=== PATIENT | male | born 1945 | race Caucasian/White ===

== ENCOUNTER 2024-04-08 11:23 | Observation (INO) | payer MEDICARE, BC, SELFPAY ==
[2024-04-08] VITALS (18 sets, daily range): BP systolic 148–199; BP diastolic 38–59; PULSE 61–64; O2SAT 96; BMI 19.8; BMI 19.1
--- NOTE | 2024-04-08 05:40 | ED.GENMED ---
History of Present Illness
<Blu Donaldson, DO - Last Filed: 04/08/24 05:46>
General
Chief Complaint: Dizziness
Source: patient
Exam Limitations: none
Time Seen by Provider: 04/08/24 05:31
History of Present Illness
History of Present Illness:
See MDM
Past History
<Blu Donaldson, DO - Last Filed: 04/08/24 05:46>
Past History
ED Past Medical History: Other (Parkinsons)
ED Past Surgical History: None
Social History
Tobacco: Non-smoker
Alcohol: None
Phy Exam
<Blu Donaldson, DO - Last Filed: 04/08/24 05:46>
Physical Exam
Physical Exam:
See MDM
Course
<Blu Donaldson, DO - Last Filed: 04/08/24 05:46>
Orders/Labs/Results
Orders:
Orders
04/08/24 05:20
Electrocardiogram (*1) Urgent
Reason for Study: Vertigo / Dizzy
04/08/24 05:21
EKG- Treatment ONCE
04/08/24 05:32
Cardiovascular Evaluation Urgent
Comment: ADD ON
Complete Blood Count/With Diff Urgent
Comprehensive Metabolic Panel Urgent
Folate Urgent
Comment: ADD ON
Glycohemoglobin (HgbA1c) Urgent
Magnesium Urgent
Comment: PHOS
Phosphorus Urgent
Comment: ADDON
TSH Reflex To Free T4 Urgent
Comment: ADD ON
Vitamin B12 Urgent
Comment: ADD ON
04/08/24 05:39
CT Head W/o Iv Contrast Urgent
Comment:
Reason For Exam: dizziness
0.9% Sodium Chloride 1000 ml [Nss] 1,000 ml IV BOLUS
Ondansetron Injectable [Zofran] 4 mg IV NOW STA
diazePAM [Valium Injection] 2 mg IV NOW STA
04/08/24 07:07
PT Consult [Pt Eval And Treat] Urgent
Treatment: vertigo
Activity Level: As Tolerated
04/08/24 08:44
HydrALAZINE [Apresoline] 5 mg IV NOW STA
diazePAM [Valium Injection] 1 mg IV NOW STA
04/08/24 08:59
Add On- LAB Urgent
Tests Added?: TSH with reflex FT4, HgbA1c, Lipid panel
MRI Brain [MR Brain W/o & With Contrast] Routine
Comment:
Reason For Exam: vertigo
Recent pill cam endoscopy?: No
Orthostatic Vital Signs As Directed
Orthostatic VS Frequency: Now
04/08/24 10:03
COVID-19 Antigen Stat
Source: Nasal Swab
Influenza A+B Rapid Molecular Stat
SIGRID Source: Nasal Swab
Specimen Description:
04/08/24 10:20
CT Head & Neck Angio W/wo IV Urgent
Comment:
Reason For Exam: acute vertigo
Aspirin 325 mg PO NOW STA
04/08/24 10:23
Meclizine [Antivert] 25 mg PO Q8HPRN PRN
04/08/24 10:28
Add On- LAB Urgent
Tests Added?: B12, folate serum
04/08/24 10:29
Add On- LAB Urgent
Tests Added?: Magnesium, phosphorus
UA Reflex to Culture [Urinalysis Reflex To Culture] Urgent
04/08/24 10:30
Admit/Transfer Patient As Directed
Co-Sign Provider:
Level of Care: Observation services
Assign to:: Telemetry
Physician / Group: Hospitalist
Diagnosis: vertigo
Reason for Telemetry: CVA/TIA
Date to Stop Telemetry: 04/11/24
Time to Stop Telemetry: 11:00
CR Chest Portable - 1 View Urgent
Comment:
Reason For Exam: weakness, eval for pneumonia
Reason Study Needs to be Portable: Unable to Transport
04/08/24 10:31
Code Status As Directed
Resuscitation Status: Full Code
PRN Pain Medication Management As Directed
May give lesser potent ordered pain med per pt: Yes
preference::
Protocol:: Medication orders for pain may be administered in a
manner that supports deferring to patient preference
when the pt is:
- Requesting an ordered lesser potent pain medication.
Least to most potent pain medications are defined
as: acetaminophen < NSAID < tramadol < opioids
(morphine, oxycodone, hydromorphone).
- Requesting a lesser dose of the same medication IF
ORDERED.
- Requesting a less intrusive route of administration
if both routes are prescribed by the provider (PO <
IV).
04/08/24 18:00
Atorvastatin [Lipitor] 80 mg PO QPM
04/09/24 08:00
Aspirin Chewable [Low Strength Aspirin] 81 mg PO DAILY
04/11/24 11:00
DC Protocol for Telemetry ONCE
Abnormal Lab Results
04/08/24
05:32
RBC 3.89 L 10^6/uL
(4.70-6.10)
Hgb 12.9 L g/dL
(13.0-18.0)
Hct 38.1 L %
(39.0-52.0)
MCV 97.9 H fL
(80.0-94.0)
MCH 33.2 H pg
(27.0-31.0)
Absolute Monos (auto) 0.8 H 10^3/uL
(0.1-0.6)
Monocytes % 14.1 H %
(1.7-9.3)
BUN 21 H mg/dl
(9-20)
Glucose 127 H mg/dl
(70-99)
04/08/24 05:32
04/08/24 05:32
Vital Signs
Initial and Last Documented VS:
Initial Vital Signs
Temp Pulse Resp BP Pulse Ox
36.2 C 62 20 199/53 98
04/08/24 05:21 04/08/24 05:21 04/08/24 05:21 04/08/24 05:21 04/08/24 05:21
Last Documented Vital Signs
Temp Pulse Resp BP Pulse Ox
36.4 C 65 16 194/59 97
04/08/24 12:55 04/08/24 12:55 04/08/24 12:55 04/08/24 12:55 04/08/24 12:55
<Yanick Farley MD - Last Filed: 04/08/24 14:48>
Orders/Labs/Results
Orders:
Orders
04/08/24 05:20
Electrocardiogram (*1) Urgent
Reason for Study: Vertigo / Dizzy
04/08/24 05:21
EKG- Treatment ONCE
04/08/24 05:32
Cardiovascular Evaluation Urgent
Comment: ADD ON
Complete Blood Count/With Diff Urgent
Comprehensive Metabolic Panel Urgent
Folate Urgent
Comment: ADD ON
Glycohemoglobin (HgbA1c) Urgent
Magnesium Urgent
Comment: PHOS
Phosphorus Urgent
Comment: ADDON
TSH Reflex To Free T4 Urgent
Comment: ADD ON
Vitamin B12 Urgent
Comment: ADD ON
04/08/24 05:39
CT Head W/o Iv Contrast Urgent
Comment:
Reason For Exam: dizziness
0.9% Sodium Chloride 1000 ml [Nss] 1,000 ml IV BOLUS
Ondansetron Injectable [Zofran] 4 mg IV NOW STA
diazePAM [Valium Injection] 2 mg IV NOW STA
04/08/24 07:07
PT Consult [Pt Eval And Treat] Urgent
Treatment: vertigo
Activity Level: As Tolerated
04/08/24 08:44
HydrALAZINE [Apresoline] 5 mg IV NOW STA
diazePAM [Valium Injection] 1 mg IV NOW STA
04/08/24 08:59
Add On- LAB Urgent
Tests Added?: TSH with reflex FT4, HgbA1c, Lipid panel
MRI Brain [MR Brain W/o & With Contrast] Routine
Comment:
Reason For Exam: vertigo
Recent pill cam endoscopy?: No
Orthostatic Vital Signs As Directed
Orthostatic VS Frequency: Now
04/08/24 10:03
COVID-19 Antigen Stat
Source: Nasal Swab
Influenza A+B Rapid Molecular Stat
SIGRID Source: Nasal Swab
Specimen Description:
04/08/24 10:20
CT Head & Neck Angio W/wo IV Urgent
Comment:
Reason For Exam: acute vertigo
Aspirin 325 mg PO NOW STA
04/08/24 10:23
Meclizine [Antivert] 25 mg PO Q8HPRN PRN
04/08/24 10:28
Add On- LAB Urgent
Tests Added?: B12, folate serum
04/08/24 10:29
Add On- LAB Urgent
Tests Added?: Magnesium, phosphorus
UA Reflex to Culture [Urinalysis Reflex To Culture] Urgent
04/08/24 10:30
Admit/Transfer Patient As Directed
Co-Sign Provider:
Level of Care: Observation services
Assign to:: Telemetry
Physician / Group: Hospitalist
Diagnosis: vertigo
Reason for Telemetry: CVA/TIA
Date to Stop Telemetry: 04/11/24
Time to Stop Telemetry: 11:00
CR Chest Portable - 1 View Urgent
Comment:
Reason For Exam: weakness, eval for pneumonia
Reason Study Needs to be Portable: Unable to Transport
04/08/24 10:31
Code Status As Directed
Resuscitation Status: Full Code
PRN Pain Medication Management As Directed
May give lesser potent ordered pain med per pt: Yes
preference::
Protocol:: Medication orders for pain may be administered in a
manner that supports deferring to patient preference
when the pt is:
- Requesting an ordered lesser potent pain medication.
Least to most potent pain medications are defined
as: acetaminophen < NSAID < tramadol < opioids
(morphine, oxycodone, hydromorphone).
- Requesting a lesser dose of the same medication IF
ORDERED.
- Requesting a less intrusive route of administration
if both routes are prescribed by the provider (PO <
IV).
04/08/24 18:00
Atorvastatin [Lipitor] 80 mg PO QPM
04/09/24 08:00
Aspirin Chewable [Low Strength Aspirin] 81 mg PO DAILY
04/11/24 11:00
DC Protocol for Telemetry ONCE
Abnormal Lab Results
04/08/24
05:32
RBC 3.89 L 10^6/uL
(4.70-6.10)
Hgb 12.9 L g/dL
(13.0-18.0)
Hct 38.1 L %
(39.0-52.0)
MCV 97.9 H fL
(80.0-94.0)
MCH 33.2 H pg
(27.0-31.0)
Absolute Monos (auto) 0.8 H 10^3/uL
(0.1-0.6)
Monocytes % 14.1 H %
(1.7-9.3)
BUN 21 H mg/dl
(9-20)
Glucose 127 H mg/dl
(70-99)
04/08/24 05:32
04/08/24 05:32
Vital Signs
Initial and Last Documented VS:
Initial Vital Signs
Temp Pulse Resp BP Pulse Ox
36.2 C 62 20 199/53 98
04/08/24 05:21 04/08/24 05:21 04/08/24 05:21 04/08/24 05:21 04/08/24 05:21
Last Documented Vital Signs
Temp Pulse Resp BP Pulse Ox
36.4 C 65 16 194/59 97
04/08/24 12:55 04/08/24 12:55 04/08/24 12:55 04/08/24 12:55 04/08/24 12:55
<Blu Donaldson, DO - Last Filed: 04/08/24 05:46>
MDM/Problems Addressed
Differential Diagnosis Includes:
HPI and MDM Narrative:
78-year-old male presenting for evaluation of dizziness. Patient states it occurred suddenly at home a few hours ago. On arrival, patient is uncomfortable. He has obvious horizontal nystagmus bilaterally but has no cerebellar signs. Patient
found to be hypertensive but there is a wide pulse pressure. His systolic blood pressures in the 200s and his diastolic blood pressure is in the 60s to 70s. He denies prior history of high blood pressure. Given his history, will treat as likely
BPPV with IV Valium. Will give fluids and obtain CT head. Will continue to monitor blood pressure
Physical exam
General: Mildly uncomfortable
HEENT: protecting airway. Horizontal nystagmus bilaterally
Neck: appears supple
CV: No evidence of cyanosis. Regular rate and rhythm
Resp: No accessory muscle use
Abd: Non-distended
Extremities: No deformities
Neuro: alert. Normal finger-nose bilaterally
Psych: Normal affect
Skin: Intact
Problems Addressed including Acute and Chronic Conditions affecting care:
1. Vertigo
Acuity: acute
Prognosis: stable
Details: Given age and symptoms, will obtain CT head. Will give dose of IV Valium
2. [ ]
Acuity: acute
Prognosis: stable
Details:
3. [ ]
Acuity: acute
Prognosis: stable
Details:
4. [ ]
Acuity: acute
Prognosis: stable
Details:
5. [ ]
Acuity:
Prognosis:
Details:
Updates
Differential Diagnosis (but not limited to): Vertigo, posterior stroke
Testing considered: CT angiogram head and neck
Drug therapy (if applicable): OTC meds, please see d/c instruction regarding Rx drugs
Amount and/or Complexity of Data Reviewed
Clinical info obtained from: Patient
External data reviewed: N/A
Labs I independently reviewed (but not limited to): [ ]
Radiology: N/A
Pulse Ox: not hypoxic
EKG independently reviewed: Sinus rhythm, normal axis, no STEMI
[place] Hand: Sinus rhythm
Critical Care: N/A
Risk of Complication:
Social Determinants of health: Good social support
Discussed with other providers: N/A
Escalation of Care includes Admit/Obs: After being observed in the Emergency Department, pt stable for discharge.
Occasional wrong word or 'sound a like' substitutions may have occurred due to the inherent limitations of voice recognition software. Read the chart carefully and recognize, using context, where substitutions have occurred.
<Yanick Farley MD - Last Filed: 04/08/24 14:48>
*Critical Care Note
Total Time (30-74mins, 75-104mins- exclusive of procedures): Not Applicable
<Yanick Farley MD - Last Filed: 04/08/24 14:48>
Update Note
Update Note:
UPDATE (Yanick Farley MD)
I have seen and evaluated the patient after signout and reviewed all labs and imaging.
Focused HPI: 78-year-old male presented with dizziness acute onset after waking up in the bathroom this morning. Describes room spinning sensation associate with nausea vomiting. No other neurologic complaints.
Physical exam: Awake alert laying still in bed. No cranial nerve deficits. Motor and sensory intact all extremities.
Medical Decision Makin-year-old male presenting with vertigo. Noted to be hypertensive and he remains hypertensive. He had labs including a CBC and a CMP which showed no clinically significant abnormalities. CT head negative for any acute
pathology. EKG shows sinus rhythm. He was given IV Valium and fluids but reports minimal improvement. Will repeat Valium. Treat blood pressure. Admit for continued management of vertigo and to rule out acute CVA. Discussed with hospitalist.
ED Attending Note
<Blu Donaldson DO - Last Filed: 04/08/24 05:46>
-
Portions of this chart may have been created with voice recognition software.� Occasional wrong word or��sound alike� substitutions may have occurred due to the inherent limitations of voice recognition software.
Discharge Plan
Departure
Patient Disposition: Admit
Date of Disposition: 04/08/24
Time of Disposition: 08:44
Admit to doctor: Cat[facility]
Presentation/result/management discussed w/ accepting MD/DO: Hospitalist
Discharge Problem:
Vertigo
Interventions
Interventions:
*Risk Screen - Suicide Last Done: 04/08/24 05:21
*General Assessment Last Done: 04/08/24 05:21
*Neglect/Abuse Screening Last Done: 04/08/24 05:21
ED- Neurological Assessment Last Done: 04/08/24 05:38
ED Swallowing Screen Last Done: 04/08/24 05:38
[2024-04-08 05:44] LABS: % Basophils 0.9 % (0-2); % Eosinophils 1.1 % (0-6); % Immature Granulocytes 0.4 % (0-0.5); % Lymphocytes 21.3 % (20.5-51.1); % Monocytes 14.1 % (1.7-9.3); % Neutrophils 62.2 % (42.2-75.2); Absolute Basophils 0.1 10^3/uL (0-0.2); Absolute Eosinophils 0.1 10^3/uL (0-0.7); Absolute Lymphocytes 1.2 10^3/uL (1.2-3.4); Absolute Monocytes 0.8 10^3/uL (0.1-0.6); Absolute Neutrophils 3.4 10^3/uL (1.4-6.5); Hematocrit 38.1 % (39.0-52.0); Hemoglobin 12.9 g/dL (13.0-18.0); Mean Corp Hgb Conc. 33.9 g/dL (33.0-37.0); Mean Corpuscular Hgb 33.2 pg (27.0-31.0); Mean Corpuscular Volume 97.9 fL (80.0-94.0); Mean Platelet Volume 9.4 fL (7.4-10.4); Nucleated Red Blood Cells % 0 % (-); Platelet Count 176 10^3/uL (130-400); Red Blood Cell Count 3.89 10^6/uL (4.70-6.10); Red Cell Dist. Width 13.4 % (11.5-14.5); White Blood Cell Count 5.4 10^3/uL (4.8-10.8)
[2024-04-08] MEDS: NSS 1000 IV (05:44)
[2024-04-08] MEDS: ZOFRAN 4 MG IV (05:45)
[2024-04-08] MEDS: VALIUM INJECTION 2 MG IV (05:46)
[2024-04-08 06:10] LABS: ALT (SGPT) < 10 U/L (0-50); AST (SGOT) 21 U/L (17-59); Albumin 3.6 g/dl (3.5-5.0); Alkaline Phosphatase 61 U/L (38-126); Blood Urea Nitrogen 21 mg/dl (9-20); Calcium 8.9 mg/dl (8.4-10.2); Carbon Dioxide 28 mmol/L (22-30); Chloride 101 mmol/L (98-107); Estimated Creatinine Clearance 70 ml/min; Glucose 127 mg/dl (70-99); Potassium 4.1 mmol/L (3.5-5.1); Sodium 137 mmol/L (135-145); Total Bilirubin 0.5 mg/dl (0.2-1.3); Total Protein 6.4 g/dl (6.3-8.2); eGFR > 60.00
[2024-04-08 09:51] LABS: HDL Cholesterol 86 mg/dl; LDL Cholesterol, Calculated 80 mg/dl; Total Cholesterol 178 mg/dl (50-199); Triglyceride 61 mg/dl (10-149); Very Low Density Lipoprotein 12 mg/dl (0-30)
[2024-04-08] MEDS: APRESOLINE 5 MG IV (10:06)
[2024-04-08] MEDS: VALIUM INJECTION 1 MG IV (10:06)
--- NOTE | 2024-04-08 10:15 | EDRN ---
This RN KI took over care on this pt at 10:15.
[2024-04-08 10:23] LABS: TSH Reflex To Free T4 1.51 uIU/ml (0.47-4.68)
--- NOTE | 2024-04-08 10:35 | HPS.HSE ---
Family Physician
-
Family Physician: Geoffrey Briones
Chief Complaint
-
vertigo
History of Present Illness
78yo M with PMHx of , parkinsons came with acute onset of vertigo at night, when he woke up from sleep to go to the bathroom, associated with profound generalized weakness. No fevers, chills or respiratory symptoms lately. As per bedside -
fascial asymmetry is known to her and hse sees no difference in fascial expression from usual. Neurologically: significant horizontal nystagmus, vertigo exacerbated on head movement without tinnitus
Medical History
Past Medical History
Past Medical History: Reports Other (See HPI)
Past Surgical History: Reports None
Social History
Tobacco: Non-smoker
Alcohol: None
Drug: None
Family History
Family History: Not pertinent
Allergies / Home Medications
Allergies reflects when Allergies were last updated in [facility].
Home Medications with original date entered in [facility]
Allergy/Medication List:
Allergies
Allergy/AdvReac Type Severity Reaction Status Date / Time
Penicillins Allergy Unknown Verified 04/08/24 05:35
Home Medications
budesonide 3 mg capsule,delayed,extended release 3 mg PO DAILY 04/08/24
carbidopa ER 25 mg-levodopa 100 mg tablet,extended release 1 tab PO HS 04/08/24
rasagiline 1 mg tablet 1 mg PO DAILY 04/08/24
Review of Systems
-
History Source: Patient
A 12 point ROS was completed and negative except as noted: Yes
Neurological: Reports See HPI
Physical Exam
Vital Signs
Vital Signs
Temp Pulse Resp BP Pulse Ox
97.2 F 59 12 171/42 96
04/08/24 05:21 04/08/24 10:06 04/08/24 09:00 04/08/24 10:06 04/08/24 09:00
Physical Exam
General: No Apparent Distress, Comfortable and Conversant
HEENT: NormoCephalic, Anicteric and Moist mucous membranes
Respiratory: Clear; No Wheezes, Rales or Crackles
Cardiac: S1/S2 and Regular Rhythm; No Murmur
GI: Soft, Non Tender and Non Distended
Genito-urinary: No costovertebral tender
Musculoskeletal: No Clubbing, No Cyanosis and No Edema
Skin: Warm; No Rash, Jaundice or Lesions
Neuro: Awake, Alert, Oriented, AO x 3, No Motor Deficits and Other (horizontal nystagmus)
Psych: Calm
Laboratory Results
-
04/08/24 05:32
04/08/24 05:32
Laboratory Results
Total Bilirubin 0.5 mg/dl (0.2-1.3) 04/08/24 05:32
AST 21 U/L (17-59) 04/08/24 05:32
ALT < 10 U/L (0-50) 04/08/24 05:32
Alkaline Phosphatase 61 U/L (38-126) 04/08/24 05:32
Data Reviewed
-
CT Scan: Report Reviewed by me
Lab Data: Labs Reviewed by me
Impression/Plan
-
78yo M with PMHx of , parkinsons came with acute onset of vertigo at night, when he woke up from sleep to go to the bathroom, associated with profound generalized weakness. No fevers, chills or respiratory symptoms lately. As per bedside -
fascial assymetry is known to her and hse sees no difference in fascial expression from usual. Neurologiscally significant horyzontal nystagmus, vertigo exacerbated on head movement without tinnitus
A/P:
#Acute vertigo r/o TIA/CVA
ASA, statin
CT head unremarkable
CTA head
Permissive hypertension, labetalol for BP>180/105
telemetry, echo, neurology consult
TSH, HGbA1c, lipid profile
MRI brain
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
meclizine PRN
#Malaise
#Mild macrocytic anemia
check COVID-19 and influenza
check B1`2, folate
PT/OT
can be 2/2 parkinsons
check ortho VS
check UA and chest XR, electrolytes
#UC
#Parkinson disease
cont home meds
DVT ppx SCDs until sroke ruled out
Full code as agreed with patient and bedside
I have spent at least 78min reviewing chart, test results, communication with consultants and direct patient care
[2024-04-08 10:44] LABS: COVID-19 Antigen Negative (Negative)
[2024-04-08 11:15] LABS: Phosphorus 3.7 mg/dl (2.5-4.5)
[2024-04-08 11:16] LABS: Glycohemoglobin (HgbA1c) 5.1 % (4.0-5.6)
[2024-04-08 11:53] LABS: Folate 11.7 ng/ml (2.76-20); Vitamin B12 249 pg/ml (239-931)
[2024-04-08] MEDS: SINEMET 25-100 1.5 TABLET PO (13:30)
--- NOTE | 2024-04-08 14:41 | CON.NEURO ---
Consultation
Order
Date of Consultation: 04/08/24
Requesting Provider:
Reason for Consult: Neurology Consultation Note.
HPI: This is a 78-year-old left-handed man who presented to [facility] on 04/08/2024 with vertigo. According to the patient reports waking up during the night to use the bathroom and experiencing vertigo before getting out of bed. He
is unsure whether the dizziness was provoked by movement or occurred at rest. The patient states that he still feels dizzy to a degree, but it does not worsen when moving his head from side to side. He also reports experiencing nausea.
No reports of head trauma, headaches, diplopia, worsening of baseline dysphagia to solids or dysarthria. History of similar episodes, ear pain or tinnitus. He did have recent travel via airplane.
Mr. Snow has a history of Parkinson's disease and is currently being treated with Carbidopa-Levodopa and Azilect 1 mg once a day. He reports developing resting tremor in his left hand that progressed to his left leg. The patient states that his
recurrent rim-enhancing behaviors have significantly subsided following initiation of melatonin in the past. The patient is not forthcoming with reporting/acknowledging visual hallucinations.
Mr. Snow denies any recent head trauma or memory issues. He has a history of back surgery, hernia repair, and cataract surgery. The patient is allergic to penicillin. He has not experienced any difficulties with swallowing, except when taking
medications. He reports being slim all his life but has lost some weight in recent years. The patient denies smoking or drinking alcohol. His family medical history includes his mother having COPD and slight dementia, and his father having emphysema.
ER VS: 199/53, 62, afebrile.
EKG:NSR, QTc Int : 499 ms
PDMP:none
Labs: Glucose�127, normal sodium, hemoglobin A1c, B12 249, normal TSH
CT head wo contrast
CTA head/neck-no evidence of high-grade stenosis.
Brain MRI wo josi-no acute infarcts, moderate leukoaraiosis.
PMH: Parkinsonism (2019),
PSH: Lumbar laminectomy, hernia surgery, bilateral cataract surgery,
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
FH: Mother�COPD, cognitive impairment in her early 90s, father had emphysema.
All: Penicillin,
ROS: Positive for weight loss
HENT: Positive for dysphagia to tablets, vertigo, hearing impairment
Eyes: Negative. Negative for photophobia, pain and visual disturbance.
Respiratory: Negative for cough, choking and shortness of breath.
Cardiovascular: Negative for chest pain, palpitations and leg swelling.
Gastrointestinal: Positive for nausea
Endocrine: Negative. Negative for cold intolerance.
Genitourinary: Negative for dysuria, flank pain and urgency.
Musculoskeletal: Positive for neck pain
Skin: Negative for rash.
Allergic/Immunologic: Negative. Negative for immunocompromised state.
Neurological: Positive for hand tremor, vertigo
Psychiatric/Behavioral: Positive for anxiety
General: Well developed. In no acute distress.
Cardio: Regular rate and rhythm without murmur. Extremities are without cyanosis or edema.
Neuro:
Mental Status: Alert, oriented to person, place, and date. Normal attention and recall. Good fund of knowledge. Follows complex requests across the midline. Comprehension, naming, and repetition intact. Impaired delayed recall
Cranial Nerves: Pupils are equally round, surgical EOMs full. Visual nicolas full to confrontation. No ptosis. Sustained nystagmus on the left lateral gaze and upgaze. V1-V3 intact to light touch and pinprick bilaterally, symmetric. Mild right
facial weakness. Poor hearing AU. The palate elevated well. SCMs and traps 5/5. Tongue midline. Mild dysarthria.
Motor: Increased motor toneL>R. No pronator or arm drift. Strength 5/5 throughout. No clonus.
Reflexes: 3+ throughout the upper extremities and 3+ knees. Black's�positive bilaterally. Jaw jerk�equivocal. Positive suprapatellar plantar responses flexor bilaterally.
Sensory: Normal vibration at the ankles
Coordination: Resting left hand arm and leg tremor. Mild action hand tremor, No dysmetria
Gait: deferred
Assessment and Plan:
I. Peripheral vertigo
II. Parkinsonism. ? LBD
III. Hypertensive urgency
IV. Prolonged QTc interval.
V. Cerebral microvascular disease.
-Fall precautions
-Continue Sinemet 25/100 1 and half tablet 3 times a day and Azilect 1 mg once a day
-Meclizine 25 mg every 8 hours as needed
-Check thiamine level before starting start thiamine IV
-Blood pressure normalization
-Start p.o. vitamin B12
-ENT consult
-PT
-DVT prophylaxis
I personally reviewed all radiology and labs along with past medical records pertinent to current medical problems. Total time spent in patient care is 60 minutes.
Thank you for allowing us to participate in the care of this patient. We will continue to follow. Please do not hesitate to contact us with any questions or concerns.
Subjective/Objective
Subjective Data
Date of Service: April 08, 2024
Objective Data
Vital Signs
Temp Pulse Resp BP Pulse Ox
36.4 C 65 16 194/59 97
04/08/24 12:55 04/08/24 12:55 04/08/24 12:55 04/08/24 12:55 04/08/24 12:55
Lab Results
04/08/24 05:32
04/08/24 05:32
Sodium 137 mmol/L (135-145) 04/08/24 05:32
Potassium 4.1 mmol/L (3.5-5.1) 04/08/24 05:32
BUN 21 mg/dl (9-20) H 04/08/24 05:32
Glucose 127 mg/dl (70-99) H 04/08/24 05:32
Calcium 8.9 mg/dl (8.4-10.2) 04/08/24 05:32
Phosphorus 3.7 mg/dl (2.5-4.5) 04/08/24 05:32
LDL Cholesterol, Calc 80 mg/dl 04/08/24 05:32
Vitamin B12 249 pg/ml (243-151) 04/08/24 05:32
Patient Allergies
Penicillins Allergy (Verified 04/08/24 05:35)
Unknown
Medications
-
Active Medications
Generic Name Dose Route Start Last Admin
Trade Name Freq PRN Reason Stop Dose Admin
Aspirin 81 mg 04/09/24 08:00
Aspirin 81 Mg Chewable Tablet PO 05/07/24 07:59
DAILY NUBIA
Atorvastatin Calcium 80 mg 04/08/24 18:00
Atorvastatin (Lipitor) 80 Mg Tablet PO 05/06/24 17:59
QPM NUBIA
Cyanocobalamin 1,000 mcg 04/08/24 13:00
Cyanocobalamin (1000 Mcg/Ml) 1 Ml Vial IM 05/06/24 12:59
DAILY NUBIA
Labetalol HCl 10 mg 04/08/24 13:51
Labetalol Hcl 5 Mg/1 Ml (20 Mg/4 Ml) Injection IV 05/06/24 13:50
Q6HPRN PRN
sbp>180 DBP>105
Meclizine HCl 25 mg 04/08/24 10:23
Meclizine 25 Mg Tablet PO 05/06/24 10:22
Q8HPRN PRN
vertigo
Home Medications
�Medication �Instructions �Recorded
budesonide 3 mg 3 mg PO DAILY 04/08/24
capsule,delayed,extended release
carbidopa ER 25 mg-levodopa 100 mg 1 tab PO HS 04/08/24
tablet,extended release
rasagiline 1 mg tablet 1 mg PO DAILY 04/08/24
[2024-04-08] MEDS: ASPIRIN 325 MG PO (15:45)
[2024-04-08] MEDS: CYANOCOBALAMIN 1000 MCG IM (15:47)
[2024-04-08] MEDS: ANTIVERT 25 MG PO (16:12)
--- NOTE | 2024-04-08 16:55 | EDRN ---
Pt received boxed lunch at this time.
[2024-04-08 18:21] LABS: APTT 32.7 Sec (23.4-35.0); INR 1.05
[2024-04-08] MEDS: THIAMINE INJECTION 100 MG IV (18:37)
[2024-04-08] MEDS: MELATONIN 10 MG PO (21:25)
[2024-04-08] MEDS: SINEMET CR 25-100 (EXTENDED RELEASE) 1 TABLET PO (21:25)
[2024-04-08 21:54] LABS: Urine Albumin Negative (Neg - Trace); Urine Bilirubin Negative (Negative); Urine Character Clear (Clear); Urine Color Yellow; Urine Glucose Negative (Negative); Urine Ketone 1+ (Negative); Urine Leukocyte Negative (Negative); Urine Nitrite Negative (Negative); Urine Occult Blood Negative (Negative); Urine Specific Gravity 1.015 (<1.030); Urine Urobilinogen Negative (Neg - 1+); Urine pH 6.5 (5.0-9.0)
[2024-04-09 03:38] VITALS: BP 152/49
[2024-04-09 06:41] VITALS: BP 149/50
[2024-04-09 07:23] LABS: % Basophils 0.5 % (0-2); % Eosinophils 0.9 % (0-6); % Immature Granulocytes 0.3 % (0-0.5); % Lymphocytes 20.3 % (20.5-51.1); % Monocytes 10.5 % (1.7-9.3); % Neutrophils 67.5 % (42.2-75.2); Absolute Eosinophils 0.1 10^3/uL (0-0.7); Absolute Lymphocytes 1.3 10^3/uL (1.2-3.4); Absolute Monocytes 0.7 10^3/uL (0.1-0.6); Absolute Neutrophils 4.3 10^3/uL (1.4-6.5); Hematocrit 36.6 % (39.0-52.0); Hemoglobin 12.3 g/dL (13.0-18.0); Mean Corp Hgb Conc. 33.6 g/dL (33.0-37.0); Mean Corpuscular Hgb 33.1 pg (27.0-31.0); Mean Corpuscular Volume 98.4 fL (80.0-94.0); Mean Platelet Volume 9.7 fL (7.4-10.4); Nucleated Red Blood Cells % 0 % (-); Platelet Count 167 10^3/uL (130-400); Red Blood Cell Count 3.72 10^6/uL (4.70-6.10); Red Cell Dist. Width 13.4 % (11.5-14.5); White Blood Cell Count 6.4 10^3/uL (4.8-10.8)
[2024-04-09 08:10] LABS: ALT (SGPT) < 10 U/L (0-50); AST (SGOT) 19 U/L (17-59); Albumin 3.1 g/dl (3.5-5.0); Alkaline Phosphatase 52 U/L (38-126); Blood Urea Nitrogen 16 mg/dl (9-20); Calcium 8.3 mg/dl (8.4-10.2); Carbon Dioxide 29 mmol/L (22-30); Chloride 100 mmol/L (98-107); Estimated Creatinine Clearance 67 ml/min; Glucose 80 mg/dl (70-99); HDL Cholesterol 76 mg/dl; LDL Cholesterol, Calculated 63 mg/dl; Potassium 3.7 mmol/L (3.5-5.1); Sodium 134 mmol/L (135-145); Total Bilirubin 1.2 mg/dl (0.2-1.3); Total Cholesterol 152 mg/dl (50-199); Total Protein 5.6 g/dl (6.3-8.2); Triglyceride 67 mg/dl (10-149); Very Low Density Lipoprotein 13 mg/dl (0-30); eGFR > 60.00
[2024-04-09 08:58] VITALS: BP 144/48; BP 150/49; PULSE 66; O2SAT 99
[2024-04-09 08:59] VITALS: BP 144/48; PULSE 67; O2SAT 99
[2024-04-09] MEDS: RASAGILINE MESYLATE 1 MG PO (09:13)
[2024-04-09] MEDS: CYANOCOBALAMIN 1000 MCG IM (09:13)
[2024-04-09] MEDS: ANTIVERT 25 MG PO (09:13)
[2024-04-09] MEDS: LOW STRENGTH ASPIRIN 81 MG PO (09:13)
[2024-04-09] MEDS: THIAMINE INJECTION 100 MG IV (09:14)
--- NOTE | 2024-04-09 10:32 | CM ---
BOO letter completed and placed on chart. Patient lives in a 2 story home, with a first floor set up for bed and bathroom, patient is independent with adl's and ambulation, no dme, patient is very active, runs. Patient drives. Home with spouse when
stable, no needs.
PCP: Geoffrey Briones
[facility] in [place].
Plan; Home when stable, no needs.
--- NOTE | 2024-04-09 10:36 | W.PN.HOSP.TC ---
Today's Communication/Plan
-
DC
Assessment / Plan
Assessment / Plan
78yo M with PMHx of , Parkinson came with acute onset of vertigo, eventually confirmed to be started couple of days prior to admission after he landed his flight from [place]. Improved. MRI brain showed: No acute intracranial abnormality noted.
CTA head/neck: no LVO and no clinically significant carotid stenosis. Vertigo improved, so patient was able to ambulate. Since no stroke and possible BPPV as an etiology of the vertigo -recommended outpatient ENT for audiogram. Found B12
deficiency. Medically stable for d/c home on meclizine PRN. Also concern for HTN urgency on admission started on low dose Nifedipine. Telemetry without clinically significant arrhythmia
A/P:
#Acute vertigo, possible BPPV vs labyrinthitis
CT head unremarkable
Permissive hypertension, labetalol for BP>180/105
telemetry, echo, neurology consult
TSH, HGbA1c, lipid profile
MRI brain
[employer]
bedside egg grader for diet
meclizine PRN
B1 test sent by neurologist
ENT as outpatient
#Malaise
#Mild macrocytic anemia 2/2 b12 deficiency
COVID-19 and influenza neg
b12 supplement
PT/OT
can be 2/2 Parkinson
check ortho VS
UA and chest XR unremarkable
#Hypertensive urgency
start Nifedipine as stroke ruled out
#UC
#Parkinson disease
cont home meds
DVT ppx SCDs until sroke ruled out
Full code as agreed with patient and bedside
I have spent at least 38min reviewing chart, test results, communication with consultants and direct patient care
Anticipated Discharge: Today
Subjective/Interval History
-
Date of Service: April 09, 2024
Objective Data
-
Labs:
Laboratory Results
04/09/24
06:15
WBC 6.4
Hgb 12.3 L
Hct 36.6 L
Plt Count 167
Sodium 134 L
Potassium 3.7
Chloride 100
Carbon Dioxide 29
BUN 16
Creatinine 0.7
Glucose 80
Calcium 8.3 L
Total Bilirubin 1.2
AST 19
ALT < 10
Alkaline Phosphatase 52
Vital Signs:
Vital Signs
Temp Pulse Resp BP Pulse Ox
97.1 F 60 18 149/50 97
04/09/24 06:41 04/09/24 06:41 04/09/24 06:41 04/09/24 06:41 04/09/24 06:41
Review of Systems
-
History Source: Patient
All other systems: Reviewed and negative
Physical Exam
-
General: No Apparent Distress
HEENT: Normocephalic
Cardiac: Regular Rhythm
GI: Soft, Nontender and Nondistended
Neuro: Awake, Alert, Oriented and AO x 3
Psych: Calm
--- NOTE | 2024-04-09 10:52 | W.DCSUMMARY ---
Discharge Summary
Discharge Data
Date of Admission: 04/08/24
Date of Discharge: 04/09/24
-
Pending Results: No
Hospital Course
78yo M with PMHx of , Parkinson came with acute onset of vertigo, eventually confirmed to be started couple of days prior to admission after he landed his flight from [place]. Improved. MRI brain showed: No acute intracranial abnormality noted.
CTA head/neck: no LVO and no clinically significant carotid stenosis. Vertigo improved, so patient was able to ambulate. Since no stroke and possible BPPV as an etiology of the vertigo -recommended outpatient ENT for audiogram. Found B12
deficiency. Neurology also started on thiamine. Medically stable for d/c home on meclizine PRN. Also concern for HTN urgency on admission started on low dose Nifedipine. Telemetry without clinically significant arrhythmia
I have spent at least 38min reviewing chart, test results, communication with consultants and direct patient care
Patient was managed for:
#Acute vertigo, possible BPPV vs labyrinthitis
#Malaise
#Mild macrocytic anemia 2/2 b12 deficiency
#Hypertensive urgency
#UC
#Parkinson disease
Discharge Plan
-
Patient Disposition: Home (Routine Discharge)
Discharge Diagnosis/Procedures: Vertigo
Diet: Low Cholesterol
Activity: As tolerated
Driving Restrictions: Not until seen by your Dr
Other Services: PT
Referrals:
Geoffrey Briones MD [Family Provider] -
Yanick Roberson MD [Active] - in less than 1 week (For audiogram)
Prescriptions:
New
cyanocobalamin (vitamin B-12) 1,000 mcg capsule
1,000 mcg PO DAILY Qty: 30 0RF
multivitamin Tablet
1 tab PO DAILY Qty: 30 0RF
nifedipine 30 mg Tablet Extended Release
30 mg PO DAILY Qty: 30 0RF
meclizine 25 mg Tablet
25 mg PO Q8HPRN PRN (Reason: vertigo) Qty: 90 0RF
thiamine HCl (vitamin B1) 100 mg capsule
100 mg PO DAILY Qty: 30 0RF
Continued
carbidopa-levodopa 25-100 mg Tablet Extended Release
1 tab PO HS
budesonide 3 mg Capsule,Delayed,Extend.Release
3 mg PO DAILY
rasagiline 1 mg Tablet
1 mg PO DAILY
melatonin 10 mg Tablet
10 mg PO HS PRN (Reason: sleep)
Discharge Orders:
Discharge Patient (As Directed); Ordered 04/09/24
Ordered By: David Bourgeois
Discharge Date and Time
Print Language: SOUTH SUDANESE
[2024-04-09] MEDS: PROCARDIA XL (EXTENDED RELEASE) 30 MG PO (11:06)
[2024-04-09 11:09] VITALS: BP 173/51
[2024-04-12 09:56] LABS: Vitamin B1, Whole Blood 138 nmol/L (70-180)
== END 2024-04-09 11:40 | disposition home or self-care (01) ==
LOC: 4 WEST ACU 11:23
PROVIDERS: ADMITTING PHYSICIAN Internal Medicine; CONSULT PHYSICIAN Psychiatry & Neurology Neurology; EMERGENCY PHYSICIAN Student in an Organized Health Care Education/Training Program; FAMILY PHYSICIAN Internal Medicine
DX: R42 Dizziness and giddiness (principal); G20.A1 Parkinson's disease without dyskinesia, without mention of fluctuations; R53.1 Weakness; I16.0 Hypertensive urgency; I49.8 Other specified cardiac arrhythmias; I44.4 Left anterior fascicular block; E53.8 Deficiency of other specified B group vitamins; I11.9 Hypertensive heart disease without heart failure; H55.00 Unspecified nystagmus; R11.2 Nausea with vomiting, unspecified; Z88.0 Allergy status to penicillin; D53.9 Nutritional anemia, unspecified; R53.81 Other malaise; R63.4 Abnormal weight loss; Z68.1 Body mass index [BMI] 19.9 or less, adult; Z11.52 Encounter for screening for COVID-19; Z83.6 Family history of other diseases of the respiratory system; Z82.0 Family history of epilepsy and other diseases of the nervous system
CPT/HCPCS: 70450; 70496; 70498; 70553; 71045; 80053; 80061; 81003; 82607; 82746; 83036; 83735; 84100; 84425; 84443; 85025; 85610; 85730; 87502; 87811; 93005; 96361; 96374; 96375; 96376; 97161; 97166; 99285; A9575; G0378; Q9967

== ENCOUNTER 2024-12-05 05:24 | Emergency (ER) | payer MEDICARE, BC, SELFPAY ==
[2024-12-05 05:32] VITALS: BP 170/100
[2024-12-05 06:04] LABS: Hematocrit 35.7 % (39.0-52.0); Hemoglobin 11.3 g/dL (13.0-18.0); Mean Corp Hgb Conc. 31.7 g/dL (33.0-37.0); Mean Corpuscular Volume 88.4 fL (80.0-94.0); Nucleated Red Blood Cells % 0 % (-); Platelet Count 301 10^3/uL (130-400); Red Cell Dist. Width 17.5 % (11.5-14.5)
[2024-12-05 06:05] VITALS: BP 188/94
[2024-12-05 06:15] VITALS: BMI 19.9
[2024-12-05 06:18] LABS: Urine Character Clear (Clear)
[2024-12-05 06:26] LABS: ALT (SGPT) < 10 U/L (0-50); AST (SGOT) 22 U/L (17-59); Albumin 4.3 g/dl (3.5-5.0); Alkaline Phosphatase 74 U/L (38-126); Blood Urea Nitrogen 22 mg/dl (9-20); Calcium 9.8 mg/dl (8.4-10.2); Carbon Dioxide 29 mmol/L (22-30); Chloride 102 mmol/L (98-107); Estimated Creatinine Clearance 69 ml/min; Glucose 85 mg/dl (70-99); Potassium 4.7 mmol/L (3.5-5.1); Sodium 136 mmol/L (135-145); Total Protein 8.2 g/dl (6.3-8.2); eGFR > 60.00
[2024-12-05 06:38] LABS: Troponin I 0.015 ng/ml
--- NOTE | 2024-12-05 06:51 | ED.GENMED ---
History of Present Illness
<Afshin Pollock MD, Resident - Last Filed: 12/05/24 14:26>
General
Chief Complaint: Cardiac Symptoms
Source: patient and spouse
Time Seen by Provider: 12/05/24 06:25
History of Present Illness
History of Present Illness:
Mr. Snow is a 79-year-old male with history of Parkinson's disease and CAD with bovine aortic valve replacement and triple bypass on 10/04/2024 CT A/P 2X thoracentesis (last one 2 weeks ago and next CXR scheduled Wednesday) for left pleural effusion
at [facility] who presented via EMS with hypertension (SBP 190s), sweats, and indigestion/burping since 3 AM. Per his , Mr. Snow has actually been hypotensive, especially orthostatic, and has had multiple falls since his surgery. They have
been working with his woodworking shop hand Dr. Grubbs at [facility] to correct his hypertension. He was started on midodrine 2.5 mg twice daily on Wednesday. Per their home BP log, Mr. Snow's sitting BP on Wednesday was 134/79, HR 62 and standing 103/68, HR
64. After his p.m. midodrine dose around 5 PM, his sitting BP was 195/103 and standing was 182/100. That was his last midodrine dose. His most recent BP on Wednesday was 200/93. Mr. Snow states that as of Wednesday night progressed into
Wednesday, he felt more more uncomfortable. He reports 'shaking,' burping, feeling tenderness in his mid/left abdomen, having intermittent palpitations, and being nauseous and anxious during this time. He denies back/chest pain, headache,
SOB, fevers, or recent travel. He also endorses urinary frequency that wakes him up once every 1 to 1-1/2 hours at night. His Parkinson's medications were also recently changed. Last week, his carbidopa-levodopa was stopped and he was started on
Crexont 70-280 4x daily.
Past History
<Afshin Pollock MD, Resident - Last Filed: 12/05/24 14:26>
Past History
ED Past Medical History: CAD (S/p triple bypass and AVR 09/2024) and Other (Parkinsons, history of Crohn's (apparently resolved))
ED Past Surgical History: Cardiac (AVR and triple bypass on 10/04/2024) and Orthopedic (Back surgery and hernia repair)
Social History
Tobacco: Non-smoker
Alcohol: None
Drug: None
Personal:
Living: with family
Review of Systems
<Afshin Pollock MD, Resident - Last Filed: 12/05/24 14:26>
Review of Systems
Allergies reviewed?: No
Other source history: family
All Other Systems: ROS reviewed and negative except as documented in HPI and ROS
Constitutional: Reports night sweats
Cardiac: Reports diaphoresis and palpitations
ABD/GI: Reports abdominal pain (Mid to left abdomen)
: Reports frequency
Phy Exam
<Afshin Pollock MD, Resident - Last Filed: 12/05/24 14:26>
General Physical Exam
General Presentation: no apparent distress
General Skin: warm and dry
General Habitus: cachetic
General Mental: alert
ENT Exam
ENT Exam: EOMI
Cardiovascular Exam
Cardiovascular Exam: regular rate/rhythm and sternotomy scar
Heart Sounds: normal
Pulmonary Exam
Pulmonary Exam: no respiratory distress and decreased breath sounds (Left lung)
Gastrointestinal Exam
Gastrointestinal Exam: normal bowel sounds, non tender, soft and non distended
Musculoskeletal Exam
Musculoskeletal Exam: edema (Bilaterally and ankles, left worse than right)
Course
<Afshin Pollock MD, Resident - Last Filed: 12/05/24 14:26>
Orders/Labs/Results
Orders:
Orders
12/05/24 05:38
Electrocardiogram (*1) Urgent
Reason for Study: Other
Other Reason for Exam: cold sweats, indegestion
12/05/24 05:39
EKG- Treatment ONCE
12/05/24 05:53
Complete Blood Count/With Diff Urgent
Comprehensive Metabolic Panel Urgent
NT-proBNP Urgent
Comment: ADD ON
Troponin I Urgent
12/05/24 05:54
Urinalysis Reflex To Culture Urgent
Date Specimen was Collected: 12/05/24
Time Specimen was Collected: 05:52
12/05/24 07:11
Add On- LAB Urgent
Tests Added?: BNP
CR Chest - 2 Views Urgent
Comment:
Reason For Exam: recent bypass/AVR, now with HTN
12/05/24 07:27
Blood Culture Q30M
SIGRID Source: Blood/Venous
Specimen Description:
12/05/24 09:01
Troponin I Urgent
Blood Culture Q30M
SIGRID Source: Blood/Venous
Specimen Description:
Abnormal Lab Results
12/05/24
05:53
RBC 4.04 L 10^6/uL
(4.70-6.10)
Hgb 11.3 L g/dL
(13.0-18.0)
Hct 35.7 L %
(39.0-52.0)
MCHC 31.7 L g/dL
(33.0-37.0)
RDW 17.5 H %
(11.5-14.5)
Absolute Lymphs (auto) 1.0 L 10^3/uL
(1.2-3.4)
Absolute Monos (auto) 0.7 H 10^3/uL
(0.1-0.6)
Lymphocytes % 14.7 L %
(20.5-51.1)
Monocytes % 10.5 H %
(1.7-9.3)
BUN 22 H mg/dl
(9-20)
12/05/24 05:53
12/05/24 05:53
Vital Signs
Initial and Last Documented VS:
Initial Vital Signs
Temp Pulse Resp BP Pulse Ox
98.4 F 79 16 170/100 99
12/05/24 05:32 12/05/24 05:32 12/05/24 05:32 12/05/24 05:32 12/05/24 05:32
Last Documented Vital Signs
Temp Pulse Resp BP Pulse Ox
98.4 F 70 22 102/61 96
12/05/24 05:32 12/05/24 09:30 12/05/24 09:30 12/05/24 10:00 12/05/24 09:30
<Abhishek Abbott, DO - Last Filed: 12/05/24 10:02>
Orders/Labs/Results
Orders:
Orders
12/05/24 05:38
Electrocardiogram (*1) Urgent
Reason for Study: Other
Other Reason for Exam: cold sweats, indegestion
12/05/24 05:39
EKG- Treatment ONCE
12/05/24 05:53
Complete Blood Count/With Diff Urgent
Comprehensive Metabolic Panel Urgent
NT-proBNP Urgent
Comment: ADD ON
Troponin I Urgent
12/05/24 05:54
Urinalysis Reflex To Culture Urgent
Date Specimen was Collected: 12/05/24
Time Specimen was Collected: 05:52
12/05/24 07:11
Add On- LAB Urgent
Tests Added?: BNP
CR Chest - 2 Views Urgent
Comment:
Reason For Exam: recent bypass/AVR, now with HTN
12/05/24 07:27
Blood Culture Q30M
SIGRID Source: Blood/Venous
Specimen Description:
12/05/24 09:01
Troponin I Urgent
Blood Culture Q30M
SIGRID Source: Blood/Venous
Specimen Description:
Abnormal Lab Results
12/05/24
05:53
RBC 4.04 L 10^6/uL
(4.70-6.10)
Hgb 11.3 L g/dL
(13.0-18.0)
Hct 35.7 L %
(39.0-52.0)
MCHC 31.7 L g/dL
(33.0-37.0)
RDW 17.5 H %
(11.5-14.5)
Absolute Lymphs (auto) 1.0 L 10^3/uL
(1.2-3.4)
Absolute Monos (auto) 0.7 H 10^3/uL
(0.1-0.6)
Lymphocytes % 14.7 L %
(20.5-51.1)
Monocytes % 10.5 H %
(1.7-9.3)
BUN 22 H mg/dl
(9-20)
12/05/24 05:53
12/05/24 05:53
Vital Signs
Initial and Last Documented VS:
Initial Vital Signs
Temp Pulse Resp BP Pulse Ox
98.4 F 79 16 170/100 99
12/05/24 05:32 12/05/24 05:32 12/05/24 05:32 12/05/24 05:32 12/05/24 05:32
Last Documented Vital Signs
Temp Pulse Resp BP Pulse Ox
98.4 F 70 22 102/61 96
12/05/24 05:32 12/05/24 09:30 12/05/24 09:30 12/05/24 10:00 12/05/24 09:30
<Afshin Pollock MD, Resident - Last Filed: 12/05/24 14:26>
MDM/Problems Addressed
Differential Diagnosis Includes:
ACS
Valve complication (thrombosis/leak)
Medication side effect (midodrine)
Endocarditis
Heart failure
PE
Aortic dissection
MDM/Problems Addressed:
Mr. Snow is a 79-year-old male with history of Parkinson's disease and CAD with bovine aortic valve replacement and triple bypass on 10/04/2024 CT A/P 2X thoracentesis (last one 2 weeks ago and next CXR scheduled Wednesday) for left pleural effusion
at [facility] who presented via EMS with hypertension (SBP 190s), sweats, and indigestion/burping since 3 AM.
#Hypertension
#Sweats
#Indigestion
He follows with woodworking shop hand Dr. Grubbs at [facility] and started taking midodrine 2.5 mg twice daily on Wednesday to help with ongoing postop orthostatic hypotension that caused multiple falls. with BP log. Most likely etiology is medication
side effect, however given recent procedure, cannot rule out more serious differential as above without further workup.
- CBC and CMP WNL
- Follow-up blood cultures
- Troponin 0.015, then 0.018, proBNP 2210
- CXR showing moderate left pleural effusion with adjacent compressive atelectasis.
--We recommended to patient to be admitted for observation and thoracentesis, however he was persistent and wanting to go home and having everything done at [facility] with his woodworking shop hand.
#Urinary frequency
- UA unremarkable
#Parkinson's
Follows with Dr. Krishna at [facility].
- Continue Crexont 70-28o QID
- Continue rasagiline 1 mg daily
Chronic conditions affecting care: CAD and Neurological disorder
<Afshin Pollock MD, Resident - Last Filed: 12/05/24 14:26>
*Pulse Oximetry
SaO2: 98
Oxygen Mode of Delivery: Room air
Patient hypoxic: no
*Critical Care Note
Total Time (30-74mins, 75-104mins- exclusive of procedures): Not Applicable
ED Attending Note
<Afshin Pollock MD, Resident - Last Filed: 12/05/24 14:26>
-
Portions of this chart may have been created with voice recognition software.� Occasional wrong word or��sound alike� substitutions may have occurred due to the inherent limitations of voice recognition software.
<Abhishek Abbott, DO - Last Filed: 12/05/24 10:02>
ED Attending Note
Patient seen and examined by attending physician: Yes
I performed a history and physical exam of patient and discussed management with resident, I reviewed resident's note and agree with documented findings and plan of care.: Yes
ED Attending Note:
I reviewed and agree with history treatment plan by Afshin Pollock MD. My exam revealed 79-year-old male with decreased breath sounds at the left lower lung. Do not suspect pneumonia. Serial troponins negative. Patient stable for discharge and will
follow-up with his physician at [facility].
Discharge Plan
Departure
Patient Disposition: Home (Routine Discharge)
Date of Disposition: 12/05/24
Time of Disposition: 10:14
Patient with high blood pressure during this ER visit?: Yes
Condition: Fair
Discharge Problem:
Hypertension, Pleural effusion
Instructions: BLOOD PRESSURE
Prescriptions:
No Action
carbidopa-levodopa 25-100 mg Tablet Extended Release
1 tab PO HS
budesonide 3 mg Capsule,Delayed,Extend.Release
3 mg PO DAILY
rasagiline 1 mg Tablet
1 mg PO DAILY
melatonin 10 mg Tablet
10 mg PO HS PRN (Reason: sleep)
cyanocobalamin (vitamin B-12) 1,000 mcg capsule
1,000 mcg PO DAILY Qty: 30 0RF
multivitamin Tablet
1 tab PO DAILY Qty: 30 0RF
nifedipine 30 mg Tablet Extended Release
30 mg PO DAILY Qty: 30 0RF
meclizine 25 mg Tablet
25 mg PO Q8HPRN PRN (Reason: vertigo) Qty: 90 0RF
thiamine HCl (vitamin B1) 100 mg capsule
100 mg PO DAILY Qty: 30 0RF
Referrals:
Geoffrey Briones MD [Family Provider]
Juarez Grubbs MD [Non-Admitting Privileges, Cardiology] - Call in 1-3 days for appt
Referral Note: Follow-up with your woodworking shop hand about medication adjustment for your blood pressure. Also follow back getting a thoracentesis for your known left pleural effusion.
Interventions
Interventions:
*Risk Screen - Suicide Last Done: 12/05/24 05:32
*General Assessment Last Done: 12/05/24 05:32
*Neglect/Abuse Screening Last Done: 12/05/24 05:32
*ED- Fall Risk Assessment Last Done: 12/05/24 05:32
*ED COVID-19 Vaccine History Last Done: 12/05/24 05:32
*Nursing Disposition Last Done: 12/05/24 10:00
ED- Cardiac Assessment Last Done: 12/05/24 06:53
ED- Pulmonary Assessment Last Done: 12/05/24 06:53
Discharge Date and Time
Discharge Date/Time: 12/05/24 10:00
Print Language: BELARUSIAN
[2024-12-05 07:00] VITALS: BP 155/90
[2024-12-05 08:26] VITALS: BP 186/96
[2024-12-05 09:01] VITALS: BP 149/77
[2024-12-05 09:43] LABS: Troponin I 0.018 ng/ml
[2024-12-05 10:00] VITALS: BP 102/61
== END 2024-12-05 10:00 | disposition home or self-care (01) ==
LOC: EMR 05:24
PROVIDERS: Emergency Medicine; EMERGENCY PHYSICIAN Emergency Medicine; FAMILY PHYSICIAN Internal Medicine
DX: I10 Essential (primary) hypertension (principal); J90 Pleural effusion, not elsewhere classified; I25.10 Atherosclerotic heart disease of native coronary artery without angina pectoris; G20.A1 Parkinson's disease without dyskinesia, without mention of fluctuations; Z95.3 Presence of xenogenic heart valve; Z79.899 Other long term (current) drug therapy
CPT/HCPCS: 99285; 71046; 80053; 81003; 83880; 84484; 85025; 87040; 93005

== ENCOUNTER 2025-01-15 22:29 | Inpatient (IN) | payer MEDICARE, BC, SELFPAY ==
[2025-01-15] MEDS: VALIUM INJECTION 2 MG IV (17:39)
[2025-01-15] MEDS: KEPPRA 1500 MG IV (18:03)
[2025-01-15] MEDS: VALIUM INJECTION 5 MG IV (18:08)
--- NOTE | 2025-01-15 18:09 | ED.GENMED ---
History of Present Illness
General
Chief Complaint: Change in Mental Status
Time Seen by Provider: 01/15/25 17:34
History of Present Illness
History of Present Illness:
79-year-old male with history of Parkinson's, CAD, history of aortic valve replacement and triple bypass in September 2024, hypertension presenting for concern of seizure. Patient arrives by medics. Per medics, had called for concern of seizure
with no prior history. On their arrival, patient was postictal, agitated. And route to the hospital, he had suspicion for another seizure, lasting less than 30 seconds. No medications were administered. Patient arrives in suspected postictal
state on arrival. No additional history obtained at this time.
Past History
Past History
ED Past Medical History: CAD (S/p triple bypass and AVR 09/2024) and Other (Parkinsons, history of Crohn's (apparently resolved))
ED Past Surgical History: Cardiac (AVR and triple bypass on 10/04/2024) and Orthopedic (Back surgery and hernia repair)
Social History
Tobacco: Non-smoker
Alcohol: None
Drug: None
Personal:
Living: with family
Phy Exam
Physical Exam
Physical Exam:
General: Well-appearing, no clinical signs of dehydration, nontoxic and in no acute distress
HEENT: protecting airway, pupils equal and reactive
Neck: appears supple
CV: Normal heart rate, regular rhythm
Resp: No accessory muscle use, no increased work of breathing, lungs clear to auscultation bilaterally
Abd: No distention
Extremities: No deformities, no swelling
Neuro: Somnolent, suspected postictal state
: deferred
Rectal: deferred
Psych: Normal affect
Skin: Intact
Course
Orders/Labs/Results
Orders:
Orders
01/15/25 17:34
CT Head W/o Iv Contrast Urgent
Comment:
Reason For Exam: seizure
Levetiracetam Injectable [Keppra] 1,500 mg IV NOW STA
01/15/25 17:35
Electrocardiogram (*1) Stat
Reason for Study: Other
Other Reason for Exam: neuro symptoms
EKG- Treatment ONCE
01/15/25 17:36
diazePAM [Valium Injection] 2 mg IV NOW STA
01/15/25 18:07
diazePAM [Valium Injection] 5 mg IV NOW STA
01/15/25 18:15
Complete Blood Count/With Diff Urgent
Comprehensive Metabolic Panel Urgent
PTT Urgent
Prothrombin Time Urgent
Serum Osmolality Urgent
Comment: ADD ON
Troponin I Urgent
01/15/25 18:16
Lactate Level [Lactic Acid] Urgent
01/15/25 18:30
Urinalysis Reflex To Culture Urgent
Date Specimen was Collected: 01/15/25
Time Specimen was Collected: 18:29
Urine Microscopic Reflex Cult Urgent
01/15/25 18:42
Haloperidol Lactate [Haldol] 1 mg IV NOW STA
01/15/25 18:49
Add On- LAB Urgent
Tests Added?: serum osmolality
01/15/25 18:50
CR Chest Portable - 1 View Urgent
Comment:
Reason For Exam: AMS
Reason Study Needs to be Portable: Unable to Transport
01/15/25 18:51
EKG- Treatment ONCE
01/15/25 19:04
0.9% Sodium Chloride 1000 ml [Nss] 1,000 ml IV BOLUS
01/15/25 19:29
Haloperidol Lactate [Haldol] 1 mg IV NOW STA
01/15/25 20:24
Haloperidol Lactate [Haldol] 1 mg IV NOW STA
01/15/25 22:00
Admit/Transfer Patient As Directed
Co-Sign Provider:
Level of Care: Inpatient admission
Assign to:: Telemetry
Physician / Group: Kareem
Diagnosis: Urinary Retention, Questionable Seizure, Parkinson's Disease
Reason for Telemetry: Arrhythmia
Date to Stop Telemetry: 01/18/25
Time to Stop Telemetry: 11:00
Reason for Hospitalization: Urinary Retention, Questionable Seizure, Parkinson's Disease
Expected length of stay greater than two midnights?: Yes
ELOS- Estimated Length of Stay in days: 3
I certify the patient meets the requirements for IP care: Yes
PRN Pain Medication Management As Directed
May give lesser potent ordered pain med per pt: Yes
preference::
Protocol:: Medication orders for pain may be administered in a
manner that supports deferring to patient preference
when the pt is:
- Requesting an ordered lesser potent pain medication.
Least to most potent pain medications are defined
as: acetaminophen < NSAID < tramadol < opioids
(morphine, oxycodone, hydromorphone).
- Requesting a lesser dose of the same medication IF
ORDERED.
- Requesting a less intrusive route of administration
if both routes are prescribed by the provider (PO <
IV).
01/15/25 22:02
Code Status As Directed
Resuscitation Status: Do not resuscitate
Reached after discussion with pt or family/Healthcare POA: Yes
01/15/25 22:04
DNR Bracelet Application ONCE
01/16/25 00:40
0.9% Sodium Chloride 1000 ml [Nss] 1,000 ml IV 80 mls/hr
Acetaminophen [Tylenol] 650 mg PO Q4HPRN PRN
diazePAM [Valium Injection] 2 mg IV Q6HPRN PRN
01/16/25 00:40
NEUROLOGY CONSULT Routine
Consulting Provider: Waqar Cochran
Was physician already notified: Yes
Reason for consult: Urinary Retention, Questionable Seizure, Parkinson's Disease
Activity As Directed
Activity Level: Ambulate
With Assistance
EKG with chest pain [ECG as needed] As Directed
ECG as needed for:: Chest Pain
Orantes Catheter [Catheter- Indwelling] As Directed
Reason for insertion: Acute Retention
Discontinue Date/Time: 01/18/25 0600
I/O [Intake/ Output] As Directed
Frequency: Per unit guidelines
Pneumatic Compression Sleeves As Directed
Type: Knee high
Precautions As Directed
Type of Precautions: Seizure
Vital Signs As Directed
Frequency: Per unit guidelines
Oxygen Therapy [O2 Therapy] [RESP] Routine
Titrate/Wean O2 to maintain O2 sat greater than (%): 94
PT Consult [Pt Eval And Treat] Routine
Activity Level: Ambulate
With Assistance
Speech Therapy Eval & Treat Routine
DX Deep Vein Thrombosis Video Routine
01/16/25 00:53
TSH Reflex To Free T4 Routine
Troponin I Q6H
01/16/25 02:31
Basic Metabolic Panel IN AM
Complete Blood Count/No Diff IN AM
Magnesium IN AM
Phosphorus IN AM
01/16/25 06:00
EKG [Electrocardiogram (*1)] IN AM
Reason for Study: Chest Pain
NPO
Allow oral meds: Yes
Allow clear liquids: Sips of Clears
01/16/25 06:31
Troponin I Q6H
01/16/25 08:00
Aspirin Low Dose EC [Aspir Low (Enteric Coated)] 81 mg PO DAILY
Carbidopa/Levodopa [Sinemet 25-100] 2 tablet PO TID
Rasagiline Mesylate 1 mg PO DAILY
Tamsulosin [Flomax] 0.4 mg PO DAILY
01/16/25 13:27
Troponin I Q6H
01/18/25 11:00
DC Protocol for Telemetry ONCE
Abnormal Lab Results
1001/15/25 01/15/25
18:15 18:16 18:30
RBC 4.26 L 10^6/uL
(4.70-6.10)
Hgb 11.7 L g/dL
(13.0-18.0)
Hct 36.0 L %
(39.0-52.0)
MCHC 32.5 L g/dL
(33.0-37.0)
RDW 16.8 H %
(11.5-14.5)
Absolute Lymphs (auto) 0.7 L 10^3/uL
(1.2-3.4)
Absolute Monos (auto) 0.7 H 10^3/uL
(0.1-0.6)
Neutrophils % 76.0 H %
(42.2-75.2)
Lymphocytes % 9.9 L %
(20.5-51.1)
Monocytes % 10.6 H %
(1.7-9.3)
PT 14.7 H Sec
(11.4-14.6)
Sodium 125 L mmol/L
(135-145)
Chloride 93 L mmol/L
(98-107)
Creatinine 0.6 L mg/dL
(0.7-1.3)
Glucose 120 H mg/dl
(70-99)
Serum Osmolality 274 L mOsm/kg
(275-300)
Lactic Acid 4.0 H* mmol/L
(0.7-2.0)
Urine Ketones 2+ A
(Negative)
Ur Occult Blood Reflex 1+ A
(Negative)
Urine Bacteria (Reflex) Few A
(Negative)
Urine Albumin (Reflex) 2+ A
(Neg - Trace)
01/15/25 18:15
01/15/25 18:15
Vital Signs
Initial and Last Documented VS:
Initial Vital Signs
Pulse Resp Pulse Ox
82 18 94
01/15/25 17:32 01/15/25 17:32 01/15/25 17:32
Last Documented Vital Signs
Temp Pulse Resp BP Pulse Ox
99.2 F 79 17 141/78 100
01/16/25 11:49 01/16/25 12:00 01/16/25 12:00 01/16/25 12:00 01/16/25 12:33
MDM/Problems Addressed
MDM/Problems Addressed:
79-year-old male with history of Parkinson's, CAD, history of aortic valve replacement and triple bypass in September 2024, hypertension presenting for concern of seizure.
On exam, patient appears to be postictal. Per medics, had a witnessed seizure prior to arrival by medics, which stopped prior to arrival to the ED. In the ED, noted to be incontinent of both urine and feces. No prior history of seizure per
medical records. Unclear etiology of seizure, however with possibly 2 preceeding, plan for CT brain imaging stat. Will also plan for laboratory analysis and EKG. arrived shortly after patient arrived. She notes over the weekend patient has
been more lethargic, noticed changes in his speech. 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 No report of any
recent fever. Again no history of seizure. After 's arrival and return from CT, patient is shaking, agitated. She does note that some of the shaking is consistent with his Parkinson's. Plan for Keppra and diazepam
19:30 -CT without acute intracranial abnormality. Labs do show hyponatremia of 125. In the setting of seizure, altered mental status and hyponatremia, did nephrology who suspect that it could be secondary to seizure itself, check serum osmolality.
Patient does not appear to be volume overloaded, starting on a liter of IV fluids for suspected component of dehydration. Patient has been difficult to control from an agitation standpoint, requiring multiple doses of benzos, followed by Haldol.
Continue to suspect new onset seizure, unclear etiology, vs decompensated Parkinsons vs encephalpathy. Will try cerebell once more comfortable.
19:50 - Discussed with neurology, recommend lacosamide if continued seizure activity. Otherwise plan for admission for altered mental status and suspected new seizure just
*Pulse Oximetry
SaO2: 94
Oxygen Mode of Delivery: Room air
Patient hypoxic: no
*Critical Care Note
Total Time (30-74mins, 75-104mins- exclusive of procedures): 40
comment:
The high probability of a clinically significant, sudden or life threatening deterioration of the neurologic system(s) required my full and direct attention, intervention and personal management. The aggregate critical care time was 40 minutes. This
time is in addition to time spent performing reported procedures but includes the following:
[x] Data Review and interpretation
[x] Patient assessment and monitoring of vital signs
[x] Documentation
[x] Medication orders and management
ED Attending Note
-
Portions of this chart may have been created with voice recognition software.� Occasional wrong word or��sound alike� substitutions may have occurred due to the inherent limitations of voice recognition software.
Discharge Plan
Departure
Patient Disposition: Admit
Date of Disposition: 01/15/25
Time of Disposition: 20:26
Presentation/result/management discussed w/ accepting MD/DO: Hospitalist
Patient with high blood pressure during this ER visit?: Yes
Condition: Critical
Discharge Problem:
Seizure, Altered mental status, Encephalopathy
Interventions
Interventions:
*Risk Screen - Suicide Last Done: 01/15/25 17:35
*General Assessment Last Done: 01/15/25 17:35
*Neglect/Abuse Screening Last Done: 01/15/25 17:35
*ED- Fall Risk Assessment Last Done: 01/15/25 17:35
*ED COVID-19 Vaccine History Last Done: 01/15/25 21:25
*ED Influenza Vaccine History Last Done: 01/15/25 21:25
*Nursing Disposition Last Done: 01/16/25 00:46
ED- Neurological Assessment Last Done: 01/15/25 17:50
ED- Cardiac Assessment Last Done: 01/15/25 17:35
ED Swallowing Screen Last Done: 01/15/25 17:35
Discharge Date and Time
Discharge Date/Time: 01/16/25 00:46
[2025-01-15 18:22] LABS: Hematocrit 36.0 % (39.0-52.0); Hemoglobin 11.7 g/dL (13.0-18.0); Mean Corp Hgb Conc. 32.5 g/dL (33.0-37.0); Mean Corpuscular Volume 84.5 fL (80.0-94.0); Nucleated Red Blood Cells % 0 % (-); Platelet Count 222 10^3/uL (130-400); Red Cell Dist. Width 16.8 % (11.5-14.5)
[2025-01-15 18:33] LABS: APTT 30.2 Sec (23.4-35.0); INR 1.12; PT 14.7 Sec (11.4-14.6)
[2025-01-15 18:34] VITALS: BP 168/71
[2025-01-15 18:35] LABS: ALT (SGPT) < 10 U/L (0-50); AST (SGOT) 23 U/L (17-59); Albumin 4.0 g/dl (3.5-5.0); Alkaline Phosphatase 65 U/L (38-126); Blood Urea Nitrogen 19 mg/dl (9-20); Calcium 8.6 mg/dl (8.4-10.2); Carbon Dioxide 24 mmol/L (22-30); Chloride 93 mmol/L (98-107); Estimated Creatinine Clearance 81 ml/min; Glucose 120 mg/dl (70-99); Potassium 4.5 mmol/L (3.5-5.1); Sodium 125 mmol/L (135-145); Total Protein 7.2 g/dl (6.3-8.2); eGFR > 60.00
[2025-01-15 18:47] LABS: Troponin I 0.022 ng/ml
[2025-01-15] MEDS: HALDOL 1 MG IV ×3 (18:49→20:50)
[2025-01-15 19:00] LABS: Urine Character Clear (Clear)
[2025-01-15] MEDS: NSS 1000 IV (19:08)
[2025-01-15 19:26] LABS: Urine Red Blood Cell 0-2 /HPF (0-2)
[2025-01-15 21:23] VITALS: BP 183/90
[2025-01-15 21:30] VITALS: BP 186/93
[2025-01-15 22:30] VITALS: BP 140/85
[2025-01-15 23:00] VITALS: BP 169/91
[2025-01-15 23:30] VITALS: BP 146/74
--- NOTE | 2025-01-15 23:45 | HPS.HSE ---
Family Physician
-
Family Physician: Geoffrey Briones
Chief Complaint
-
Shaking, Pain
History of Present Illness
Patient is a 79y M with PMH significant for Parkinson's disease who presents to ED for evaluation after shaking episode / suspected seizure at home this evening. History obtained from family at the bedside.
Patient has long-standing Parkinson's disease which has been well-controlled for some time. At baseline, he continues to work and is functional with assist devices for ambulation.
Patient underwent CABG x 2 and Bio AVR at [place] in September of this year. Following that surgery, he began to have increased episodes of bradykinesia / 'freezing' and general functional decline.
Family notes that his medications have been changed a number of times in an attempt to control his symptoms.
He was started on Crexont about 3-4 weeks ago. He was started on droxidopa for orthostatic hypotension. This initially caused marked hypertension (for which he was seen here in 11/2024) and was held for a time. It was restarted only 2-3 days ago.
Despite med changes he has continued to decline. This past week in particular he has been extremely fatigued and had difficulty with mobility. Two days ago he had visual hallucinations (seeing people outside his home).
He has continued to have episodes of essential paralysis due to bradykinesia / rigidity.
This evening helped him into bed and he started to scream out and grimace as if in pain. He was shaking all over - similar to his Parkinson's tremors but more severe. He was 'ashen' appearing and his eyes 'rolled back'. He was not
incontinent of bowel or bladder. 911 was called and patient was brought to the ED for further evaluation.
In the ED, patient is noted to be agitated and restless.
notes that he has urinary frequency and nocturia. She states that he sleeps poorly for being up to urinate all night. He urinates in a urinal at night and indicates minimal amount (approx 50cc) with each void.
Medical History
Past Medical History
Past Medical History: Reports Other
Additional Past Medical History:
Parkinson's Disease
ASCVD
Aortic Stenosis
Orthostatic Hypotension
Past Surgical History: Reports Other
Additional Past Surgical History:
CABG x 2 / Bio AVR (10/04/24 - [facility])
Lumbar Laminectomy
Hernia Repair
Cataracts
Social History
Tobacco: Non-smoker
Alcohol: Occasional
Drug: None
Personal:
Living: With Family
Family History
Family History: Not pertinent
Allergies / Home Medications
Allergies reflects when Allergies were last updated in [employer].
Home Medications with original date entered in [employer]
Allergy/Medication List:
Allergies
Allergy/AdvReac Type Severity Reaction Status Date / Time
Penicillins Allergy Unknown Verified 12/05/24 05:37
Home Medications
rasagiline 1 mg tablet 1 mg PO DAILY Parkinson's 04/08/24
aspirin 81 mg tablet 81 mg PO DAILY 01/15/25
carbidopa 70 mg-levodopa ER 280 mg capsule,immed and extended release (Crexont) 2 cap PO TID 01/15/25
droxidopa 100 mg capsule 100 mg PO DAILY 01/15/25
Review of Systems
-
History Source: Patient and Family
A 12 point ROS was completed and negative except as noted: Yes
Constitutional: Reports Fatigue and Sleep Disturbance; Denies Fever
Respiratory: Denies Cough or Trouble Breathing
Cardiac: Denies Chest Pain or Palpitations
Abdomen/GI: Reports Abdominal Pain; Denies Nausea, Vomiting or Diarrhea
: Reports Frequency; Denies Dysuria
Musculoskeletal: Denies Joint Pain or Edema
Neurological: Reports Weakness and Other (Rigidity); Denies Dizzy or Headache
Psych: Reports Audio or Visual Hallucinations and Other (Agitation); Denies Depression or Anxiety
Physical Exam
Vital Signs
Vital Signs
Temp Pulse Resp BP Pulse Ox
98.6 F 79 17 140/85 95
01/15/25 18:35 01/15/25 22:45 01/15/25 22:45 01/15/25 22:30 01/15/25 18:35
Physical Exam
General: Other (79y M restless / agitated / in evident distress.)
HEENT: Moist mucous membranes and PERRLA
Respiratory: Clear; No Wheezes, Rales or Rhonchi
Cardiac: S1/S2; No Murmur
GI: Soft and Normal Bowel Sounds
Genito-urinary: Other (Dome of bladder palpable on exam / tender. Orantes placed in the ED for > 1000cc of immediate urine return.)
Musculoskeletal: No Clubbing, No Cyanosis and No Edema
Neuro: Awake and Other (Patiet answers questions appropriately when asked and follows some commands. In general seems uncomfortably / in distress > agitated / delirious.)
Laboratory Results
-
01/15/25 18:15
01/15/25 18:15
Laboratory Results
PT 14.7 Sec (11.4-14.6) H 01/15/25 18:15
INR 1.12 01/15/25 18:15
APTT 30.2 Sec (23.4-35.0) 01/15/25 18:15
Lactic Acid 4.0 mmol/L (0.7-2.0) H* 01/15/25 18:16
Total Bilirubin 0.9 mg/dl (0.2-1.3) 01/15/25 18:15
AST 23 U/L (17-59) 01/15/25 18:15
ALT < 10 U/L (0-50) 01/15/25 18:15
Alkaline Phosphatase 65 U/L (38-126) 01/15/25 18:15
Troponin I 0.022 ng/ml 01/15/25 18:15
Impression/Plan
-
A/P: Patient is a 79y M with PMH significant for Parkinson's disease with recent functional decline s/p cardiac surgery in September who presents to ED for evaluation of suspected seizure activity at home this evening.
Shaking / ? Seizure
- Admit for further evaluation and treatment.
- Description of symptoms, history, etc - unclear if seizure occurred.
- Elevated lactate level, hyponatremia, etc consistent with possible seizure - follow for rapid improvement.
- Other history seems more consistent with worsening Parkinson's, urinary retention and pain / agitation.
- Loaded with Keppra in the ED.
- He is rigid / tremulous in the ED, but no evident seizure activity.
- CT head with no acute abnormality.
- Monitor overnight. PRN Valium if seizures noted.
- Neurology evaluation for additional recommendations.
Acute Urinary Retention
- Likely present for some time based on history of frequency / small volume urination / etc.
- Orantes placed in the ED - follow I/Os.
- Begin tamsulosin for now.
- TOV prior to discharge.
- ? urinary retention secondary to recent med changes.
- ? to what extent this issue has been present and contributing to his general decline / symptoms since surgery?
Parkinson's Disease
- Uncontrolled. Recent episodes of severe bradykinesia / rigidity / immobility.
- Change Crexont to regular Sinemet dose for now.
- Neurology evaluation as noted above for additional recommendations.
- Tremulousness / rigidity making it somewhat difficult to determine +/- seizure activity.
Hyponatremia
- Na = 125. Follow for improvement.
- Seems unlikely that this degree of hyponatremia contributed to seizure activity.
- Follow for improvement. Check urine studies.
ASCVD
Aortic Stenosis
- Stable. s/p CABG x 2 and BioAVR in September at [facility].
- Continue ASA daily.
- EKG without evident ischemia.
- Follow serial troponin.
- Doubt ACS. Suspect pain syndrome was due to urinary retention as noted above.
DVT Prophylaxis: SCDs
Code Status: DNR
[2025-01-16] VITALS (13 sets, daily range): BP systolic 121–172; BP diastolic 63–99; BMI 17.5
[2025-01-16] MEDS: NSS 1000 IV (00:55)
[2025-01-16] MEDS: OFIRMEV 100 IV (01:36)
[2025-01-16 01:43] LABS: Troponin I 0.058 ng/ml
[2025-01-16] MEDS: STERILE WATER FOR INJECTION 10 ML IV (02:17)
[2025-01-16] MEDS: ROCEPHIN 1000 MG IV (02:17)
[2025-01-16 02:51] LABS: Hematocrit 35.7 % (39.0-52.0); Hemoglobin 11.6 g/dL (13.0-18.0); Mean Corp Hgb Conc. 32.5 g/dL (33.0-37.0); Mean Corpuscular Volume 85.0 fL (80.0-94.0); Platelet Count 217 10^3/uL (130-400); Red Cell Dist. Width 16.9 % (11.5-14.5)
[2025-01-16 03:01] LABS: COVID-19 Antigen Negative (Negative)
--- NOTE | 2025-01-16 03:03 | PTCARENOTE ---
Report called by Ruth ANDERSON. Pt transported via stretcher. Received pt s/p multiple seizure/psych medications, unable to obtain baseline mentation. Pt responds to tactile stimulation. Pt has notable tremors, hx Parkinsons. NSR on the monitor.
Received pt on 4L NC. Pt weaned to room air. SpO2 98% on room air. Orantes intact draining yellow urine. Pt appeared flushed and warm to the touch. Rectal temperature 101.9. DANICA Manrique made aware, orders for Offirmev administered see MAY. Pt has
multiple scattered wounds, cleansed and dressed, see documentation. Wound care consult placed. IV abx administered. IVF at 80ml/hr. Pt tolerating repositioning.
[2025-01-16 03:22] LABS: Blood Urea Nitrogen 14 mg/dl (9-20); Calcium 8.2 mg/dl (8.4-10.2); Carbon Dioxide 21 mmol/L (22-30); Chloride 97 mmol/L (98-107); Estimated Creatinine Clearance 77 ml/min; Glucose 98 mg/dl (70-99); Magnesium 1.8 mg/dl (1.6-2.3); Potassium 3.9 mmol/L (3.5-5.1); Sodium 123 mmol/L (135-145); eGFR > 60.00
[2025-01-16 07:12] LABS: Troponin I 0.044 ng/ml
--- NOTE | 2025-01-16 08:28 | W.PN.HOSP.TC ---
Today's Communication/Plan
-
Plan for LP, MRI
Start rotigotine patch instead of carbidopa per neuro
3% saline per nephro
recheck BMP
ID consult, started empiric acyclovir
Assessment / Plan
Assessment / Plan
Patient is a 79y M with PMH significant for Parkinson's disease who presents to ED for evaluation after shaking episode / suspected seizure at home this evening. At baseline, he continues to work and is functional with assist devices for
ambulation.
Patient underwent CABG x 2 and bovine AVR at [facility] in September of this year. Following that surgery, he began to have increased episodes of bradykinesia / 'freezing' and general functional decline. Family notes that his medications have been
changed a number of times in an attempt to control his symptoms. In the ED, patient is noted to be agitated and restless and had some shaking episodes, was given Keppra and diazepam. Head CT negative for acute intracranial abnormalities. Labs
showed hyponatremia, patient was given IV fluids.
#Altered mental status
#Shaking
DDx includes seizure, encephalitis, meningitis, stroke
- Elevated lactate level, hyponatremia, etc consistent with possible seizure
- Other history seems more consistent with worsening Parkinson's, urinary retention and pain / agitation.
- CT head with no acute abnormality.
- Neurology consult appreciate recs
-LP
-DC antiseizure medications, if restarted use lacosamide instead of levetiracetam
-Thiamine and B12
-Rotigotine patch 4 mg daily instead of carbo levodopa
-Restart oral meds when possible
- EEG without seizures
- Brain MRI pending
- LP pending
- Given fever concerns for encephalitis meningitis
- ID consult
- DC ceftriaxone, begin empiric acyclovir
#Parkinson's Disease
Outpatient neurologist contacted at request of family
Neurologist okay with LP
Evaluated by DIGITAL PHOTO PRINTER, patient unable to swallow, strict n.p.o.
- Uncontrolled. Recent episodes of severe bradykinesia / rigidity / immobility.
- Change Crexont to Sinemet 4 times a day
-Rotigotine patch 4 mg daily instead of carbo levodopa
#Hyponatremia
- Na initially 125 downtrending to 123.
- Check urine studies indicating SIADH
- Fluid restriction
- 3% saline, sodium improved to 134
- Nephrology consult
- Maintain fluid restriction once p.o. at 1200 cc/day
- Repeat electrolytes after hypertonic saline infusion completed
- Follow-up TSH 1.91 Cortisol 21
#Acute Urinary Retention
- Likely present for some time based on history of frequency / small volume urination / etc.
- Orantes placed
- tamsulosin
- TOV prior to discharge
#ASCVD
#Aortic Stenosis
#Elevated troponin
- Stable. s/p CABG x 2 and BioAVR in September at [facility].
- Continue ASA daily.
- EKG without evident ischemia.
- serial troponin down trended to within normal limits
- Suspect demand ischemia, not ACS
DVT Prophylaxis: SCDs
Code Status: DNR
Anticipated Discharge: 24 - 48 hours
Subjective/Interval History
-
Saw patient at bedside. Patient was undergoing EEG, and was unresponsive to voice commands and tactile stimulation. Patient was shaking the entirety of the time and radiologic technologist mammogram reported that his shaking and agitation has increased since the beginning
of the exam about an hour prior. No family members at bedside will call and update. Date of Service: January 16, 2025
Objective Data
-
Labs:
Laboratory Results
01/16/25
02:31
WBC 14.2 H
Hgb 11.6 L
Hct 35.7 L
Plt Count 217
Sodium 123 L
Potassium 3.9
Chloride 97 L
Carbon Dioxide 21 L
BUN 14
Creatinine 0.6 L
Glucose 98
Calcium 8.2 L
Vital Signs:
Vital Signs
Temp Pulse Resp BP Pulse Ox
99.6 F 70 14 150/78 97
01/16/25 07:32 01/16/25 06:00 01/16/25 06:00 01/16/25 06:00 01/16/25 06:00
I&O
01/15/25 01/16/25 01/17/25
06:59 06:59 06:59
Intake Total 900 / 900
Output Total 1100 / 1100
Balance -200 / -200
Review of Systems
-
Unable to obtain full review of systems at this time due to: Acuity
Physical Exam
-
General: Appears in Distress, Appears Chronically Ill and Other (Somnolent, unresponsive to voice commands and tactile stimulation)
HEENT: Normocephalic and Atraumatic
Respiratory: Clear to Auscultation; Negative Wheezes or Crackles
Cardiac: Regular Rhythm and S1/S2; Negative Murmur
GI: Soft, Nontender, Nondistended and Normal Bowel Sounds
Musculoskeletal: No Clubbing and No Edema
Skin: Warm, Dry and Lesions (Multiple senile purpura)
Neuro: Tremors; Negative Awake, Alert or Oriented
[2025-01-16] MEDS: ASPIR LOW (ENTERIC COATED) PO (08:36)
[2025-01-16] MEDS: VITAMIN B-12 PO (08:37)
[2025-01-16] MEDS: RASAGILINE MESYLATE PO (08:37)
[2025-01-16] MEDS: VITAMIN B1 PO (08:37)
[2025-01-16] MEDS: FLOMAX PO (08:37)
--- NOTE | 2025-01-16 08:55 | PTOTSP ---
Speech Language Pathology
Pt seen for clinical bedside swallow evaluation. P.O. trials of ice chips and thin liquids attempted. Pt with no response to first placement of ice chips to lips. With second, lingual and labial movements noted in response. Trialed 3ccs of thin
water via pipetted straw. Pt closed lips around straw to accept liquid. After this, absent oral manipulation noted with need for oral suctioning to remove bolus. Further P.O. trials deferred.
Recommend:
(1) Strict NPO
(2) Non-oral meds
(3) Oral care 4x/day with suctioning as needed
(4) Not appropriate for Aspiration Risk Hydration Protocol (ARHP) at this time
(5) [employer] to continue to follow
--- NOTE | 2025-01-16 08:55 | PTCARENOTE ---
Patient unable to follow commands at this time, eye closed. Only said simple words during morning care, oral care provided, Mouth is dry, not following commands to lick lips, morning medications held due to aspiration risk. Discussed with speech
therapy. Patient is NPO, HOB elevated due to aspiration risk, suction set up in room.
--- NOTE | 2025-01-16 09:01 | W.PN.UPDATE ---
Update Note
Progress Note Update
Seen and examined the patient . Agree with plan set fort by resident. See changes in my documentation.
79-year-old admitted with shaking episode and Mental status change. Sudden since yesterday patient has been having mild hallucination and tiredness for the past 1 week. No fever reported at home however was found to be febrile in the ER.
noticed that he was shaking all over similar to his Parkinson's disease but was very severe. He will also looking as she and his eyes rolled back. She called the ambulance to bring him in. His sleep has been disturbed for the past few days
Patient's stated that he had bypass surgery in September and ever since then he has not been well. He has been having these freezing episodes from his Parkinson disease. His Sinemet was changed to Crexont. Prior to cardiac surgery droxidopa was
discontinued and it was recently started as he had blood pressure fluctuations.
Patient is still functional and able to ambulate with assistance of a walker.
Head CT-severe white matter leukoaraiosis in the frontal and parietal lobes. Diffuse cerebral and cerebellar volume loss
Chest x-ray-small left pleural effusion decreased since 12/05/2024. Multiple bands of subsegmental atelectasis. Mild interstitial cardiogenic pulmonary edema. Mild cardiomegaly. Previous CABG and AVR
Obtunded, restless,
Neck stiffness present.
CVS S1 S2 normal
Chest CTA
Abd soft NT
CVS- MIRANDA, Moving all extremities, rigidity , Neck stiffness
# Episode of shaking
Possibly seizure given exam
Patient was started on Keppra in the ER, Wait for Neuro to see if needs to be continued.
CT without any acute changes
MRI brain
Neurology consulted.
Seizure precautions
# Mental status change and fever
Blood cultures have been ordered
Has meningeal signs ( But not entirely sure if from PD stiffness)
Awaiting EEG results to see if there are any changes consistent with encephalitis
Proceed with MRI and LP
Contacted IR
Labs ordered.
Discussed with infectious disease- who will see patient soon and start antimicrobials accordingly therefore I will hold off on ordering.
# Acute Urinary Retention
Tamsulosin started
Orantes placed
# Parkinson disease with autonomic dysfunction
Patient also has worsening Parkinson disease for some time now especially
Recent episodes of bradycardia, rigidity, immobility
On as outpatient 2 tablets 3 times daily-continue
Also on rasagiline 1 mg daily-continue
Neurology to evaluate
# Hyponatremia-sodium 125 on admission went down to 123 after IVF
Serum osmolality is low ,urine osmolality noted.
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
No more normal saline, 3 % saline started
Normal cortisol level. TSH is normal
FR
We will continue to use 3% saline with serial BMPs
Correction 8 to 10 mEq in 24 hours
# Mildly elevated troponin-trending down. Likely from fever , improving.
# Aortic stenosis status post bioprosthetic arctic valve replacement at [facility] September 2024
# Coronary artery disease with history of CABG in September 2024.
# DVT prophylaxis-SCDs
# DNR
Detailed discussion with the patient's multiple family members at bedside , son, daughter, grandchildren. They had a lot of questions all were answered at the best of my capability. They wanted me to communicate with patient's neurologist
prior to agreeing for LP. I spoke to patient's outpatient neurologist . He stated that the patient's sodium was 127 on December 28 from outpatient labs at [facility].. He agreed to LP.
Case discussed with nephrology.
Discussed with interventional radiology
Discussed with nursing at bedside
Dr. Palacio will contact Pt's PCP Dr. Gene Garduno
Time spent more than 60 minutes
Part of this note was created using voice recognition system. Occasional wrong word or��sound alike� substitutions may have inadvertently occurred due to the inherent limitations of voice recognition software. If noted kindly bring it to my
attention for correction.
[2025-01-16 09:18] LABS: Cortisol, Random 21.0 ug/dl
[2025-01-16] MEDS: SODIUM CHLORIDE 3% 250 IV (11:11)
--- NOTE | 2025-01-16 12:43 | CON.ID ---
Consultation
-
Date/Time Consultation Requested: 01/16/2025 1113
Date/Time Consultation Performed: 01/16/2025 1215
Requesting Provider: Dr. Kingsley
Performing Provider: Dr. Doty
Reason for Consultation: Encephalopathy
Chief Complaint / Past History
History of Present Illness
Ruben Snow is a 79-year-old man with a significant past medical history of Parkinson's disease being evaluated at the request of Dr. Kingsley in regards to encephalopathy and reported seizure activity. History is obtained from chart review, along
with patient interview. Additional history was obtained from the patient's and son who are present at the bedside.
Patient has history of CAD, and underwent CABG and AVR replacement on 10/04/2024. Subsequent to that, the family reports that he has been trying to gain back strength, but he has had multiple episodes of 'Parkinson freeze up' since surgery. He has
been followed by Neurology for this.
The family reports that last week overall his function began to decline, with noted marked decrease in overall energy. Several days ago he was noted to have some visual hallucinations and yesterday morning while working a coworker noted that he
seemed 'loopy'. Later in the afternoon, he developed a reported tonic-clonic seizure and EMS was called. On the way to the hospital he also reportedly had seizure activity. No history of fevers prior to admission, but early this morning he
developed a temperature to 101.9 degrees.
Family reports that his overall mental status has somewhat improved this a.m., although he still is having episodes of decreased responsiveness. Currently the patient denies any headache. He denies any neck pain or stiffness.
Past History
Additional Past Medical History:
Parkinson's disease
CAD
Chron's disease
Additional Past Surgical History:
AVR
CABG
Back surgery
Allergy History:
Penicillins Allergy (Verified 12/05/24 05:37)
Unknown
Medications Reviewed: Yes
Current Antibiotics:
Ceftriaxone 1 gm IV q.24 hours
Social History
Tobacco: Non-Smoker
Alcohol: Occasional
Drug: None
Personal:
Living: With Family
Employment: Employed
Family History
Family History: Not Pertinent
Review of Systems
Vital Signs
Temp Pulse Resp BP Pulse Ox
99.2 F 79 17 141/78 100
01/16/25 11:49 01/16/25 12:00 01/16/25 12:00 01/16/25 12:00 01/16/25 12:33
Physical Exam
Physical Exam
Constitutional: No Acute Distress, Comfortable, Chronically Ill and Non-toxic
Head: Normocephalic
Eyes: Pupils Equal, Pupils Round, No Conjunctival Hemorrhage and Sclera Anicteric
Oral: No Thrush and No Ulcers
Cardiovascular: Regular Rate and S1/S2; Negative S3/S4
Pulmonary: Clear and Non Labored; Negative Wheezes, Rales or Rhonchi
Gastrointestinal: Soft, Non Tender, Non Distended and Normal Bowel Sounds
Genito-Urinary: Orantes and Clear Urine; Negative Turbid Urine
Extremities: Negative Edema, Cyanosis or Erythema
Skin: Warm and Dry; Negative Rash or Jaundice
Neurological: Other (Somnolent but arousable.)
Psychological: Calm and Confused
Lab / Diagnostic Study Results
01/16/25 02:31
Abs Immat Gran (auto) 0.0 10^3/uL (0-0.05) 01/15/25 18:15
Absolute Neuts (auto) 5.1 10^3/uL (1.4-6.5) 01/15/25 18:15
Absolute Lymphs (auto) 0.7 10^3/uL (1.2-3.4) L 01/15/25 18:15
Absolute Monos (auto) 0.7 10^3/uL (0.1-0.6) H 01/15/25 18:15
Absolute Basos (auto) 0.1 10^3/uL (0-0.2) 01/15/25 18:15
Immature Gran % 0.3 % (0-0.5) 01/15/25 18:15
Neutrophils % 76.0 % (42.2-75.2) H 01/15/25 18:15
Lymphocytes % 9.9 % (20.5-51.1) L 01/15/25 18:15
Monocytes % 10.6 % (1.7-9.3) H 01/15/25 18:15
Eosinophils % 2.5 % (0-6) 01/15/25 18:15
Basophils % 0.7 % (0-2) 01/15/25 18:15
PT 14.7 Sec (11.4-14.6) H 01/15/25 18:15
INR 1.12 01/15/25 18:15
Lactic Acid Cancelled 01/16/25 06:40
Ur Squamous Epith Cells 3-5 /LPF (Few) 01/15/25 18:30
Microbiology Results
Micro:
01/16/25 02:31 Blood Culture - Pending
Blood/Venous
01/16/25 02:26 Influenza Types A & B ([facility]) - Final
Nasal Swab Negative for Influenza A & B, NAAT
Negative results must be combined with clinical observations
and patient history.
Nucleic Acid Amplification test (NAAT)performed on the
[employer] ID NOW platform.
01/16/25 02:31 Blood Culture - Pending
Blood/Venous
01/16/25 01:42 MRSA Screen - Pending
Nose
Imaging:
01/15/2025 CXR (portable): small left pleural effusion. Multiple bands of subsegmental atelectasis and scarring. Mild interstitial cardiogenic pulmonary edema. Previous CABG surgery and aortic valve replacement noted. Please see full dictation
for additional detail.
01/15/2025 CT head without IV contrast: severe white matter leukoaraiosis in the frontal and parietal lobes. Mild diffuse cerebral and cerebellar volume loss noted. No evidence for acute transcortical infarct. Please see full dictation for
additional detail.
Assessment / Plan
New onset seizures
Encephalopathy
Leukocytosis
Fever
Parkinson's disease
CAD
Hx Chron's disease
Recommendations:
Patient for MRI and LP thereafter.
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
Discontinue further ceftriaxone for now. Will await full meningitis panel to guide need for further antibacterials.
Await LP results. West Nile antibody ordered.
Further recommendations as additional data is returned.
--- NOTE | 2025-01-16 13:27 | W.CON.NEPH ---
Consultation
-
Date/Time Consultation Requested: 01/16/2025 11:30 AM
Date/Time Consultation Performed: 01/16/2025 1:30 PM
Requesting Provider: Dr. Kingsley
Performing Provider: Dr. Goodman
Reason for Consultation: Hyponatremia
Medical History
-
Chief Complaint: Hyponatremia
History of Present Illness:
Patient is a 79y M with PMH significant for Parkinson's disease who presents to ED for evaluation after shaking episode / suspected seizure at home this evening. History obtained from family at the bedside.
Patient has long-standing Parkinson's disease which has been well-controlled for some time on Crexont. At baseline, he continues to work and is functional with assist devices for ambulation.
Patient has a history of coronary artery disease and underwent CABG x 2 and Bio AVR at [facility] in September of this year. Following that surgery, he began to have increased episodes of bradykinesia / 'freezing' and general functional decline. The
family noted that his medications have been changed a number of times in an attempt to control his symptoms.
He was started on Crexont about 3-4 weeks ago. He was started on droxidopa for orthostatic hypotension. This initially caused marked hypertension (for which he was seen here in 11/2024) and was held for a time. It was restarted only 2-3 days ago.
Despite med changes he has continued to decline. This past week in particular he has been extremely fatigued and had difficulty with mobility. Two days ago he had visual hallucinations (seeing people outside his home). He has continued to have
episodes of essential paralysis due to bradykinesia / rigidity. Last evening his helped him into bed and he started to scream out and grimace as if in pain. He was shaking all over - similar to his Parkinson's tremors but more severe. He was
'ashen' appearing and his eyes 'rolled back'. He was not incontinent of bowel or bladder. 911 was called and patient was brought to the ED for further evaluation. In the ED, patient is noted to be agitated and restless.
notes that he has urinary frequency and nocturia. She states that he sleeps poorly for being up to urinate all night. He urinates in a urinal at night and indicates minimal amount (approx 50cc) with each void. When he presented to the
emergency room his serum sodium level was depressed to 125 and nephrology was asked assistance. He was noted to have acute urinary retention in the ER and a Orantes catheter was placed. I had suggested hypertonic saline but normal saline was
eventually given. The serum sodium was further depressed from 125-123 earlier this morning and nephrology is asked to see the patient.
Urine osmolality:599
Urine sodium 172
Old labs reviewed from date 12/05/2024 sodium 136 old labs reviewed from 04/09/2024 sodium 134
Past Medical History
Parkinson's Disease
ASCVD
Aortic Stenosis
Orthostatic Hypotension
CABG x 2 bioprosthetic AVR September 2024
Social History
Tobacco: Non-Smoker
Alcohol: Occasional
Personal:
Living: With Family
Family History
Family History: Not Pertinent
Allergies / Home Medications
Allergy/AdvReac Type Severity Reaction Status Date / Time
Penicillins Allergy Unknown Verified 12/05/24 05:37
�Medication �Instructions �Recorded �Confirmed �Type
rasagiline 1 mg tablet 1 mg PO DAILY Parkinson's 04/08/24 01/15/25 History
aspirin 81 mg tablet 81 mg PO DAILY Blood Clot 01/15/25 01/15/25 History
Prevention/Tx
carbidopa 70 mg-levodopa ER 280 mg 2 cap PO TID Parkinson's Disease 01/15/25 01/15/25 History
capsule,immed and extended release
(Crexont)
droxidopa 100 mg capsule 100 mg PO DAILY Orthostatic 01/15/25 01/15/25 History
hypotension
Review of Systems
-
Unable to obtain full review of systems at this time due to: Other (Reports audio and visual hallucinations prior to admission)
History Source: Patient
All other systems: Negative unless noted
Neurological: Other (Encephalopathic, rigidity, immobility severe bradykinesia)
Physical Exam
Vital Signs
Vital Signs
Temp Pulse Resp BP Pulse Ox
99.2 F 79 17 141/78 100
01/16/25 11:49 01/16/25 12:00 01/16/25 12:00 01/16/25 12:00 01/16/25 12:33
Lab Results
BMP CBC urine osmolality urine sodium
WBC 14.2 10^3/uL (4.8-10.8) H 01/16/25 02:31
01/16/25 02:31
RBC 4.20 10^6/uL (4.70-6.10) L 01/16/25 02:31
Hgb 11.6 g/dL (13.0-18.0) L 01/16/25 02:31
Hct 35.7 % (39.0-52.0) L 01/16/25 02:31
Plt Count 217 10^3/uL (130-400) 01/16/25 02:31
eGFR > 60.00 01/16/25 02:31
Phosphorus 3.9 mg/dl (2.5-4.5) 01/16/25 02:31
Albumin 4.0 g/dl (3.5-5.0) 01/15/25 18:15
Physical Exam
General: Awake and lethargic but answers most questions appropriately, he still has some confusion per conversation with daughter
HEENT: PERRL, EOMI, Anicteric, Conjunctivae Clear, Ear/Nose Intact, Hearing Normal, Oropharynx Clear/Moist, Dentition Intact, Facial Symmetry, Neck Supple, Neck: Trachea Midline, No JVD and No Thyromegaly, no Bruits
Respiratory: Coarse to auscultation bilaterally with normal lung excursion
Cardiac: S1/S2 and Regular Rate/Rhythm
Breast: Deferred by me
Abdomen: Soft, Nontender, Nondistended, Normal Bowel Sounds and No Hepatosplenomegaly
Rectal: Deferred by Provider
Genito-urinary: No Costovertebral Tenderness
Extremities: No Clubbing, No Cyanosis and No Edema
Skin: No Rash or open lesions
Neuro:
Hematologic/Lymphatic: No Cervical Lymphadenopathy, No Submandibular Lymphadenopathy and No Supraclavicular Lymphadenopathy
Psych: Mood/afflect pleasant, Insight/judgement difficult to assess
Vascular: plus 2 pedal and radial pulses
Respiratory: Clear
Cardiac: S1/S2 and Regular Rate/Rhythm
Abdomen: Soft, Nontender, Normal Bowel Sounds and No Hepatosplenomegaly
Genito-urinary: Other (Orantes catheter)
Musculoskeletal: No Clubbing, No Cyanosis and No Edema
Data Reviewed
-
Radiology: Image Personally Visualized and interpreted (Chest x-ray personally reviewed shows a small left pleural effusion mild interstitial edema)
CT Scan: Report Reviewed by me (Severe white matter changes in frontal and parietal lobes mild diffuse cerebral and cerebellar volume loss no evidence for acute stroke)
Labs: Labs Reviewed by me (BMP CBC urine osmolality) and Other (Old labs reviewed from date 12/05/2024 sodium 136)
Assessment/Plan
-
Impression:
Hyponatremia
Encephalopathy with possible seizure activity
History of coronary artery disease with CABG and bioprosthetic aortic valve replacement October 04, 2024
Advanced Parkinson's
New onset of hallucinations
History of orthostatic hypotension maintained on droxidopa: now held
Plan:
Hyponatremia:
- Concur with administration of hypertonic saline today as it was not done last evening and hyponatremia exacerbated with the administration of normal saline
- Patient's initial urine osmolality was elevated to 599 consistent with SIADH
- Hyponatremia may have been exacerbated by reported seizure activity
- Maintain fluid restriction once p.o. at 1200 cc/day
- Repeat electrolytes after hypertonic saline infusion completed
- Follow-up TSH 1.91 Cortisol 21
[2025-01-16 14:05] LABS: Urine Character Clear (Clear)
[2025-01-16 14:10] LABS: Troponin I 0.033 ng/ml
[2025-01-16] MEDS: ZOVIRAX INJECTION 112 MG IV ×2 (14:10→21:48)
[2025-01-16] MEDS: CALCIUM GLUCONATE 100 IV (14:13)
[2025-01-16 14:44] LABS: Blood Urea Nitrogen 12 mg/dl (9-20); Calcium 8.4 mg/dl (8.4-10.2); Carbon Dioxide 24 mmol/L (22-30); Chloride 104 mmol/L (98-107); Estimated Creatinine Clearance 77 ml/min; Glucose 80 mg/dl (70-99); Potassium 3.9 mmol/L (3.5-5.1); Sodium 134 mmol/L (135-145); eGFR > 60.00
--- NOTE | 2025-01-16 14:49 | PTCARENOTE ---
Patient was awake, alert and responding to nurse around lunch time. He knew the year and where he was. A short time later patient was drowsy again. Patient also has periods of tremors but responds to nurse with simple responses during these events.
Notified resident. Patient is for MRI and LP shortly.
--- NOTE | 2025-01-16 14:50 | W.PN.UPDATE ---
Update Note
Progress Note Update
checked back on the pt.Slightly more arousable. Still lethargic
MRI and LP awaited
[2025-01-16 14:55] LABS: Urine Red Blood Cell 0-2 /HPF (0-2); Urine Squamous Cell 0-2 /LPF (Few); Urine White Cell 0-2 /HPF (0-5)
--- NOTE | 2025-01-16 15:23 | CON.NEURO4 ---
Addendum entered and electronically signed by Waqar Cochran MD 01/16/25 16:45:
Studies reviewed.
I have personally examined the patient. I reviewed and agree with the HEADING MAKER's Note.
My addenda:
Lethargic, not interactive. No acute distress.
Speech few sounds produced. Rapid eye closure after passive eye opening.
Follows no requests difficulty. No tremor.
Extra-ocular movements grossly intact. Pupils constrict briskly to light presentation
Facial movements full and symmetric. Hearing intact to normal conversational volume.
Normal UE movements bilaterally.
Neck: full ROM.
Chest: no dyspnea
Heart: no JVD
Ext: (-) Clubbing, (-) Cyanosis, (-) Edema
IMPRESSIONS/RECOMMENDATIONS:
Abrupt onset of change in mental status associated with 'seizure-like activity' and agitation
Differential diagnosis includes meningitis based on the patient's recurrent fevers and unclear source of infection. It is possible that the patient has missed multiple doses of his medications which might be producing some of his symptoms. Toxic
metabolic etiologies otherwise may also be considered. Seizures are not clearly demonstrated this time based on EEG results
Would perform lumbar puncture for diagnosis of possible meningitis as an etiology
Will not continue antiseizure medications at this time but consider repeat EEG if the patient demonstrates seizure-like activity. If antiseizure medications are restarted, would use lacosamide instead of levetiracetam which could also produce
agitation
Provide thiamine
As the patient is not taking by mouth currently provide rotigotine patch 4 mg daily instead of the patient's usual carbidopa/levodopa
Restart rasagiline when patient able to take by mouth
Restart droxidopa when patient able to take by mouth to treat orthostatic hypotension
Will continue to follow patient.
Original Note:
Consultation - Neurology 4
-
CONSULTING PHYSICIAN: Waqar Cochran MD
REFERRING PHYSICIAN: Hospitalists/Dr. Serna
DICTATED BY: DANICA Cook
DATE/TIME OF REQUEST: 01/16/25
DATE/TIME OF CONSULTATION: 01/16/25
Reason for Consultation: Change in mental status
History of Present Illness:
This is a 79-year-old left-handed male who has presented to the hospital on 01/15/25 with report of possible seizure. Patient was previously evaluated by our Neurology service in March 2024 for vertigo.
From previous evaluation by Neurology Dr. Johnston on 04/08/24:
'This is a 78-year-old left-handed man who presented to [facility] on 04/08/2024 with vertigo. According to the patient reports waking up during the night to use the bathroom and experiencing vertigo before getting out of bed. He is
unsure whether the dizziness was provoked by movement or occurred at rest. The patient states that he still feels dizzy to a degree, but it does not worsen when moving his head from side to side. He also reports experiencing nausea.
No reports of head trauma, headaches, diplopia, worsening of baseline dysphagia to solids or dysarthria. History of similar episodes, ear pain or tinnitus. He did have recent travel via airplane.
Mr. Snow has a history of Parkinson's disease and is currently being treated with Carbidopa-Levodopa and Azilect 1 mg once a day. He reports developing resting tremor in his left hand that progressed to his left leg. The patient states that his
recurrent rim-enhancing behaviors have significantly subsided following initiation of melatonin in the past. The patient is not forthcoming with reporting/acknowledging visual hallucinations.
Mr. Snow denies any recent head trauma or memory issues. He has a history of back surgery, hernia repair, and cataract surgery. The patient is allergic to penicillin. He has not experienced any difficulties with swallowing, except when taking
medications. He reports being slim all his life but has lost some weight in recent years. The patient denies smoking or drinking alcohol. His family medical history includes his mother having COPD and slight dementia, and his father having
emphysema.'
MRI brain on 03/29/24 was negative for any acute abnormalities. Per patient's family, he underwent CABG x2 and AVR at [place] in September 2024. Since that time he has been having issues controlling his parkinson's symptoms and was having frequent
freezing episodes. He was started on Crexont 3-4 weeks ago and droxidopa for orthostasis, which initially caused hypertension that improved, but overall his PD symptoms didn't improve. Last evening (01/15/25), his spouse reports that he starting
screaming, grimacing in pain, and was shaking all over. His color went ashen and his eyes 'rolled back.' There was no tongue biting or incontinence of bowel/bladder. Patient received IV levetiracetam in the ER. He was severely agitated and received
several doses of haldol and diazepam. CT head was obtained and is negative for any acute abnormalities. WBC count is elevated at 14.2.
Past Medical History: Parkinsonism, CAD, Crohn's
Surgical History: Lumbar laminectomy, hernia surgery, bilateral cataract surgery, AVR, triple bypass
Family History: Reviewed and noncontributory.
Social History: Occasional alcohol. Denies tobacco and illicit drug use. 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
Allergies: Penicillins.
Home Medications: See below.
Review of Symptoms:
er the HPI. I am unable to obtain a complete review of systems�because of patient's inability to provide history.
Physical Exam:
The patient is afebrile, abdomen is nondistended, breathing is unlabored, skin is warm and dry, no edema.
Neurologic Examination:
The patient is obtunded. Does not open eyes. Grimaces to pain. He does not follow commands. Attempts to answer some questions but does not complete words. ZACK dysarthria. On cranial nerve assessment, pupils are 3 mm bilateral, round and reactive to
light and accommodation. ZACK visual nicolas. Gaze is midline, ZACK EOMs. There is no apparent facial asymmetry. ZACK hearing. ZACK Tongue palate and uvula. Moves all extremities 2/5 spontaneously. ZACK drift. No involuntary movement noted. Deep tendon
reflexes are 2+ bilateral upper and lower extremities and Babinski is absent bilaterally. ZACK sensation, DBS, and coordination.
Lab Results: See below.
Neuro Imaging:
1. CT Head 01/15/25: Severe white matter leukoaraiosis in the frontal and parietal lobes. Mild diffuse cerebral and cerebellar volume loss.
Differentials for the patient's presentation include:
1. Altered mental status; possible seizure, concern for infectious process contributing to altered mental status.
2. Parkinson's disease.
Patient has the following risk factors for their symptoms: None
Recommendations:
-Initiate rotigotine 4mg transdermal patch while unable to take home Parkinson's medications.
-EEG pending.
-MRI brain w/ and w/o contrast pending.
-Lumbar puncture pending.
-DVT prophylaxis.
-Infectious workup per primary team.
Discussed patient care with: Dr. Cochran
Vital Signs and Labs
-
Vital Signs and Labs:
Vital Signs
Temp Pulse Resp BP Pulse Ox
99.2 F 79 17 141/78 100
01/16/25 11:49 01/16/25 12:00 01/16/25 12:00 01/16/25 12:00 01/16/25 12:33
Lab Results
01/16/25 02:31
PT 14.7 Sec (11.4-14.6) H 01/15/25 18:15
INR 1.12 01/15/25 18:15
APTT 30.2 Sec (23.4-35.0) 01/15/25 18:15
Sodium 134 mmol/L (135-145) L D 01/16/25 13:27
Potassium 3.9 mmol/L (3.5-5.1) 01/16/25 13:27
BUN 12 mg/dl (9-20) 01/16/25 13:27
Glucose 80 mg/dl (70-99) 01/16/25 13:27
Calcium 8.4 mg/dl (8.4-10.2) 01/16/25 13:27
Phosphorus 3.9 mg/dl (2.5-4.5) 01/16/25 02:31
Medications
-
Active Medications
Generic Name Dose Route Start Last Admin
Trade Name Freq PRN Reason Stop Dose Admin
Acetaminophen 650 mg 01/16/25 00:40
Acetaminophen 325 Mg Tablet PO 02/13/25 00:39
Q4HPRN PRN
Mild Pain / Temp > 101
Aspirin 81 mg 01/16/25 08:00 01/16/25 08:36
Aspirin 81 Mg (Enteric Coated) Tablet PO 02/13/25 07:59 Not Given
DAILY NUBIA
Carbidopa/Levodopa 2 tablet 01/16/25 08:00 01/16/25 15:16
Carbidopa (25 Mg)/Levodopa (100 Mg) Regular Release Tablet PO 02/13/25 07:59 Not Given
TID NUBIA
Ceftriaxone Sodium 1,000 mg 01/16/25 02:00 01/16/25 02:17
Ceftriaxone 1000 Mg / 10 Ml Vial IV 1,000 mg
Q24H NUBIA Administration
Cyanocobalamin 1,000 mcg 01/16/25 09:30 01/16/25 08:37
Cyanocobalamin (Vitamin B-12) 500 Mcg Tablet PO 02/13/25 09:29 Not Given
DAILY NUBIA
Diazepam 2 mg 01/16/25 00:40
Diazepam 10 Mg/2 Ml Inj IV 02/13/25 00:39
Q6HPRN PRN
Seizure activity
Sodium Chloride 250 mls @ 30 mls/hr 01/16/25 10:22 01/16/25 11:11
Sodium Chloride 3% IV 01/16/25 18:41 250 mls
ONCE ONE Administration
Acyclovir Sodium 600 mg/ 112 mls @ 100 mls/hr 01/16/25 13:00 01/16/25 14:10
Sodium Chloride IV 01/26/25 12:59 112 mls
Q8H NUBIA Administration
Rasagiline 1 mg 01/16/25 08:00 01/16/25 08:37
Rasagiline (Azilect) 0.5 Mg Tablet (Non-Form) PO 02/13/25 07:59 Not Given
DAILY NUBIA
Rotigotine 4 mg 01/16/25 17:00
Rotigotine (Neupro) 4 Mg Patch TRANSDERM 02/13/25 16:59
DAILY NUBIA
Sodium Chloride 0 flush 01/16/25 01:00
Sodium Chloride 0.9% (Flush) Syringe IV 02/13/25 00:59
PER PROTOCOL NUBIA
Sterile Water 10 ml 01/16/25 02:00 01/16/25 02:17
Sterile Water For Injection 10 Ml Vial IV 02/13/25 01:59 10 ml
Q24H NUBIA Administration
Tamsulosin HCl 0.4 mg 01/16/25 08:00 01/16/25 08:37
Tamsulosin 0.4 Mg Capsule PO 02/13/25 07:59 Not Given
DAILY NUBIA
Thiamine HCl 100 mg 01/16/25 10:00 01/16/25 08:37
Thiamine 100 Mg Tablet PO 01/18/25 08:01 Not Given
DAILY NUBIA
Home Medications
�Medication �Instructions �Recorded
rasagiline 1 mg tablet 1 mg PO DAILY Parkinson's 04/08/24
aspirin 81 mg tablet 81 mg PO DAILY Blood Clot 01/15/25
Prevention/Tx
carbidopa 70 mg-levodopa ER 280 mg 2 cap PO TID Parkinson's Disease 01/15/25
capsule,immed and extended release
(Crexont)
droxidopa 100 mg capsule 100 mg PO DAILY Orthostatic 01/15/25
hypotension
--- NOTE | 2025-01-16 15:42 | CM ---
Initial Assessment Completed By BRAD Carter. Patient has Parkinson's disease and was not talkative or opened his eyes. and son present.
Patient lives with his in a 2 Story House, but the patient stays on the first floor. There is an elevator. Patient uses a wheelchair, Rollator, no respiratory devices, had used [facility] for PT/VN recently, and No Inpatient Rehab.
PCP: Dr. Kamla Khan at [facility]
Pharmacy: [facility]
Patient will need transportation home. Patient's PCP and care is at [facility], but no plan to move him at this time. PLAN: TBD Home vs. SNF
--- NOTE | 2025-01-16 16:28 | EEG.RPT ---
Electroencephalogram Report
Recording
Date of EE01/16/25
Type of EEG: Routine
Length of EEG recordin minutes
Done with Video Recording: Yes
Patient Status: Inpatient
Recording Conditions: Awake and Drowsy
Hyperventilation Performed: No
Photic Stimulation Performed: Yes
Report
LESS THAN 1 HOUR REPORT
LESS THAN 1 HOUR EEG INTERPRETATION:
Mild to moderately abnormal EEG for age mild diffuse bihemispheric slowing
CLINICAL CORRELATION:
This study was suggestive of diffuse cortical dysfunction without focal abnormality. No seizures were recorded. If concerns remain regarding seizures, consideration for prolonged EEG recording may be given.
Clinical correlation is advised.
METHODS:
A 21 channel digitized electroencephalogram (EEG) was performed in the Clinical Neurophysiology Laboratory. The 10/20 international system of electrode placement was used with ECG and lateral/vertical eye movements recorded. The [employer] quantitative
measurement system was utilized.
QUALITY OF STUDY:
Good
ELECTROENCEPHALOGRAPHER IMPRESSION(S):
Background
Medium amplitude fairly to poorly organized anterior-posterior voltage gradient of theta maximal activity
There were no significant asymmetries of background activity noted.
Sleep
Drowsiness present
Photic Stimulation
Failed to activate the record
ECG
Normal sinus rhythm
[2025-01-16] MEDS: NEUPRO 4 MG TRANSDERM (17:36)
--- NOTE | 2025-01-16 18:25 | PTCARENOTE ---
Patient is now speaking full sentences, oriented to person and place and time. Following commands. Patient was educated about plan of care, rational for casey catheter. Patient is able to remove TV remote.
[2025-01-16 19:44] LABS: Calcium 8.5 mg/dl (8.4-10.2); Chloride 107 mmol/L (98-107); Potassium 3.5 mmol/L (3.5-5.1); Sodium 132 mmol/L (135-145)
[2025-01-16 19:54] LABS: Blood Urea Nitrogen 14 mg/dl (9-20); Carbon Dioxide 22 mmol/L (22-30); Estimated Creatinine Clearance 77 ml/min; Glucose 74 mg/dl (70-99); eGFR > 60.00
--- NOTE | 2025-01-16 20:06 | W.PN.UPDATE ---
Update Note
Progress Note Update
D/W RN. pt will go for MRI tonight.
Per RN Pt is awake alert and oriented now.
IR holding off LP till MRI done.
--- NOTE | 2025-01-16 23:24 | PTCARENOTE ---
Pt mentation improved. Pt much more awake and arousable. Pt AAOx3, aware of surroundings and situation. Pt still remains drowsy intermittently and forgetful at times. Pt has slowed speech hard to understand at times. Pt following commands. Pt has
mild notable tremors. A-febrile. Pt educated on the need to be NPO as per speech until further evaluation, pt understanding although needs reinforcement. NSR on the monitor. 98% on RA. Mobility has significantly increased. Pt is turning side to side
and flexion at the knees b/l. Pt incontinent of bowel. Orantes catheter remains intact, yellow urine. IV acyclovir administered. Dose for ceftriaxone was not d/c'd although stated to discontinue from ID. DANICA Manrique made aware. Pt ringing the call alonzo,
call alonzo within reach, bed alarm is on.
[2025-01-16 23:43] LABS: Blood Urea Nitrogen 17 mg/dl (9-20); Calcium 8.5 mg/dl (8.4-10.2); Carbon Dioxide 24 mmol/L (22-30); Chloride 109 mmol/L (98-107); Estimated Creatinine Clearance 77 ml/min; Glucose 78 mg/dl (70-99); Potassium 3.9 mmol/L (3.5-5.1); Sodium 137 mmol/L (135-145); eGFR > 60.00
[2025-01-17] VITALS (17 sets, daily range): BP systolic 118–177; BP diastolic 56–128; BMI 16.7
[2025-01-17] MEDS: ROCEPHIN 1000 MG IV (01:00)
[2025-01-17] MEDS: STERILE WATER FOR INJECTION 10 ML IV (01:00)
[2025-01-17 03:48] LABS: Blood Urea Nitrogen 19 mg/dl (9-20); Calcium 8.6 mg/dl (8.4-10.2); Carbon Dioxide 23 mmol/L (22-30); Chloride 108 mmol/L (98-107); Estimated Creatinine Clearance 77 ml/min; Glucose 75 mg/dl (70-99); Potassium 3.5 mmol/L (3.5-5.1); Sodium 134 mmol/L (135-145); eGFR > 60.00
[2025-01-17] MEDS: APRESOLINE 5 MG IV (04:21)
[2025-01-17] MEDS: ZOVIRAX INJECTION 112 MG IV (04:22)
--- NOTE | 2025-01-17 04:40 | PTCARENOTE ---
Patient hypertensive. BP >170 systolic. DANICA Manrique made aware, orders for one time dose IV Hydralazine. BP 128/91.
--- NOTE | 2025-01-17 05:12 | PTCARENOTE ---
Patient experiencing visual hallucinations. Pt yelling out. Pt stating he 'spilled sauce all over'. Pt remains oriented to person, place, and time, however. Provided reassurance. Pt states he has had hallucinations in the recent past.
[2025-01-17 06:23] LABS: Hematocrit 35.5 % (39.0-52.0); Hemoglobin 11.2 g/dL (13.0-18.0); Mean Corp Hgb Conc. 31.5 g/dL (33.0-37.0); Mean Corpuscular Volume 87.7 fL (80.0-94.0); Platelet Count 198 10^3/uL (130-400); Red Cell Dist. Width 17.2 % (11.5-14.5)
[2025-01-17 06:46] LABS: Blood Urea Nitrogen 19 mg/dl (9-20); Calcium 8.6 mg/dl (8.4-10.2); Carbon Dioxide 22 mmol/L (22-30); Chloride 108 mmol/L (98-107); Estimated Creatinine Clearance 74 ml/min; Glucose 70 mg/dl (70-99); Potassium 3.4 mmol/L (3.5-5.1); Sodium 138 mmol/L (135-145); eGFR > 60.00
--- NOTE | 2025-01-17 08:46 | PTCARENOTE ---
Rec'd pt this AM. Discussed case with Dr. Kingsley. Notified MRI that pt is currently calm and agreeable to MRI, feels he can tolerate it without issue. Discussed that should pt have an issue while there to call RN, and NOT send pt back to floor. RN
will then come to MRI to medicate pt. Resident ordered PRN med for anxiety if needed. Pt transported to MRI
[2025-01-17] MEDS: ASPIR LOW (ENTERIC COATED) PO (09:05)
[2025-01-17] MEDS: FLOMAX PO (09:05)
[2025-01-17] MEDS: RASAGILINE MESYLATE PO (09:08)
[2025-01-17] MEDS: VITAMIN B-12 PO (09:08)
[2025-01-17] MEDS: VITAMIN B1 PO (09:09)
--- NOTE | 2025-01-17 10:13 | PN.CDI ---
CDI
- -
CDI:
Physician Documentation Request
Admit Date: 01/15/25 22:29
Dear Doctor Hakeem,
Clinical Indicators:
Patient admitted with altered mental status, possible seizure; PMH includes Parkinson' disease.
Height: 5 ft 9 in
Weight: 113 lbs 1.5 oz
BMI: 16.7
01/16 note/assessment: Underweight (<18.5)
If possible, please provide an associated diagnosis related to the abnormal BMI, such as:
Underweight
Cachectic
Other,please specify
Use of terms such as suspected, likely, concern for, or probable (associated with a specific diagnosis that is being evaluated, monitored, or treated as if it exists) are acceptable and can be coded in the inpatient setting, when documented at the
time of discharge.
Thank you,
DIANNE Crain RN
CDI Specialist
available via tiger text
Please use your independent medical judgment in providing your response.
--- NOTE | 2025-01-17 10:46 | W.PN.NEURO.1 ---
Addendum entered and electronically signed by Waqar Cochran MD 01/17/25 16:44:
Studies reviewed.
I have personally examined the patient. I reviewed and agree with the SUPERVISOR POWDERED SUGAR's Note.
My addenda:
Awake, alert, interactive. No acute distress.
Speech mildly dysarthric mildly hypophonic.
Follows 1-step requests w/ mild difficulty. No tremor.
Extra-ocular movements grossly intact.
Facial movements full and symmetric. Hearing intact to normal conversational volume.
Normal UE movements bilaterally.
Neck: full ROM.
Chest: no dyspnea
Heart: no JVD
Ext: (-) Clubbing, (-) Cyanosis, (-) Edema
IMPRESSIONS/RECOMMENDATIONS:
Abrupt onset of change in mental status with movements that were suggestive of 'seizures.' Most likely etiology for the prior event was orthostatic hypotension and convulsive syncope. Inadequate dosing of carbidopa levodopa may have also produced
similar symptoms as well as toxic metabolic etiology although 1 was not discovered
Continue rotigotine patch, decrease from 4 mg to dosing of 2 mg daily
Restart carbidopa/levodopa at prior dosing
Continue droxidopa with the patient having a regimen of sleeping at 30 degrees to prevent supine hypertension
Continue rasagiline
No indication for antiseizure medication
Continue thiamine while hospitalized
D/W patient / family
All questions answered.
Will continue to follow as needed.
Original Note:
Documented by User: Kayla Dumont NP 01/17/25 16:07
Today's Communication / Plan
-
.
Neuro Assessment/Plan
Assessment
IMPRESSIONS/RECOMMENDATIONS:
Abrupt onset of change in mental status associated with 'seizure-like activity' and agitation
Recurrent fevers and unclear source of infection, now improving. Orthostatic hypotension/convulsive syncope likely produced 'seizure like activity.' Toxic metabolic etiologies otherwise may also be considered. Seizures are not clearly demonstrated
this time based on EEG results.
MRI brain is negative for any acute abnormalities.
Plan
Will defer LP at this time due to drastic improvement in symptoms.
Will not continue antiseizure medications at this time.
Provide thiamine
Okay to continue rotigotine patch 4 mg daily in addition to the patient's usual carbidopa/levodopa until seen by his outpatient Neurologist for further recommendations.
Restart rasagiline when patient able to take by mouth
Restart droxidopa when patient able to take by mouth to treat orthostatic hypotension
Subjective/Objective
Subjective Data
Date of Service: January 17, 2025
No acute events overnight. Patient is awake and alert today, does not recall the events of the past couple of days.
Objective Data
Vital Signs
Temp Pulse Resp BP Pulse Ox
98.8 F 80 14 150/73 98
01/17/25 08:22 01/17/25 08:00 01/17/25 08:00 01/17/25 08:00 01/17/25 02:08
Lab Results
01/17/25 05:55
PT 14.7 Sec (11.4-14.6) H 01/15/25 18:15
INR 1.12 01/15/25 18:15
APTT 30.2 Sec (23.4-35.0) 01/15/25 18:15
Sodium 138 mmol/L (135-145) 01/17/25 05:55
Potassium 3.4 mmol/L (3.5-5.1) L 01/17/25 05:55
BUN 19 mg/dl (9-20) 01/17/25 05:55
Glucose 70 mg/dl (70-99) 01/17/25 05:55
Calcium 8.6 mg/dl (8.4-10.2) 01/17/25 05:55
Phosphorus 3.9 mg/dl (2.5-4.5) 01/16/25 02:31
Patient Allergies
Penicillins Allergy (Verified 12/05/24 05:37)
Unknown
Review of Systems
-
History Source: Patient
EENT: Negative Blurry Vision, Decreased Vision or Swallowing Difficulty
Respiratory: Negative Cough or Trouble Breathing
Cardiac: Negative Chest Pain or Palpitations
Neuro: Negative Dizzy, Headache, Weakness, Numbness, Ataxia, Tremors or Speech Problem
Physical Exam
-
General: No Apparent Distress
Eyes: No Ptosis and PERRLA
HEENT: Normocephalic and Atraumatic
Neck: Full Range of Motion
Respiratory: No Dyspnea
GI: Non-distended
Extremities: No Clubbing, No Cyanosis and No Edema
Extended Neurological Exam
Mood & Affect: Mood Unremarkable and Affect Unremarkable
Attention Span & Concentration: Awake, Alert and Interactive
Memory: Reduced
Tremor: Hand Tremor Absent and Head Tremor Absent
Involuntary Movement: None
Speech: Quantity Unremarkable and Rate of Production Unremarkable; Negative Quality Unremarkable (hypophonic)
Muscle Strength, Overall: Spontaneously Moves
Data Reviewed
-
MRI Head: Report Reviewed and Image Reviewed
EEG: Report Reviewed
Labs: Report Reviewed
Reviewed with: Physician, Nurse, Patient and Family
Medications
-
Active Medications
Generic Name Dose Route Start Last Admin
Trade Name Freq PRN Reason Stop Dose Admin
Acetaminophen 650 mg 01/16/25 00:40
Acetaminophen 325 Mg Tablet PO 02/13/25 00:39
Q4HPRN PRN
Mild Pain / Temp > 101
Aspirin 81 mg 01/16/25 08:00 01/17/25 09:05
Aspirin 81 Mg (Enteric Coated) Tablet PO 02/13/25 07:59 Not Given
DAILY NUBIA
Carbidopa/Levodopa 2 tablet 01/16/25 08:00 01/17/25 09:08
Carbidopa (25 Mg)/Levodopa (100 Mg) Regular Release Tablet PO 02/13/25 07:59 Not Given
TID NUBIA
Ceftriaxone Sodium 1,000 mg 01/16/25 02:00 01/17/25 01:00
Ceftriaxone 1000 Mg / 10 Ml Vial IV 1,000 mg
Q24H NUBIA Administration
Cyanocobalamin 1,000 mcg 01/16/25 09:30 01/17/25 09:08
Cyanocobalamin (Vitamin B-12) 500 Mcg Tablet PO 02/13/25 09:29 Not Given
DAILY NUBIA
Diazepam 2 mg 01/16/25 00:40
Diazepam 10 Mg/2 Ml Inj IV 02/13/25 00:39
Q6HPRN PRN
anxiety
Acyclovir Sodium 600 mg/ 112 mls @ 100 mls/hr 01/16/25 13:00 01/17/25 04:22
Sodium Chloride IV 01/26/25 12:59 112 mls
Q8H NUBIA Administration
Rasagiline 1 mg 01/16/25 08:00 01/17/25 09:08
Rasagiline (Azilect) 0.5 Mg Tablet (Non-Form) PO 02/13/25 07:59 Not Given
DAILY NUBIA
Rotigotine 4 mg 01/16/25 17:00 01/16/25 17:36
Rotigotine (Neupro) 4 Mg Patch TRANSDERM 02/13/25 16:59 4 mg
DAILY NUBIA Administration
Sodium Chloride 0 flush 01/16/25 01:00
Sodium Chloride 0.9% (Flush) Syringe IV 02/13/25 00:59
PER PROTOCOL NUBIA
Sterile Water 10 ml 01/16/25 02:00 01/17/25 01:00
Sterile Water For Injection 10 Ml Vial IV 02/13/25 01:59 10 ml
Q24H NUBIA Administration
Tamsulosin HCl 0.4 mg 01/16/25 08:00 01/17/25 09:05
Tamsulosin 0.4 Mg Capsule PO 02/13/25 07:59 Not Given
DAILY NUBIA
Thiamine HCl 100 mg 01/16/25 10:00 01/17/25 09:09
Thiamine 100 Mg Tablet PO 01/18/25 08:01 Not Given
DAILY NUBIA
Home Medications
�Medication �Instructions �Recorded
rasagiline 1 mg tablet 1 mg PO DAILY Parkinson's 04/08/24
aspirin 81 mg tablet 81 mg PO DAILY Blood Clot 01/15/25
Prevention/Tx
carbidopa 70 mg-levodopa ER 280 mg 2 cap PO TID Parkinson's Disease 01/15/25
capsule,immed and extended release
(Crexont)
droxidopa 100 mg capsule 100 mg PO DAILY Orthostatic 01/15/25
hypotension

Documented by User: Waqar Cochran MD 01/17/25 16:40
Past History
Past History
ED Past Medical History: CAD (S/p triple bypass and AVR 09/2024) and Other (Parkinsons, history of Crohn's (apparently resolved))
ED Past Surgical History: Cardiac (AVR and triple bypass on 10/04/2024) and Orthopedic (Back surgery and hernia repair)
Social History
Tobacco: Non-smoker
Alcohol: None
Drug: None
Personal:
Living: with family
Medications
-
Medications:
Generic Name Dose Route Start Last Admin
Trade Name Freq PRN Reason Stop Dose Admin
Acetaminophen 650 mg 01/16/25 00:40
Acetaminophen 325 Mg Tablet PO 02/13/25 00:39
Q4HPRN PRN
Mild Pain / Temp > 101
Aspirin 81 mg 01/16/25 08:00 01/17/25 09:05
Aspirin 81 Mg (Enteric Coated) Tablet PO 02/13/25 07:59 Not Given
DAILY NUBIA
Cyanocobalamin 1,000 mcg 01/16/25 09:30 01/17/25 09:08
Cyanocobalamin (Vitamin B-12) 500 Mcg Tablet PO 02/13/25 09:29 Not Given
DAILY NUBIA
Diazepam 2 mg 01/16/25 00:40
Diazepam 10 Mg/2 Ml Inj IV 02/13/25 00:39
Q6HPRN PRN
anxiety
Carbidopa/Levodopa 0 unit 01/17/25 18:00
70-280 Mg Extended PO 02/14/25 17:59
Release Capsules [ QID NUBIA
Crexont] - 2
Capsules Po Qid
Rasagiline 1 mg 01/16/25 08:00 01/17/25 09:08
Rasagiline (Azilect) 0.5 Mg Tablet (Non-Form) PO 02/13/25 07:59 Not Given
DAILY NUBIA
Sodium Chloride 0 flush 01/16/25 01:00
Sodium Chloride 0.9% (Flush) Syringe IV 02/13/25 00:59
PER PROTOCOL NUBIA
Tamsulosin HCl 0.4 mg 01/16/25 08:00 01/17/25 09:05
Tamsulosin 0.4 Mg Capsule PO 02/13/25 07:59 Not Given
DAILY NUBIA
Thiamine HCl 100 mg 01/16/25 10:00 01/17/25 09:09
Thiamine 100 Mg Tablet PO 01/18/25 08:01 Not Given
DAILY NUBIA
[2025-01-17] MEDS: NEUPRO 4 MG TRANSDERM (10:58)
--- NOTE | 2025-01-17 11:02 | WOUNDNOTE ---
LEFT MEDIAL LOWER LEG
--- NOTE | 2025-01-17 11:03 | WOUNDNOTE ---
LEFT POSTERIOR KNEE
--- NOTE | 2025-01-17 11:03 | WOUNDNOTE ---
BILATERAL LOWER EXTREMITIES
--- NOTE | 2025-01-17 11:04 | WOUNDNOTE ---
LEFT 5TH FINGER
--- NOTE | 2025-01-17 11:04 | WOUNDNOTE ---
LEFT 5TH FINGER
--- NOTE | 2025-01-17 11:05 | WOUNDNOTE ---
LEFT MEDIAL FOOT
--- NOTE | 2025-01-17 11:05 | WOUNDNOTE ---
LEFT DORSAL FOOT
--- NOTE | 2025-01-17 11:24 | WOUNDNOTE ---
[facility] RN note: Patient admitted with seizures, encephalopathy.
See H&P for complete history.
PMH:ED Past Medical History: CAD (S/p triple bypass and AVR 09/2024) and Other (Parkinsons, history of Crohn's (apparently resolved))
ED Past Surgical History: Cardiac (AVR and triple bypass on 10/04/2024) and Orthopedic (Back surgery and hernia repair)
Wound Location and type/assessment: Patient admitted with: skin tears to L thumb web, back abrasions and bruising on buttock from recent fall. Patient assessed with Dr. Kingsley. L lower medial mcadams with skin cancer site that states was removed
by a public health dietitian. Now red and hypergranulated, recommended silver nitrate to area. Dr. Kingsley will call public health dietitian and see if that is advisable. If Derm. agrees, hospitalist will do silver nitrate to area. L medial knee with scabbed skin tear,
scant drainage. L medial foot with an abrasion. Dorsal foot intact scab. Heels intact. Patient able to stand with walker, Sacrum intact, bruising visible and raw abrasions on spine.
Appetite: Fair.
Pressure redistribution devices in place: Air mattress. Using air cushion in chair.
Plan: Local wound care applied and confirmed with Dr. Kingsley. Defer L skin cancer site to hospitalist.
Updated nurse Asia, care plan and will follow as needed.
Note to case management of equipment requested for discharge: TBD.
Recommend follow up with public health dietitian.
--- NOTE | 2025-01-17 11:25 | WOUNDNOTE ---
[facility] RN note: Patient admitted with seizures, encephalopathy.
See H&P for complete history.
PMH:ED Past Medical History: CAD (S/p triple bypass and AVR 09/2024) and Other (Parkinsons, history of Crohn's (apparently resolved))
ED Past Surgical History: Cardiac (AVR and triple bypass on 10/04/2024) and Orthopedic (Back surgery and hernia repair)
Wound Location and type/assessment: Patient admitted with: skin tears to L 5th finger, back abrasions and bruising on buttock from recent fall. Patient assessed with Dr. Kingsley. L lower medial mcadams with skin cancer site that states was
removed by a new account interviewer. Now red and hypergranulated, recommended silver nitrate to area. Dr. Kingsley will call new account interviewer and see if that is advisable. If Derm. agrees, hospitalist will do silver nitrate to area. L medial knee with scabbed
skin tear, scant drainage. L medial foot with an abrasion. Dorsal foot intact scab. Heels intact. Patient able to stand with walker, Sacrum intact, bruising visible and raw abrasions on spine.
Appetite: Fair.
Pressure redistribution devices in place: Air mattress. Using air cushion in chair. Foams applied to heels.
Plan: Local wound care applied and confirmed with Dr. Kingslye. Defer L skin cancer site to hospitalist.
Updated nurse Asia, care plan and will follow as needed.
Note to case management of equipment requested for discharge: TBD.
Recommend follow up with new account interviewer.
--- NOTE | 2025-01-17 11:27 | W.PN.NEPH.PH ---
Today's Communication / Plan
-
Will sign off
Assessment/Plan
-
Impression:
Hyponatremia
Encephalopathy with possible seizure activity
History of coronary artery disease with CABG and bioprosthetic aortic valve replacement October 04, 2024
Advanced Parkinson's
New onset of hallucinations
History of orthostatic hypotension maintained on droxidopa: now held
Plan:
Hyponatremia:
- Status post hypertonic saline sodium normal
- Patient's initial urine osmolality was elevated to 599 consistent with SIADH
- Hyponatremia may have been exacerbated by reported seizure activity
Will sign off please call if needed
-
-
Date of Service: January 17, 2025
CC / HPI / ROS
-
Chief Complaint:
Altered mental status
History of Present Illness:
Hyponatremia/seizure
Review of Systems:
Patient awake alert
No chest pain or shortness
Labs
-
Labs:
WBC 10.6 10^3/uL (4.8-10.8) 01/17/25 05:55
RBC 4.05 10^6/uL (4.70-6.10) L 01/17/25 05:55
Hgb 11.2 g/dL (13.0-18.0) L 01/17/25 05:55
Hct 35.5 % (39.0-52.0) L 01/17/25 05:55
Plt Count 198 10^3/uL (130-400) 01/17/25 05:55
eGFR > 60.00 01/17/25 05:55
Phosphorus 3.9 mg/dl (2.5-4.5) 01/16/25 02:31
Albumin 4.0 g/dl (3.5-5.0) 01/15/25 18:15
Physical Exam
-
Vital Signs:
Vital Signs
Temp Pulse Resp BP Pulse Ox
98.8 F 89 21 142/98 98
01/17/25 08:22 01/17/25 11:03 01/17/25 11:03 01/17/25 11:03 01/17/25 02:08
Respiratory:: Bilateral: CTA
Lung Excursion:: Normal
Abdomen:: Soft
Bowel Sounds:: Normal
Extremity Edema:: None: Bilateral:
--- NOTE | 2025-01-17 11:35 | PTOTSP ---
Speech Language Pathology
Pt seen for dysphagia tx. Significantly improved alertness noted this date. Pt sitting upright in recliner, conversing with , son, and grandson upon SEARCH AND RESCUE OFFICER arrival. Pt/ reported dry mouth and some difficulty with dry solids for this reason.
Pt denied noting coughing/choking episodes or globus sensation with P.O. intake prior to admission. Son reported PNA x1 approximately 5 years ago.
Seen with P.O. trials of puree, regular solids, and thin liquids provided. Adequate mastication, bolus formation, and A-P transit noted with no oral residue. Throat clear x1 with very last sip of thin liquid. No other throat clearing or any
coughing noted during session.
Discussed increased risk for aspiration, including silent aspiration, given Parkinson's. Pt has seen SEARCH AND RESCUE OFFICER in past for speech/voice, not for swallowing. Has never had an instrumental swallowing assessment before. Discussed availability of
instrumental swallowing assessment, but WBC WNL, and pt has not had PNA prior/does not currently have PNA. Decided to hold on instrumental swallowing assessment at this time, but pt/family aware of availability if needed in the future. Son
concerned about speech/voice changes. Discussed availability of outpatient [facility] program for Parkinson's and provided brochure for [facility] outpatient.
Recommend:
(1) Regular solids/thin liquids
(2) General aspiration precautions
(3) Meds as tolerated
(4) SEARCH AND RESCUE OFFICER to continue to follow
[2025-01-17 11:37] LABS: Blood Urea Nitrogen 20 mg/dl (9-20); Calcium 8.8 mg/dl (8.4-10.2); Carbon Dioxide 21 mmol/L (22-30); Chloride 107 mmol/L (98-107); Estimated Creatinine Clearance 74 ml/min; Glucose 73 mg/dl (70-99); Potassium 3.8 mmol/L (3.5-5.1); Sodium 139 mmol/L (135-145); eGFR > 60.00
--- NOTE | 2025-01-17 12:13 | W.PN.ID1 ---
Date of Service
Date of Service: January 17, 2025
Today's Communication
Discontinue antibiotics and observe
Assessment / Plan
New onset seizures
Encephalopathy
Leukocytosis
Fever
Parkinson's disease
CAD
Hx Chron's disease
Recommendations:
MRI nonrevealing. LP has been canceled.
Patient previously started on empiric acyclovir, but encephalopathy appears resolved, which speaks against herpesvirus infection.
Discontinue further acyclovir /ceftriaxone.
����������������������������������������������������������
Chief Complaint
-: Other (Encephalopathy)
Subjective / Review of Systems
Patient seen and examined. Currently in chair. reports that patient's mentation is back to normal.
Review of Systems: No Fever and No Chills
Vital Signs / Physical Exam
Vital Signs
Vital Signs
Temp Pulse Resp BP Pulse Ox
98.8 F 89 21 142/98 98
01/17/25 08:22 01/17/25 11:03 01/17/25 11:03 01/17/25 11:03 01/17/25 02:08
Physical Exam
Constitutional: No Acute Distress, Comfortable, Chronically Ill and Non-toxic
Cardiovascular: S1/S2; Negative S3/S4
Pulmonary: Non Labored
Gastrointestinal: Soft and Non Tender
Neurological: Awake and Alert; Negative Meningeal Signs
Objective Data
Lab Data
Lab Results
01/17/25 05:55
01/17/25 10:56
PT 14.7 Sec (11.4-14.6) H 01/15/25 18:15
INR 1.12 01/15/25 18:15
APTT 30.2 Sec (23.4-35.0) 01/15/25 18:15
Estimated Creat Clear 74 ml/min 01/17/25 10:56
Lactic Acid Cancelled 01/16/25 06:40
Total Bilirubin 0.9 mg/dl (0.2-1.3) 01/15/25 18:15
AST 23 U/L (17-59) 01/15/25 18:15
ALT < 10 U/L (0-50) 01/15/25 18:15
Alkaline Phosphatase 65 U/L (38-126) 01/15/25 18:15
Most recent labs reviewed.
Micro Results:
01/16/25 01:42 MRSA Screen - Final
Nose Staph aureus MRSA
01/16/25 02:31 Blood Culture - Preliminary
Blood/Venous No Growth in 24 hours- Final report to follow
01/16/25 02:31 Blood Culture - Preliminary
Blood/Venous No Growth in 24 hours- Final report to follow
01/16/25 02:26 Influenza Types A & B ([facility]) - Final
Nasal Swab Negative for Influenza A & B, NAAT
Negative results must be combined with clinical observations
and patient history.
Nucleic Acid Amplification test (NAAT)performed on the
Listen Up platform.
Imaging:
01/17/2025 MRI brain: no evidence of acute intracranial abnormality. Moderate diffuse atrophy noted. Please see full dictation for additional detail.
01/15/2025 CXR (portable): small left pleural effusion. Multiple bands of subsegmental atelectasis and scarring. Mild interstitial cardiogenic pulmonary edema. Previous CABG surgery and aortic valve replacement noted. Please see full dictation
for additional detail.
01/15/2025 CT head without IV contrast: severe white matter leukoaraiosis in the frontal and parietal lobes. Mild diffuse cerebral and cerebellar volume loss noted. No evidence for acute transcortical infarct. Please see full dictation for
additional detail.
--- NOTE | 2025-01-17 12:24 | CON.CAR ---
Addendum entered and electronically signed by Thaddeus Granger MD 01/17/25 13:35:
I saw and examined the patient.
The HYDRAULIC DREDGE OPERATOR or PA's note was reviewed and I agree with the note.
Comment: General: Well developed, well nourished in NAD.
Neck: Supple, no JVD, HJR, carotids +2 B/L, no bruits bilaterally.
Heart: Non displaced PMI, RRR, no murmurs, No S3, S4, no rubs.
Lungs: Scattered rhonchi at the bases
Extremities: No clubbing, cyanosis or edema bilaterally.
Neuro: Grossly nonfocal, awake, alert and oriented x3.
Opal has a history of bioprosthetic AVR and CABG in September 2024 at [place], postoperative orthostatic hypotension, Parkinson's disease. Of note he also had pleural effusions requiring thoracentesis. He presented with change in mental status.
This has improved. Cardiology was consulted for elevated troponin. He denies any chest pain.
Suspect troponin elevation is nonischemic myocardial injury. Will check echocardiogram. Volume status appears reasonable at present. Check proBNP. Mental status has improved significantly. Discussed with patient and family at bedside. Will
obtain records from [facility].
Original Note:
Consultation
Consultation Request
Date/Time Consultation Performed: 01/17/25
Requesting Provider: Dr. Kingsley
Performing Provider: Chanell Moss PA-C for Dr. Granger
Reason for Consultation: elevated troponin
Medical History
-
Chief Complaint: seizure like activity
History of Present Illness:
Patient is a 79 yo M with PMH of Parkinson's disease on who underwent bio AVR and CABG x2 09/2024 at [facility]. Post op course complicated by orthostatic hypotension and seemingly worsening Parkinson's symptoms per family. Patient had been on
droxidopa which initially caused significant hypertension and was stopped. Per family was restarted 3 days ago. 2 days ago reportedly had visual hallucinations. Then night of admission he had episode of diffuse shaking following by becoming pale and
his eyes reportedly rolled back. Brought to ED by EMS. Also spiked fever 01/16. His sodium was also low. Mental status has improved from admission. Cardiology consulted as noted to have elevated troponin. No CP. Primary Security Specialist is Dr. Gurbbs.
PMH:
History of bio AVR and CABG times 23/12/24 at [facility]
Postop orthostatic hypotension
Parkinson's disease
History of lumbar laminectomy
Past Medical History
Past Medical History: Other (in HPI)
Social History
Tobacco: Non-Smoker
Alcohol: Occasional
Personal:
Living: With Family
Employment: Retired
Family History
Family History: Reviewed & Not Pertinent
Allergies / Home Medications
Allergy/AdvReac Type Severity Reaction Status Date / Time
Penicillins Allergy Unknown Verified 12/05/24 05:37
�Medication �Instructions �Recorded �Confirmed �Type
rasagiline 1 mg tablet 1 mg PO DAILY Parkinson's 04/08/24 01/15/25 History
aspirin 81 mg tablet 81 mg PO DAILY Blood Clot 01/15/25 01/15/25 History
Prevention/Tx
carbidopa 70 mg-levodopa ER 280 mg 2 cap PO TID Parkinson's Disease 01/15/25 01/15/25 History
capsule,immed and extended release
([place])
droxidopa 100 mg capsule 100 mg PO DAILY Orthostatic 01/15/25 01/15/25 History
hypotension
Review of Systems
-
History Source: Patient and Family
All other systems: Negative unless noted
Physical Exam
Vital Signs
Temp Pulse Resp BP Pulse Ox
98.8 F 89 21 142/98 98
01/17/25 08:22 01/17/25 11:03 01/17/25 11:03 01/17/25 11:03 01/17/25 02:08
Lab Results
01/17/25 05:55
01/17/25 10:56
Troponin I 0.033 ng/ml 01/16/25 13:27
Physical Exam
General: No Apparent Distress, Comfortable and Other (Sitting in chair. Quiet speech. Frail-appearing)
HEENT: Normocephalic, Anicteric and Moist Mucous Membranes
Respiratory: Clear and Non Labored Respirations
Cardiac: S1/S2 and Regular Rhythm
GI: Soft, Non Tender, Non Distended and Normal Bowel Sounds
Musculoskeletal: No Clubbing, No Cyanosis and No Edema
Skin: Warm and Dry
Neuro: AO x 3
Impression / Plan
-
Primary tax assistant: Dr. Grubbs of [facility]
Assessment:
Presentation with change in mental status
Concern for seizure-like activity
Urinary retention
Hyponatremia
Elevated troponin, suspected nonischemic myocardial injury in setting of above
Anemia
History of bio AVR and CABG times 2 10/04/24 at [facility]
Postop orthostatic hypotension
Parkinson's disease
History of lumbar laminectomy
DNR CODE STATUS
Echo 01/17/2025: Pending
Plan:
- Patient presented with change in mental status with concern for seizure-like activity. Of note he had recently restarted droxidopa for hypotension and Parkinson's.
- neurology evaluation ongoing. brain MRI without acute abnormality noted
- cardiology consulted as trop peaked at 0.058 and downtrending. no CP
- EKG 01/15 normal sinus rhythm with LAFB and LVH. Repeat 01/16 noted to have T wave inversion in lateral leads compared to prior
- Continue aspirin
- Check echo given recent AVR/CABG
- Obtain records from Dr. Hughes for review
- Not on beta-alee as an outpatient due to orthostatic hypotension and Parkinson's
- Not on statin as reportedly no cholesterol issues in the past per patient's son
- Chest x-ray shows possible mild interstitial edema and trace left-sided pleural effusion. He is without evidence of gross volume overload on examination and is not requiring supplemental O2. Check proBNP. Given significant orthostasis, hesitant
to diurese at this time
- Discussed with patient and family at bedside
Data Reviewed
-
EKG: Tracing Personally Visualized and interpreted
Radiology: Report Reviewed by me
MRI: Report Reviewed by me
Labs: Labs Reviewed by me
Old Records: Requested and Reviewed
--- NOTE | 2025-01-17 12:31 | W.PN.HOSP.TC ---
Addendum entered and electronically signed by Jessica Kingsley MD 01/17/25 14:21:
Seen and examined the patient with resident. Earlier today. Agree with plan formulated together.
Late documentation
Patient was seen earlier today was at bedside
He seemed to be awake alert oriented x 3, he remembers that he was at home and had shaking and coming to the hospital.
Cardiovascular system S1-S2 appreciated
Chest clear to auscultation
Abdomen soft and nontender
No neck stiffness noted today
MRI of the brain-no evidence of acute intracranial abnormality. Moderate diffuse atrophy. 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
# Episode of shaking-possibly could have been seizures from hyponatremia?
Was given Keppra in the ER not continued by neurology
MRI of the brain without any acute changes
# Hypokalemia-corrected
# Encephalopathy
Blood cultures negative so far
No more fevers
EEG without any seizures per discussion with neurology
MRI without any acute changes
LP has not been performed yet even though ordered yesterday
He was started on antivirals and was also on ceftriaxone 1 g daily dose which were discontinued today
Watch patient off of antimicrobials
# Acute urinary retention-Orantes catheter was placed in the ER-continue Flomax
# Parkinson disease with history of autonomic dysfunction
Rasagiline was on hold for cardiac surgery which was restarted recently
He is on Crexont as outpatient now that he can take p.o. we will restart that and discontinue patch
Neurology evaluated and following
# Hyponatremia-symptomatic
Possibly could have had seizure from that
SIADH
3% saline given, when sodium corrected patient became more awake and alert
Normal TSH and cortisol level
# Mildly elevated troponin-trended down-likely nonischemic myocardial injury
Cardiology has been consulted
Repeat chest x-ray linear opacities in the left lung base atelectasis and or scarring. Trace left pleural effusion
# Aortic stenosis status post bioprosthetic aortic valve replacement at [facility] September 2024
# Coronary disease with history of CABG September 2024
# DVT prophylax-SCDs
# DNR
Discussed with patient's at bedside
Discussed with neurology
Discussed with infectious disease
Discussed with interventional radiology
Discussed with nursing
Discussed with patient's outpatient neurologist again today and updated.
Family interested in transferring patient to [facility].Dr Adithya Acsota accepting per family. They do not want lumbar puncture done here. Rationale behind in doing lumbar puncture was explained to the family in detail yesterday.
Time spent over 50 minutes
Original Note:
Today's Communication/Plan
-
Advance to regular diet, thin liquids
Brain MRI unremarkable
Chest x-ray stable to prior
DC antibiotics antivirals
LP pending
Cardiology consult
Assessment / Plan
Assessment / Plan
Patient is a 79y M with PMH significant for Parkinson's disease who presents to ED for evaluation after shaking episode / suspected seizure at home this evening. At baseline, he continues to work and is functional with assist devices for
ambulation.
Patient underwent CABG x 2 and bovine AVR at [facility] in September of this year. Following that surgery, he began to have increased episodes of bradykinesia / 'freezing' and general functional decline. Family notes that his medications have been
changed a number of times in an attempt to control his symptoms. In the ED, patient is noted to be agitated and restless and had some shaking episodes, was given Keppra and diazepam. Head CT negative for acute intracranial abnormalities. Labs
showed hyponatremia, patient was given IV fluids. In the hospital patient was initially obtunded and altered unable to respond to commands and continued to shake, urine study showed SIADH, patient fluid restricted and nephrology consulted for 3%
saline. Patient's outside PCP and neurologist were contacted who reported low sodium as recently as the end of November. They also reported significant medication changes that appear to be ongoing. Neurology was consulted for altered mental
status and possible seizures, EEG ordered and showed no seizure, brain MRI was unremarkable, LP pending. ID was consulted for fever and altered mental status with concerns for encephalitis or meningitis, patient was started on empiric antibiotics
and antivirals. Patient was also found to have elevated troponins and cardiology was consulted, EKG was unrevealing showed no evidence of active ACS, troponins down trended to within normal limits. During the hospital stay patient's sodium
continue to improve and on 01/17 patient's mentation was back to baseline according to family. ID recommended discontinuing empiric antibiotics and antivirals.
#Altered mental status
#Shaking
DDx includes seizure, encephalitis, meningitis, stroke
- Elevated lactate level, hyponatremia, etc consistent with possible seizure
- Other history seems more consistent with worsening Parkinson's, urinary retention and pain / agitation.
- CT head with no acute abnormality.
- Neurology consult appreciate recs
-LP
-DC antiseizure medications, if restarted use lacosamide instead of levetiracetam
-Thiamine and B12
-Rotigotine patch 4 mg daily instead of carbo levodopa
- Restart oral Sinemet tomorrow since patient received patch today
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
- LP pending
- Repeat chest x-ray stable no evidence of pneumonia, trace left pleural effusion
- ID consult
- Discontinue ceftriaxone acyclovir
#Parkinson's Disease
Outpatient neurologist contacted at request of family
Neurologist okay with LP
Revaluated by [employer], patient allowed p.o., regular diet thin liquids
- Uncontrolled. Recent episodes of severe bradykinesia / rigidity / immobility.
- Change Crexont to Sinemet 4 times a day
-Rotigotine patch 4 mg daily instead of carbo levodopa
- Resume oral meds tomorrow
#Hyponatremia, resolved
- Na initially 125 improved to 139.
- urine studies indicating SIADH
- S/p fluid restriction, 3% saline
- Nephrology consult
- Follow-up TSH 1.91 Cortisol 21
#Acute Urinary Retention
- Likely present for some time based on history of frequency / small volume urination / etc.
- Orantes placed
- tamsulosin
- TOV prior to discharge
#ASCVD
#Aortic Stenosis
#Elevated troponin
- Stable. s/p CABG x 2 and BioAVR in September at [facility].
- Continue ASA daily.
- EKG without evident ischemia.
- serial troponin down trended to within normal limits
- Suspect demand ischemia, not ACS
- Cardiology consult, appreciate recs
-Chest x-ray shows possible mild interstitial edema and trace left-sided pleural effusion. He is without evidence of gross volume overload on examination and is not requiring supplemental O2.
- proBNP 4590
- Given significant orthostasis, hesitant to diurese at this time
#Left lower extremity wound
S/p Mohs surgery
Mildly bleeding
-Wound care
-Will contact patient's [facility] molder [phone] for recommendations
DVT Prophylaxis: SCDs
Code Status: DNR
Anticipated Discharge: Within 24 hours
Subjective/Interval History
-
Patient was awake and alert this morning. He was able to follow verbal commands, and was oriented to time place and self. He reported no pain but when asked to open his eyes he reported that the light bothers him. Nurse reports that overnight he
had 1 hallucination but was able to be reoriented. Otherwise he had no complaints. No fevers chills shortness of breath or chest pain. With his PCP Dr. Nolasco ([phone]) who reported that patient declined started after surgery and
electrolyte abnormalities after surgery and given Lasix. The patient also had recurrent pleural effusions and multiple thoracenteses. They were in the process of getting patient a hospital bed at [facility]. [facility] [place] [facility], stated that family wants to transfer patient to [facility] when he is stable. Discussed with family about transfer who reported they will have to discuss amongst themselves before proceeding. Date of Service: January 17, 2025
Objective Data
-
Labs:
Laboratory Results
01/17/25 01/17/25 01/17/25
03:09 05:55 10:56
WBC 10.6
Hgb 11.2 L
Hct 35.5 L
Plt Count 198
Sodium 134 L 138 139
Potassium 3.5 3.4 L 3.8
Chloride 108 H 108 H 107
Carbon Dioxide 23 22 21 L
BUN 19 19 20
Creatinine 0.5 L 0.6 L 0.6 L
Glucose 75 70 73
Calcium 8.6 8.6 8.8
Vital Signs:
Vital Signs
Temp Pulse Resp BP Pulse Ox
98.8 F 89 21 142/98 98
01/17/25 08:22 01/17/25 11:03 01/17/25 11:03 01/17/25 11:03 01/17/25 02:08
I&O
01/16/25 01/17/25 01/18/25
06:59 06:59 06:59
Intake Total 900 / 900 890 / 890
Output Total 1100 / 1100 1500 / 1500
Balance -200 / -200 -610 / -610
Review of Systems
-
History Source: Patient
Constitutional: Denies Fever or Chills
EENT: Denies Runny Nose
Respiratory: Denies Cough or Trouble Breathing
Cardiac: Denies Chest Pain or Palpitations
Abdomen/GI: Denies Abdominal Pain, Nausea, Vomiting, Diarrhea or Constipated
Genitourinary: Denies Dysuria
Neuro: Reports Tremors (Mild, greatly reduced); Denies Headache
Physical Exam
-
General: No Apparent Distress, Comfortable and Cachectic
HEENT: Normocephalic, Atraumatic and PERRLA
Respiratory: Non Labored Respirations; Negative Wheezes or Crackles
Cardiac: Regular Rhythm and S1/S2; Negative Murmur
GI: Soft, Nontender, Nondistended and Normal Bowel Sounds
Musculoskeletal: No Edema
Skin: Warm, Dry and Lesions (Left lower extremity lesion from Mohs surgery wound mildly bleeding, senile purpura)
Neuro: Awake, Alert, Oriented and AO x 3
--- NOTE | 2025-01-17 14:56 | W.PN.UPDATE ---
Update Note
Progress Note Update
Spoke to Dr. Acosta via transfer center. She accepted pt. But no beds. Low priority transfer.
will make OP PCP aware.
--- NOTE | 2025-01-17 15:03 | W.PN.UPDATE ---
Update Note
Progress Note Update
Records received and reviewed from Dr. Juarez Grubbs's office. Underwent #27 Magna Ease tissue valve AVR and CABG x 2 with free RAYMUNDO to distal LAD and SVG to D2 10/04/2024. His preop echo showed EF of 45%. he did have postoperative atrial fibrillation
on postop day 1. He was not felt to be a candidate for anticoagulation given bleeding, multiple skin tears, and fall risk. Echocardiogram 10/10/2024 with EF 55 to 60%, normal RV function, well-seated AVR with no AR mild to moderate MR no
pericardial effusion. He was discharged on a short course of every other day Lasix. His postoperative course was also complicated by persistent left pleural effusion status post prior thoracenteses. There was at 1 point discussion about placement
of a PleurX catheter. His neurologist for Parkinson's diseases Dr. Kishor Krishna. In addition to marked hypertension on droxidopa, also has history of profound hypertension on midodrine in the past.
--- NOTE | 2025-01-17 17:44 | PTCARENOTE ---
Addendum entered by Asia Mayberry RN 01/17/25 18:16:
Removed 4mg Neupro patch. 2mg patch will start in AM.
Original Note:
Extensive discussion with family regarding transfer to [facility]. Assisted as able. [facility] transfer center reports no beds available, surge capacity so not likely to be available in near future. Also, clarifed order with Dr. Cochran regarding Neupro patch.
4mg dose patch d.c. will start 2mg dose in AM. also will restart home meds tonight.
[2025-01-17] MEDS: FLUZONE HIGH-DOSE 2025-26 0.5 ML IM (17:54)
[2025-01-17] MEDS: NON-FORMULARY ITEM 1 UNIT PO (17:54)
--- NOTE | 2025-01-17 18:17 | PTCARENOTE ---
Pt with intermittent visual hallucinations but remains AAO x3
[2025-01-17] MEDS: NON-FORMULARY ITEM 2 UNIT PO (21:04)
[2025-01-18] VITALS (17 sets, daily range): BP systolic 98–172; BP diastolic 58–99; PULSE 70–75; O2SAT 95; BMI 17.3
--- NOTE | 2025-01-18 05:00 | PTCARENOTE ---
Pt confused at times to situation at times, but remains AAOx3. Cooperative with care. Denies complaints at this time. Call alonzo within reach. Bed alarm in place for pt safety.
[2025-01-18 05:52] LABS: Hematocrit 33.6 % (39.0-52.0); Hemoglobin 10.5 g/dL (13.0-18.0); Mean Corp Hgb Conc. 31.3 g/dL (33.0-37.0); Mean Corpuscular Volume 88.0 fL (80.0-94.0); Platelet Count 194 10^3/uL (130-400); Red Cell Dist. Width 17.7 % (11.5-14.5)
--- NOTE | 2025-01-18 07:30 | W.PN.NEURO.1 ---
Today's Communication / Plan
-
Provide thiamine
Lowered rotigotine patch from 4 mg to 2 mg daily in addition to the patient's usual carbidopa/levodopa until seen by his outpatient Neurologist for further recommendations.
Restart rasagiline
Restart droxidopa
Neuro Assessment/Plan
Assessment
IMPRESSIONS/RECOMMENDATIONS:
Abrupt onset of change in mental status associated with 'seizure-like activity' and agitation
Recurrent fevers and unclear source of infection, now improving. Orthostatic hypotension/convulsive syncope likely produced 'seizure like activity.' Toxic metabolic etiologies otherwise may also be considered. Seizures are not clearly demonstrated
this time based on EEG results.
MRI brain is negative for any acute abnormalities.
Plan
Provide thiamine
Lowered rotigotine patch from 4 mg to 2 mg daily in addition to the patient's usual carbidopa/levodopa until seen by his outpatient Neurologist for further recommendations.
Restart rasagiline
Restart droxidopa
Will follow as needed
Subjective/Objective
Subjective Data
Date of Service: January 18, 2025
Objective Data
Vital Signs
Temp Pulse Resp BP Pulse Ox
36.6 C 65 16 156/71 100
01/17/25 23:06 01/18/25 06:00 01/18/25 06:00 01/18/25 06:00 01/18/25 02:00
Lab Results
01/18/25 05:23
01/17/25 10:56
PT 14.7 Sec (11.4-14.6) H 01/15/25 18:15
INR 1.12 01/15/25 18:15
APTT 30.2 Sec (23.4-35.0) 01/15/25 18:15
Sodium 139 mmol/L (135-145) 01/17/25 10:56
Potassium 3.8 mmol/L (3.5-5.1) 01/17/25 10:56
BUN 20 mg/dl (9-20) 01/17/25 10:56
Glucose 73 mg/dl (70-99) 01/17/25 10:56
Calcium 8.8 mg/dl (8.4-10.2) 01/17/25 10:56
Phosphorus 3.9 mg/dl (2.5-4.5) 01/16/25 02:31
Bio-B-Wkcxpkadvej Pept 4590 pg/ml 01/17/25 10:56
Patient Allergies
Penicillins Allergy (Verified 12/05/24 05:37)
Unknown
Data Reviewed
-
Orthostatic Testing: Report Reviewed
Labs: Report Reviewed
Reviewed with: Physician
Past History
Past History
ED Past Medical History: CAD (S/p triple bypass and AVR 09/2024) and Other (Parkinsons, history of Crohn's (apparently resolved), orthostatic hypotension)
ED Past Surgical History: Cardiac (AVR and triple bypass on 10/04/2024) and Orthopedic (Back surgery and hernia repair)
Social History
Tobacco: Non-smoker
Alcohol: None
Drug: None
Personal:
Living: with family
Family History
Family History: Other (reviewed and non-contributory)
Medications
-
Medications:
Generic Name Dose Route Start Last Admin
Trade Name Freq PRN Reason Stop Dose Admin
Acetaminophen 650 mg 01/16/25 00:40
Acetaminophen 325 Mg Tablet PO 02/13/25 00:39
Q4HPRN PRN
Mild Pain / Temp > 101
Aspirin 81 mg 01/16/25 08:00 01/17/25 09:05
Aspirin 81 Mg (Enteric Coated) Tablet PO 02/13/25 07:59 Not Given
DAILY NUBIA
Cyanocobalamin 1,000 mcg 01/16/25 09:30 01/17/25 09:08
Cyanocobalamin (Vitamin B-12) 500 Mcg Tablet PO 02/13/25 09:29 Not Given
DAILY NUBIA
Diazepam 2 mg 01/16/25 00:40
Diazepam 10 Mg/2 Ml Inj IV 02/13/25 00:39
Q6HPRN PRN
anxiety
Carbidopa/Levodopa 0 unit 01/17/25 18:00 01/17/25 21:04
70-280 Mg Extended PO 02/14/25 17:59 2 unit
Release Capsules [ QID NUBIA Administration
Crexont] - 2
Capsules Po Qid
Rasagiline 1 mg 01/16/25 08:00 01/17/25 09:08
Rasagiline (Azilect) 0.5 Mg Tablet (Non-Form) PO 02/13/25 07:59 Not Given
DAILY NUBIA
Rotigotine 2 mg 01/18/25 08:00
Rotigotine (Neupro) 2 Mg Patch TRANSDERM 02/15/25 07:59
DAILY NUBIA
Sodium Chloride 0 flush 01/16/25 01:00
Sodium Chloride 0.9% (Flush) Syringe IV 02/13/25 00:59
PER PROTOCOL NUBIA
Tamsulosin HCl 0.4 mg 01/16/25 08:00 01/17/25 09:05
Tamsulosin 0.4 Mg Capsule PO 02/13/25 07:59 Not Given
DAILY NUBIA
Thiamine HCl 100 mg 01/16/25 10:00 01/17/25 09:09
Thiamine 100 Mg Tablet PO 01/18/25 08:01 Not Given
DAILY NUBIA
[2025-01-18] MEDS: VITAMIN B1 100 MG PO (08:25)
[2025-01-18] MEDS: VITAMIN B-12 1000 MCG PO (08:25)
[2025-01-18] MEDS: ASPIR LOW (ENTERIC COATED) 81 MG PO (08:25)
[2025-01-18] MEDS: RASAGILINE MESYLATE 1 MG PO (08:26)
[2025-01-18] MEDS: NEUPRO 2 MG TRANSDERM (08:26)
[2025-01-18] MEDS: FLOMAX 0.4 MG PO (08:26)
[2025-01-18] MEDS: NON-FORMULARY ITEM 2 UNIT PO ×4 (08:28→21:01)
--- NOTE | 2025-01-18 08:44 | PN.CDI ---
CDI
- -
CDI:
Physician Documentation Request
Admit Date: 01/15/25 22:29
Dear Doctor Hakeem,
Clinical Indicators:
Current documentation includes diagnosis of encephalopathy.
01/16: 3% Saline infusion
Empiric antibiotics discontinued.
01/17 PN, ''During the hospital stay patient's sodium continue to improve and on 01/17 patient's mentation was back to baseline'
Sodium trend:
01/15/25 01/16/25 01/17/25
18:15 02:31 05:55
Sodium 125 L 123 L 138
If possible, please clarify the specific type of encephalopathy:
Acute metabolic encephalopathy
Other cause of encephalopathy (please specify)
Encephalopathy, unable to further specify
Other, please specify
Use of terms such as suspected, likely, concern for, or probable (associated with a specific diagnosis that is being evaluated, monitored, or treated as if it exists) are acceptable and can be coded in the inpatient setting, when documented at the
time of discharge.
Thank you,
DIANNE Crain RN
CDI Specialist
available via tiger text
Please use your independent medical judgment in providing your response.
--- NOTE | 2025-01-18 09:04 | PN.CDI ---
CDI
- -
CDI:
Physician Documentation Request
Admit Date: 01/15/25 22:29
Dear Doctor Hakeem,
Clinical Indicators:
Home medications include: Droxidopa 100 mg PO DAILY
01/17 Neurology PN, 'most likely etiology of for the prior event was orthostatic hypotension and convulsive syncope'
01/17 PN, 'Parkinson disease with history of autonomic dysfunction'
Based on the above, could you clarify the likely type of orthostatic hypotension:
Neurogenic orthostatic hypotension
Orthostatic hypotension only
Other,please specify
Use of terms such as suspected, likely, concern for, or probable (associated with a specific diagnosis that is being evaluated, monitored, or treated as if it exists) are acceptable and can be coded in the inpatient setting, when documented at the
time of discharge.
Thank you,
DIANNE Crain RN
CDI Specialist
available via tiger text
Please use your independent medical judgment in providing your response.
--- NOTE | 2025-01-18 10:53 | W.PN.ID1 ---
Date of Service
Date of Service: January 18, 2025
Today's Communication
Sign off
Assessment / Plan
New onset seizures
Encephalopathy
Leukocytosis
Fever
Parkinson's disease
CAD
Hx Chron's disease
Recommendations:
MRI nonrevealing.
White count remains normal. No fevers. Cognition appears back to baseline.
Continue off antibiotics.
At present, no apparent infectious process. Continue with supportive measures.
Will see again at your request.
����������������������������������������������������������
Chief Complaint
-: Other (Encephalopathy)
Subjective / Review of Systems
Review of Systems: No Fever and No Chills
Vital Signs / Physical Exam
Vital Signs
Vital Signs
Temp Pulse Resp BP Pulse Ox
97.1 F 69 14 107/70 99
01/18/25 07:55 01/18/25 10:00 01/18/25 10:00 01/18/25 10:00 01/18/25 08:59
Physical Exam
Constitutional: No Acute Distress, Comfortable, Chronically Ill and Non-toxic
Cardiovascular: S1/S2; Negative S3/S4
Pulmonary: Non Labored
Gastrointestinal: Soft and Non Tender
Neurological: AO x 3; Negative Meningeal Signs
Psychological: Calm
Objective Data
Lab Data
Lab Results
01/18/25 05:23
PT 14.7 Sec (11.4-14.6) H 01/15/25 18:15
INR 1.12 01/15/25 18:15
APTT 30.2 Sec (23.4-35.0) 01/15/25 18:15
Estimated Creat Clear 74 ml/min 01/17/25 10:56
Lactic Acid Cancelled 01/16/25 06:40
Total Bilirubin 0.9 mg/dl (0.2-1.3) 01/15/25 18:15
AST 23 U/L (17-59) 01/15/25 18:15
ALT < 10 U/L (0-50) 01/15/25 18:15
Alkaline Phosphatase 65 U/L (38-126) 01/15/25 18:15
Most recent labs reviewed.
Micro Results:
01/16/25 02:31 Blood Culture - Preliminary
Blood/Venous No Growth in 48 hours- Final report to follow
01/16/25 02:31 Blood Culture - Preliminary
Blood/Venous No Growth in 48 hours- Final report to follow
01/16/25 01:42 MRSA Screen - Final
Nose Staph aureus MRSA
01/16/25 02:26 Influenza Types A & B ([facility]) - Final
Nasal Swab Negative for Influenza A & B, NAAT
Negative results must be combined with clinical observations
and patient history.
Nucleic Acid Amplification test (NAAT)performed on the
evocatal platform.
Imaging:
01/17/2025 MRI brain: no evidence of acute intracranial abnormality. Moderate diffuse atrophy noted. Please see full dictation for additional detail.
01/15/2025 CXR (portable): small left pleural effusion. Multiple bands of subsegmental atelectasis and scarring. Mild interstitial cardiogenic pulmonary edema. Previous CABG surgery and aortic valve replacement noted. Please see full dictation
for additional detail.
01/15/2025 CT head without IV contrast: severe white matter leukoaraiosis in the frontal and parietal lobes. Mild diffuse cerebral and cerebellar volume loss noted. No evidence for acute transcortical infarct. Please see full dictation for
additional detail.
--- NOTE | 2025-01-18 11:00 | PTCARENOTE ---
Patient AAOx2, confused, reoriented. Bed and chair alarm on for safety. Patient + for visual hallucinations this morning, reported 2 men standing on each side of him, patient calm and cooperative. VSS. Orthos +, see documentation, patient
asymptomatic. Orantes pulled, awaiting first void. Awaiting transfer to [facility]. Family at bedside. Will closely monitor.
--- NOTE | 2025-01-18 11:47 | W.PN.HOSP.TC ---
Addendum entered and electronically signed by Jessica Kingsley MD 01/18/25 13:55:
Seen and examined the patient earlier today. Late documentation. Agree with the plan formulated by the resident.
Family was at bedside daughter and granddaughter and
They feel like patient is mostly back to baseline except for some hallucinations which patient sometimes realizes himself. They feel that his Parkinson's symptoms have gotten a lot better with the patch added.
On examination awake alert oriented
Cardiovascular system seems to appreciate
Chest clear to auscultation
Abdomen soft nontender
No rigidity noted
MRI of the brain-no evidence of acute intracranial abnormality. Moderate diffuse atrophy. 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
# Episode of shaking-possibly could have been seizures from hyponatremia?
Was given Keppra in the ER not continued by neurology
MRI of the brain without any acute changes
# Hypokalemia-correct
# Encephalopathy
Blood cultures negative so far
No more fevers
EEG without any seizures per discussion with neurology
MRI without any acute changes
Patient and family do not want LP-discontinued
He was started on antivirals and was also on ceftriaxone 1 g daily dose which were discontinued
Watch patient off of antimicrobials
# Acute urinary retention-Orantes catheter was placed in the ER-continue Flomax
# Parkinson disease with history of autonomic dysfunction
Rasagiline was on hold for cardiac surgery which was restarted recently
He is on Crexont and rasagiline and Droxidopa
Neurology evaluated
Per D/W his OP Neuro hallucinations can be worsened by Neupro.
also made aware agrees and advised to DC Patch.
# Hyponatremia-symptomatic
Possibly could have had seizure from that and worsening likely secondary seizure. Sodium is stable now
SIADH
3% saline given, when sodium corrected patient became more awake and alert
Normal TSH and cortisol level
# Mildly elevated troponin-
Repeat chest x-ray linear opacities in the left lung base atelectasis and or scarring. Trace left pleural effusion
# Aortic stenosis status post bioprosthetic aortic valve replacement at [facility] September 2024
# Coronary disease with history of CABG September 2024
# DVT prophylax-Lovenox.
# DNR
Discussed with patient's granddaughter, daughter and at bedside
Discussed with neurology and [facility] as well as with outpatient neurologist
Discussed with nursing
Discussed with infectious disease
D/W case management
Time spent over 50 minutes
Original Note:
Today's Communication/Plan
-
Restart home meds
Physiatry consult
Transfer process to [facility] initiated
Assessment / Plan
Assessment / Plan
Patient is a 79y M with PMH significant for Parkinson's disease who presents to ED for evaluation after shaking episode / suspected seizure at home this evening. At baseline, he continues to work and is functional with assist devices for
ambulation. Patient underwent CABG x 2 and bovine AVR at [facility] in September of this year. Following that surgery, he began to have increased episodes of bradykinesia / 'freezing' and general functional decline. Family notes that his medications have
been changed a number of times in an attempt to control his symptoms. In the ED, patient is noted to be agitated and restless and had some shaking episodes, was given Keppra and diazepam. Head CT negative for acute intracranial abnormalities. Labs
showed hyponatremia, patient was given IV fluids. In the hospital patient was initially obtunded and altered unable to respond to commands and continued to shake, urine study showed SIADH, patient fluid restricted and nephrology consulted for 3%
saline. Patient's outside PCP and neurologist were contacted who reported low sodium as recently as the end of November. They also reported significant medication changes that appear to be ongoing. Neurology was consulted for altered mental
status and possible seizures, EEG ordered and showed no seizure, brain MRI was unremarkable, LP pending. ID was consulted for fever and altered mental status with concerns for encephalitis or meningitis, patient was started on empiric antibiotics
and antivirals. Patient was also found to have elevated troponins and cardiology was consulted, EKG was unrevealing showed no evidence of active ACS, troponins down trended to within normal limits, echo was ordered which showed EF of 53% while
sitting aortic valve and no regional wall motion abnormalities. During the hospital stay patient's sodium continue to improve and on 01/17 patient's mentation was back to baseline according to family. ID recommended discontinuing empiric
antibiotics and antivirals. Patient was reevaluated by [employer] after mentation improved and restarted on his home medications. Neurology recommended decrease in rotigotine patch at lower dose. Family decided they did not want LP and wanted transfer
to [facility] transfer process initiated, but availability limited. Updated patient's PCP.
#Altered mental status
#Shaking
#Encephalopathy, unclear etiology
DDx includes seizure, encephalitis, meningitis, stroke, hyponatremia
- Elevated lactate level, hyponatremia, etc consistent with possible seizure
- Other history seems more consistent with worsening Parkinson's, urinary retention and pain / agitation.
- CT head with no acute abnormality.
- Neurology consult appreciate recs
-DC antiseizure medications, if restarted use lacosamide instead of levetiracetam
-Thiamine and B12
- oral home crexont plus rotigotine patch 2mg
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
- Repeat chest x-ray stable no evidence of pneumonia, trace left pleural effusion
#Parkinson's Disease
#Orthostatic hypotension, Parkinson's
Outpatient neurologist contacted at request of family
Neurologist okay with LP
Revaluated by [employer], patient allowed p.o., regular diet thin liquids
- Uncontrolled. Recent episodes of severe bradykinesia / rigidity / immobility.
- Change Crexont to Sinemet 4 times a day
-Rotigotine patch 4 mg daily instead of carbo levodopa
- Restart droxidopa per neuro
#Hyponatremia, resolved
- Na initially 125 improved to 139.
- urine studies indicating SIADH
- S/p fluid restriction, 3% saline
- Nephrology consult
- Follow-up TSH 1.91 Cortisol 21, ACTH 16
#Acute Urinary Retention
- Likely present for some time based on history of frequency / small volume urination / etc.
- Orantes placed
- tamsulosin
- TOV prior to discharge
#ASCVD
#Aortic Stenosis
#Elevated troponin
- Stable. s/p CABG x 2 and BioAVR in September at [facility].
- Continue ASA daily.
- EKG without evident ischemia.
- serial troponin down trended to within normal limits
- Suspect demand ischemia, not ACS
- Cardiology consult, appreciate recs
-Chest x-ray shows possible mild interstitial edema and trace left-sided pleural effusion. He is without evidence of gross volume overload on examination and is not requiring supplemental O2.
- proBNP 4590
- Given significant orthostasis, hesitant to diurese at this time
- Echo LVEF 53%, while sitting aortic valve, no regional wall motion abnormalities
#Left lower extremity wound
S/p Mohs surgery
Mildly bleeding
-Wound care
-Will contact patient's [facility] television repairer [phone] for recommendations
Dispo: Transfer to [facility]
Or acute versus skilled rehab
Physiatry consult
DVT Prophylaxis: SCDs
Code Status: DNR
Anticipated Discharge: Within 24 hours
Subjective/Interval History
-
Saw patient at bedside. He reports doing well with no issues. He is eager to get home to return to his business. Discussed with him that his family wants him transferred to [facility] and that if he wants to go home he should talk to his family.
Otherwise he endorsed no nausea vomiting fevers chills shortness of breath or chest pain. Date of Service: January 18, 2025
Objective Data
-
Labs:
Laboratory Results
01/18/25 01/18/25
05:23 10:32
WBC 6.9
Hgb 10.5 L
Hct 33.6 L
Plt Count 194
Sodium Pending
Potassium Pending
Chloride Pending
Carbon Dioxide Pending
BUN Pending
Creatinine Pending
Glucose Pending
Calcium Pending
Vital Signs:
Vital Signs
Temp Pulse Resp BP Pulse Ox
97.1 F 69 14 107/70 99
01/18/25 07:55 01/18/25 10:00 01/18/25 10:00 01/18/25 10:00 01/18/25 08:59
I&O
01/17/25 01/18/25 01/19/25
06:59 06:59 06:59
Intake Total 890 / 890 480 / 480
Output Total 1500 / 1500 250 / 250
Balance -610 / -610 230 / 230
Review of Systems
-
History Source: Patient
Constitutional: Denies Fever or Fatigue
EENT: Denies Sore Throat or Runny Nose
Respiratory: Denies Cough or Trouble Breathing
Cardiac: Denies Chest Pain or Palpitations
Abdomen/GI: Denies Abdominal Pain, Nausea, Vomiting, Diarrhea or Constipated
Genitourinary: Denies Dysuria
Musculoskeletal: Reports No Symptoms
Skin: Denies Itching
Neuro: Denies Dizzy, Headache, Weakness or Tremors
Physical Exam
-
General: Well Developed, No Apparent Distress, Comfortable and Cachectic; Negative Respiratory Distress
HEENT: Normocephalic and Atraumatic
Respiratory: Wheezes, Non Labored Respirations and Decreased Breath Sounds; Negative Crackles
Cardiac: Regular Rhythm and S1/S2; Negative Murmur
GI: Soft, Nontender, Nondistended and Normal Bowel Sounds
Musculoskeletal: No Clubbing and No Edema
Skin: Warm, Dry, Lesions (Left lower extremity Mohs surgery wound) and Other (Senile purpura)
Neuro: Awake, Alert, Oriented and AO x 3
--- NOTE | 2025-01-18 12:12 | W.PN.CARDCBS ---
Today's Communication / Plan
-
Overall doing well from a cardiac standpoint. Echo is stable. Card troponins are likely from nonischemic myocardial injury.
Would remain off all blood pressure medication for now with likely autonomic dysfunction. Continue PT.
Continue aspirin.
Will sign off. Follow-up with outpatient cardiology
Impression / Plan
-
Primary senior formulation scientist: Dr. Grubbs of [place]
Assessment:
Presentation with change in mental status
Concern for seizure-like activity/orthostasis/autonomic dysfunction
Urinary retention
Hyponatremia
Elevated troponin, suspected nonischemic myocardial injury in setting of above
Anemia
History of bio AVR and CABG times 2 10/04/24 at [place]
Postop orthostatic hypotension
Parkinson's disease
History of lumbar laminectomy
DNR CODE STATUS
Echo 01/17/2025EF 53%, well-seated aortic valve replacement with a mean gradient of 7. Trace AI, mild to moderate MR
Plan:
- Patient presented with change in mental status with concern for seizure-like activity. Of note he had recently restarted droxidopa for hypotension and Parkinson's.
- neurology evaluation ongoing. brain MRI without acute abnormality noted
- Echo is overall stable. I suspect abnormal troponin is nonischemic myocardial injury with no chest pains. Ejection fraction is preserved. His bioprosthetic AVR is stable.
- I see no clear signs of volume overload, and with orthostasis/autonomic dysfunction I will hold off on diuresis for now.
- Continue Sinemet and Neupro per neurology
- Discussed with patient and family at bedside
Progress Note - Electoral Officer
Subjective
Date of Service: January 18, 2025
Overall feeling better. Denies chest pains or shortness of breath.
Objective
Labs:
01/18/25 05:23
Labs
Hgb 10.5 g/dL (13.0-18.0) L 01/18/25 05:23
Hct 33.6 % (39.0-52.0) L 01/18/25 05:23
Plt Count 194 10^3/uL (130-400) 01/18/25 05:23
PT 14.7 Sec (11.4-14.6) H 01/15/25 18:15
INR 1.12 01/15/25 18:15
APTT 30.2 Sec (23.4-35.0) 01/15/25 18:15
Sodium 139 mmol/L (135-145) 01/17/25 10:56
Potassium 3.8 mmol/L (3.5-5.1) 01/17/25 10:56
BUN 20 mg/dl (9-20) 01/17/25 10:56
Creatinine 0.6 mg/dL (0.7-1.3) L 01/17/25 10:56
Glucose 73 mg/dl (70-99) 01/17/25 10:56
Troponins
01/15/25 01/16/25 01/16/25
18:15 00:53 06:31
Troponin I 0.022 0.058 H* D 0.044 H*
01/16/25
13:27
Troponin I 0.033
Vital Signs and I&O:
Vital Signs
Temp Pulse Resp BP Pulse Ox
97.1 F 69 14 107/70 99
01/18/25 07:55 01/18/25 10:00 01/18/25 10:00 01/18/25 10:00 01/18/25 08:59
Vital Signs
Temp Pulse Resp BP Pulse Ox
97.1 F 69 14 107/70 99
01/18/25 07:55 01/18/25 10:00 01/18/25 10:00 01/18/25 10:00 01/18/25 08:59
Intake & Output
01/16/25 01/17/25 01/18/25 01/19/25
06:59 06:59 06:59 06:59
Intake Total 900 / 900 890 / 890 480 / 480
Output Total 1100 / 1100 1500 / 1500 250 / 250
Balance -200 / -200 -610 / -610 230 / 230
Physical Exam
Physical Exam
GEN: No distress, awake, Ox3
HEENT: supple, anicteric, mmm
LUNGS: CTA, no wheezes/rales
CV: Reg, S1/S2, 1/6 syst LSB, no gallop
ABD: soft, BS+, NT/ND
EXT: No edema
NEURO: Gross non-focal
SKIN: No rash
[2025-01-18 12:27] LABS: Blood Urea Nitrogen 23 mg/dl (9-20); Calcium 8.9 mg/dl (8.4-10.2); Carbon Dioxide 28 mmol/L (22-30); Chloride 101 mmol/L (98-107); Estimated Creatinine Clearance 76 ml/min; Glucose 118 mg/dl (70-99); Potassium 3.4 mmol/L (3.5-5.1); Sodium 133 mmol/L (135-145); eGFR > 60.00
--- NOTE | 2025-01-18 13:01 | CON.MD ---
Consultation - Medical
-
Chief Complaint:�Ambulatory dysfunction
�
History of Present Illness:�79-year-old male with PMH (as below) presented to [facility] on 01/15/2025 with shaking episode and concern for seizure at home. At baseline he continues to work and is functional with assist devices for
ambulation. He recently had a CABG x 2 with a bovine aortic valve replacement at [place] in September 2024. After that surgery he had increased episodes of bradykinesia and general functional decline. He had numerous medication changes to try and
help control his symptoms. He had shaking episodes and was agitated in the ER and he was given Keppra and diazepam. CT of the head was negative for acute intracranial abnormalities. Labs showed hyponatremia and he was started on IV fluids. He
was initially obtunded and altered unable to respond to commands and continued to shake. Urine studies showed SIADH as etiology of the hyponatremia and patient had fluid restriction. Nephrology was consulted and he was given 3% saline. Neurology
was consulted and EEG showed no seizure activity. MRI of the brain was unremarkable and LP was ordered but he family declined. Infectious disease was consulted for fever and altered mental status with concern for encephalitis or meningitis and
patient was started on empiric antibiotics and antivirals. He also had elevated troponins and cardiology evaluated him with no evidence of active acute coronary syndrome and echocardiogram but EF 53% with no regional wall motion abnormalities. His
sodium improved back to baseline and his cognitive function improved. Empiric antibiotics and antivirals were discontinued. Overall he is doing better.
�
Past Medical History:�Parkinson's disease, ASCVD, aortic stenosis, orthostatic hypotension
Procedure History:�CABG x 2 and aortic valve repair, lumbar laminectomy, hernia repair, cataract
Family History:�None pertinent
�
Social History:�
Functional Level Premorbidly:�Independent with all activities�
Functional Level Currently:�Min to mod assist for transfers. Mod assist of 2 ambulating 15 feet from the commode to the chair with rolling walker. Min assist grooming. Max assist toileting and lower extremity self-care.
�
Tobacco:�Denies�
Alcohol:�Occasional
Drug use:�Denies�
�
Lives with:�Spouse
24-hour assistance available:�
Number of floors:�2
# steps to enter:�
# steps to second floor: Has elevator access
Potential First floor set up:�Yes
Driving:�
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
�
�
Allergies:�
Allergy/AdvReac Type Severity Reaction Status Date / Time
Penicillins Allergy Unknown Verified 12/05/24 05:37
�
Review of Systems:�
Constitutional: (x) abNormal _fatigue
Eye: (x) Normal _
Ear/Nose/Throat: (x) Normal _
Respiratory: (x) Normal _
Cardiovascular: (x) Normal _
Gastrointestinal: (x) Normal _
Genitourinary: (x) Normal _
Musculoskeletal: (x) Normal _
Integumentary: (x) Normal _
Neurologic: (x) abNormal _Parkinson's disease
Psychiatric: (x) Normal _
Endocrine: (x) Normal _
Hematologic/Lymphatic: (x) Normal _
Allergic/Immunologic: (x) Normal _
�
Medications:�
Active Current Visit Medication List
Category Date Time Status
Acetaminophen [Tylenol] Med 01/16/25 00:40 Active
650 mg PO Q4HPRN PRN
Aspirin Low Dose EC [Aspir Low (Enteric Coated)] Med 01/16/25 08:00 Active
81 mg PO DAILY
Cyanocobalamin [Vitamin B-12] Med 01/16/25 09:30 Active
1,000 mcg PO DAILY
Droxidopa Med 01/18/25 14:00 Active
100 mg PO DAILY
Enoxaparin Sodium [Lovenox] Med 01/18/25 18:00 Active
40 mg SC QPM
Flush (0.9% Sodium Chloride) [Flush (Nss)] Med 01/16/25 01:00 Active
See Dose Instructions IV PER PROTOCOL
Non-Formulary Item Med 01/17/25 18:00 Active
See Dose Instructions PO QID
Rasagiline Mesylate Med 01/16/25 08:00 Active
1 mg PO DAILY
Tamsulosin [Flomax] Med 01/16/25 08:00 Active
0.4 mg PO DAILY
�
Vitals:�
Temp Pulse Resp BP Pulse Ox
97.1 F 67 13 115/70 99
01/18/25 07:55 01/18/25 12:00 01/18/25 12:00 01/18/25 12:00 01/18/25 08:59
Height 5 ft 9 in
Actual Weight 53 kg
Body Mass Index (BMI) 17.3
�
Physical Exam:�
General Appearance/Observation: Well-developed, well-nourished male in no apparent distress.�
Pain/Comfort Assessment: Denies�
Mood/Affect: Appropriate�
�
Integumentary/Operative Site:�No lesions noted during course of exam
�
Eyes: Conjunctiva/Lids: normal��� Pupils: pupils equal round and reactive to light
Ears/Nose/Throat: oral mucosa moist, throat clear.������������ Lips/Teeth/Gums: normal
Cardiovascular: Heart: regular, no murmur�
Pulses: dorsalis pedis 2+ bilaterally�
Respiratory: Respiratory Effort/Chest Expansion: normal������ Auscultation: Clear to auscultation bilaterally
Gastrointestinal: abdomen not tender, no distension, normal abdominal bowel sounds
Genitourinary: No Orantes�
Rectal Exam: Deferred�
Extremities:�Edema: None�Cyanosis: None�Trophic�changes: None
�
Neurology Exam:
Orientation: Alert, Oriented to self, Time, Place�
Memory: Intact for recent medical concerns
Comprehension: Intact
Two step command: Intact
Cranial Nerves:
�� CNII:�Pupillary light reflex: Intact���
�� CN III, IV, : Extraocular muscles: Intact�
�� CN VII:�Facial movement: Symmetric
�� CN VIII:�Hearing: Normal
�� CN IX/X:�Speech & swallow: Mild hypophonia,�Position of Uvula: Midline
�� CN XI:�Shoulder shrug: Symmetric
�� CN XII:�Tongue protrusion: Midline
Sensory:
�� Light touch: Intact in bilateral upper and lower extremities
�
Reflexes:
�� Biceps: 2+ bilaterally
�� Brachioradialis: 2+ bilaterally
�� Triceps: 2+ bilaterally
�� Patellar: 2+ bilaterally
�� Achilles: 0 bilaterally
�� Babinski: Down going bilaterally
�� Clonus: None
�� Mike: Negative bilaterally�
Cerebellar: Dysmetria/Ataxia: None�
Musculoskeletal: Motor: (Manual muscle scale 0-5)�
Muscle SA EF WE EE FF FA HF KE DF EHL PF
Right� 2+ 4 4 4 4 5 5 5
Left 2+ 4 4 4 4 5 5 5
�
Tone: Normal in all extremities�
Range of Motion: Passively within normal limits in all extremities except for bilateral shoulder flexion/abduction�
Lab Results
Laboratory Data
01/18/25 05:23
01/18/25 10:32
PT 14.7 Sec (11.4-14.6) H 01/15/25 18:15
INR 1.12 01/15/25 18:15
APTT 30.2 Sec (23.4-35.0) 01/15/25 18:15
Total Bilirubin 0.9 mg/dl (0.2-1.3) 01/15/25 18:15
AST 23 U/L (17-59) 01/15/25 18:15
ALT < 10 U/L (0-50) 01/15/25 18:15
Alkaline Phosphatase 65 U/L (38-126) 01/15/25 18:15
Total Protein 7.2 g/dl (6.3-8.2) 01/15/25 18:15
Albumin 4.0 g/dl (3.5-5.0) 01/15/25 18:15
�
Diagnostic Results:�as per HPI�
�
Assessment
79 y/o left-handed left handed M [facility] (Parkinson's disease, ASCVD, aortic stenosis, orthostatic hypotension) with 01/15/2025 seizure concerned likely secondary to hyponatremia requiring 3% saline thought to be from SIADH with worsening Parkinson
symptoms since his CABG and AVR September 2024 resulting in ADL and ambulatory dysfunction.
Plan�
PM&R�PT/OT to increase independence with ADLs, improve balance, coordination, endurance, strength, mobility, community reintegration, decreased burden of care on others and family education.�
�
Parkinson's disease: Carbidopa/levodopa, rasagiline
Seizure: Thought to be secondary to hyponatremia which is now resolved.
HTN: Medications held with orthostasis
Orthostatic hypotension: Likely autonomic in nature related to Parkinson's. Taken droxidopa 100 mg daily. May also be related to Flomax which is daily. Suggest switching to at bedtime to minimize effects when medication first is taken.
-Can use bilateral thigh-high teds. Can also use midodrine first thing in the morning and in the afternoon. Can do an evening dose if no supine hypertension.
Normocytic anemia: No active bleeding, hemoglobin 10.5 from 11.7 on admission. On B12 supplement. No active bleeding noted.� Continue to monitor.�
�
Psych: Monitor mood, medications as needed.�
Skin: monitor for pressure sores/rashes/lesions.�
Pain: acetaminophen as needed.�
Bowel: Colace and Senna, PRN bisacodyl.�
Bladder: Time void, PVRs, PRN straight cath.� Had urinary retention and started on Flomax 0.4 mg daily. Suggest making Flomax at night to minimize orthostasis side effect
DVT Prophylaxis: Mechanical Lovenox.�
Pulmonary: Incentive spirometry�
Safety: Continue to reinforce assistance with all transfers.�
Code Status: DNR�per chart
Dispo�(date/plan/equipment needs): Home with family care.� Social history reviewed.�
Functional and Medical Goals:�Modified Independent with ADL�s, ambulation, transfers�
Discharge Destination:��Acute inpatient rehabilitation
A total of 60 minutes were spent with the patient preparing for the evaluation, obtaining history, performing examination and evaluation, counseling, data review, case management, care coordination, sales order processor, and EMR documentation.� Discussed
case with physical and Occupational Therapy and .
Summary of recommendations:
-�Discharge Destination:��Acute inpatient rehabilitation
Orthostatic hypotension: Likely autonomic in nature related to Parkinson's. May also be related to Flomax which is daily.
- Suggest switching to at bedtime to minimize effects when medication first is taken.
-Can use bilateral thigh-high teds. Can also use midodrine first thing in the morning and in the afternoon. Can do an evening dose if no supine hypertension.-�Suggest making Flomax at night to minimize orthostasis side effect
�
Thank you for allowing me to care for your patient. Please contact me with any questions or concerns.
Consultation
-
Date/Time Consultation Requested: 01/18/25
Date/Time Consultation Performed: 01/18/25
Requesting Provider: Dr. Jessica Kingsley
Performing Provider: Dr. Fab Torres
Reason for Consultation: Encephalopathy
[2025-01-18] MEDS: KCL 40 MEQ PO (14:07)
--- NOTE | 2025-01-18 16:34 | CM ---
F/U: BRAD Guerrerocuco was told by Hospitalist that patient is ready from a Medical standpoint and can go to Acute Rehab. PT/OT confirmed that patient would benefit. Family chose [facility] so sent the referral and they accepted as long as the patient
has no IV medications or appointments plus a BM. Patient has BM on 01/16, Hospitalist said that he should not have appointments for 3 weeks. PLAN: Sent to [facility] tomorrow.
[2025-01-18] MEDS: LOVENOX 40 MG SC (18:16)
--- NOTE | 2025-01-18 18:53 | PTCARENOTE ---
Neupro patch removed from patient.
[2025-01-19] VITALS (9 sets, daily range): BP systolic 109–173; BP diastolic 52–98; BMI 16.8
--- NOTE | 2025-01-19 03:38 | PTCARENOTE ---
PCT reported that pt hypothermic orally with disposable thermometer. This RN and PCT informed pt that we wanted to obtain rectal temp to verify, but patient refused, became agitated, combative. Got OOB and began swinging hotel valet attendant at staff.
Code dajuan called. Pt assisted back to bed. Warm blankets placed on pt, but continues to refuse temperature check. NSR-SB on CM, maintained on RA. Bed alarm in place for pt safety. Care ongoing.
--- NOTE | 2025-01-19 07:25 | PTCARENOTE ---
Pt continued to set off bed alarm, removed gown, environmental monitoring technician, etc and stated that he was 'going to shower and then going home'. Reorientation attempted. Toileting attempted. Hygiene care offered. Pt continued with confusion, became agitated,
threatening staff. Pt assisted back into bed and placed in b/l wrist restraints per SUPPLIER QUALITY MANAGER orders. Report given to oncoming RN.
[2025-01-19] MEDS: FLOMAX 0.4 MG PO (08:09)
[2025-01-19] MEDS: RASAGILINE MESYLATE 1 MG PO (08:09)
[2025-01-19] MEDS: ASPIR LOW (ENTERIC COATED) 81 MG PO (08:09)
[2025-01-19] MEDS: VITAMIN B-12 1000 MCG PO (08:09)
[2025-01-19] MEDS: NON-FORMULARY ITEM 2 UNIT PO ×4 (08:10→21:12)
--- NOTE | 2025-01-19 08:31 | W.PN.HOSP.TC ---
Today's Communication/Plan
-
Patient agitated on restraints
Tamsulosin QPM
Psychiatry consult
LP
Assessment / Plan
Assessment / Plan
Patient is a 79y M with PMH significant for Parkinson's disease who presents to ED for evaluation after shaking episode / suspected seizure at home this evening. At baseline, he continues to work and is functional with assist devices for
ambulation. Patient underwent CABG x 2 and bovine AVR at [place] in September of this year. Following that surgery, he began to have increased episodes of bradykinesia / 'freezing' and general functional decline. Family notes that his medications have
been changed a number of times in an attempt to control his symptoms. In the ED, patient is noted to be agitated and restless and had some shaking episodes, was given Keppra and diazepam. Head CT negative for acute intracranial abnormalities. Labs
showed hyponatremia, patient was given IV fluids. In the hospital patient was initially obtunded and altered unable to respond to commands and continued to shake, urine study showed SIADH, patient fluid restricted and nephrology consulted for 3%
saline. Patient's outside PCP and neurologist were contacted who reported low sodium as recently as the end of November. They also reported significant medication changes that appear to be ongoing. Neurology was consulted for altered mental
status and possible seizures, EEG ordered and showed no seizure, brain MRI was unremarkable, LP pending. ID was consulted for fever and altered mental status with concerns for encephalitis or meningitis, patient was started on empiric antibiotics
and antivirals. Patient was also found to have elevated troponins and cardiology was consulted, EKG was unrevealing showed no evidence of active ACS, troponins down trended to within normal limits, echo was ordered which showed EF of 53% while
sitting aortic valve and no regional wall motion abnormalities. During the hospital stay patient's sodium continue to improve and on 01/17 patient's mentation was back to baseline according to family. ID recommended discontinuing empiric
antibiotics and antivirals. Patient was reevaluated by [employer] after mentation improved and restarted on his home medications. Neurology recommended decrease in rotigotine patch at lower dose. Family decided they did not want LP and wanted transfer
to [facility] transfer process initiated, but availability limited. Updated patient's PCP. Patient was evaluated by PMR for acute rehab placement and a bed was found at [facility]. However on the morning of 01/19 patient became
disoriented and agitated requiring restraints. In the morning he was unable to be reoriented by family and in discussion with family decided to pursue LP. Psychiatry was consulted for his agitation.
#Altered mental status
#Shaking
#Encephalopathy, unclear etiology
DDx includes seizure, encephalitis, meningitis, stroke, hyponatremia
- Elevated lactate level, hyponatremia, etc consistent with possible seizure
- Other history seems more consistent with worsening Parkinson's, urinary retention and pain / agitation.
- CT head with no acute abnormality.
- Neurology consult appreciate recs
-DC antiseizure medications, if restarted use lacosamide instead of levetiracetam
-Thiamine and B12
- oral home crexont plus rotigotine patch 2mg
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
- Repeat chest x-ray stable no evidence of pneumonia, trace left pleural effusion
-Disoriented and agitation requiring restraints 01/19, possibly delirium/sundowning possibly due to rotigotine patch
-Low body temperature 95.3 without other signs of infection
- LP results pending
#Parkinson's Disease
#Orthostatic hypotension, Parkinson's
Outpatient neurologist contacted at request of family
Neurologist okay with LP
Revaluated by [employer], patient allowed p.o., regular diet thin liquids
- Uncontrolled. Recent episodes of severe bradykinesia / rigidity / immobility.
- Change Crexont to Sinemet 4 times a day
-Rotigotine patch 4 mg daily instead of carbo levodopa
- Restart droxidopa per neuro
-family wants to hold off droxidopa until conversation with patient's joy operator helper
- Appreciate physiatry consult
Orthostatic hypotension: Likely autonomic in nature related to Parkinson's. May also be related to Flomax which is daily.
- Suggest switching Flomax to at bedtime to minimize effects when medication first is taken.
-Can use bilateral thigh-high teds. Can also use midodrine first thing in the morning and in the afternoon.
#Hyponatremia, resolved
- Na initially 125 improved to 139.
- urine studies indicating SIADH
- S/p fluid restriction, 3% saline
- Nephrology consult
- Follow-up TSH 1.91 Cortisol 21, ACTH 16
#Acute Urinary Retention
- Likely present for some time based on history of frequency / small volume urination / etc.
- Orantes placed
- tamsulosin every p.m.
- TOV successful
#ASCVD
#Aortic Stenosis
#Elevated troponin
- Stable. s/p CABG x 2 and BioAVR in September at [place].
- Continue ASA daily.
- EKG without evident ischemia.
- serial troponin down trended to within normal limits
- Suspect demand ischemia, not ACS
- Cardiology consult, appreciate recs
-Chest x-ray shows possible mild interstitial edema and trace left-sided pleural effusion. He is without evidence of gross volume overload on examination and is not requiring supplemental O2.
- proBNP 4590
- Given significant orthostasis, hesitant to diurese at this time
- Echo LVEF 53%, while sitting aortic valve, no regional wall motion abnormalities
#Left lower extremity wound
S/p Mohs surgery
Mildly bleeding
-Wound care
-Will contact patient's [place] security guard [phone] for recommendations
Dispo: acute rehab
Appreciate physiatry consult
DVT Prophylaxis: SCDs
Code Status: DNR
Anticipated Discharge: Within 24 hours
Subjective/Interval History
-
Patient was seen at bedside, overnight patient became confused around 3 AM when temperature was being checked. Patient attempted to get up and leave hospital and was put on restraints. This morning patient seemed disoriented and we updated family
members who came to help with reorientation. In discussion with family they did agree to lumbar puncture. Patient reported no pain anywhere no fevers chills despite low body temperature, no shortness of breath chest pain nausea vomiting. Date of
Service: January 19, 2025
Objective Data
-
Labs:
Laboratory Results
01/19/25
08:30
WBC Pending
Hgb Pending
Hct Pending
Plt Count Pending
Sodium Pending
Potassium Pending
Chloride Pending
Carbon Dioxide Pending
BUN Pending
Creatinine Pending
Glucose Pending
Calcium Pending
Vital Signs:
Vital Signs
Temp Pulse Resp BP Pulse Ox
92.6 F L 58 14 109/66 97
01/19/25 03:08 01/19/25 08:00 01/19/25 08:00 01/19/25 08:00 01/18/25 19:28
I&O
01/18/25 01/19/25 01/20/25
06:59 06:59 06:59
Intake Total 480 / 480 860 / 860
Output Total 250 / 250 260 / 260
Balance 230 / 230 600 / 600
Review of Systems
-
Unable to obtain full review of systems at this time due to: Acuity
History Source: Patient
Constitutional: Denies Fever or Chills
EENT: Denies Runny Nose
Respiratory: Denies Cough or Trouble Breathing
Cardiac: Denies Chest Pain or Palpitations
Abdomen/GI: Denies Abdominal Pain, Nausea, Vomiting, Diarrhea or Constipated
Genitourinary: Denies Dysuria
Musculoskeletal: Reports No Symptoms
Skin: Reports Sores; Denies Itching or Rash
Neuro: Denies Dizzy or Headache
Physical Exam
-
General: No Apparent Distress, Comfortable and Cachectic; Negative Respiratory Distress or Fever
HEENT: Normocephalic and Atraumatic
Respiratory: Clear to Auscultation and Non Labored Respirations; Negative Wheezes or Crackles
Cardiac: Regular Rhythm and S1/S2; Negative Murmur
GI: Soft, Nontender, Nondistended and Normal Bowel Sounds
Musculoskeletal: No Clubbing and No Edema
Skin: Warm and Dry; Negative Rash
Neuro: Awake and Alert; Negative Oriented (Not oriented to place situation)
[2025-01-19 08:51] LABS: Hematocrit 33.9 % (39.0-52.0); Hemoglobin 11.0 g/dL (13.0-18.0); Mean Corp Hgb Conc. 32.4 g/dL (33.0-37.0); Mean Corpuscular Volume 84.8 fL (80.0-94.0); Platelet Count 182 10^3/uL (130-400); Red Cell Dist. Width 17.3 % (11.5-14.5)
[2025-01-19 09:07] LABS: Blood Urea Nitrogen 23 mg/dl (9-20); Calcium 8.3 mg/dl (8.4-10.2); Carbon Dioxide 27 mmol/L (22-30); Chloride 102 mmol/L (98-107); Estimated Creatinine Clearance 74 ml/min; Glucose 93 mg/dl (70-99); Potassium 3.4 mmol/L (3.5-5.1); Sodium 134 mmol/L (135-145); eGFR > 60.00
--- NOTE | 2025-01-19 11:35 | PTCARENOTE ---
Assumed care of patient. Patient very confused and agitated. B/L wrist restraints in place, explained to patient and family. Reoriented patient to surroundings. Patient AAOxself, +visual hallucinations. Family at bedside. Patient refusing rectal
temp, will reassess when returns from IR. Patient currently in IR for LP. Will closely monitor.
--- NOTE | 2025-01-19 12:01 | PTCARENOTE ---
Patient returned from IR, back bandaid CDI. Patient 'tired,' still with confusion. B/L wrist restraints remain. Patient agreeable to rectal thermometer, temp 94.8, notified, warm blankets applied, will start bouchra hugger when delivered. Continuing
to closely monitor.
--- NOTE | 2025-01-19 12:38 | W.PN.UPDATE ---
Update Note
Progress Note Update
Seen and examined the patient earlier today. Late documentation. Agree with the plan formulated by the resident.
Family was at bedside daughter and granddaughter and
Pt was confused overnight. ON restraints
On examination awake alert oriented
Cardiovascular system seems to appreciate
Chest clear to auscultation
Abdomen soft nontender
No rigidity noted
Patient was awake and alert. He knew that this was [facility] but did not get the month right. He appeared to be confused and wanting to get the restraints off
There is a skin tear noted on the hand- finger
MRI of the brain-no evidence of acute intracranial abnormality. Moderate diffuse atrophy. 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
# Hypothermia -normal TSH. No evidence of active infection. Felicita hugger
# Encephalopathy
Blood cultures negative so far
No more fevers
EEG without any seizures per discussion with neurology
MRI without any acute changes
Patient was given 2 days of ceftriaxone and antivirals which were discontinued
Neupro patch was discontinued after discussion with neurology yesterday
Patient was very confused overnight likely hospital-acquired delirium
Patient does have some chronic changes on his MRI which I reviewed with patient's daughter may be having some underlying cognitive dysfunction and hospital-acquired delirium
Psych eval with Parkinson disease
complete work up with LP family wats it now.
# Episode of shaking-possibly could have been seizures from hyponatremia?
Was given Keppra in the ER not continued by neurology
MRI of the brain without any acute changes, but has chronic changes
# Hypokalemia-correct
# Acute urinary retention-Orantes catheter was placed in the ER-continue Flomax
# Parkinson disease with history of autonomic dysfunction
Rasagiline was on hold for cardiac surgery which was restarted recently
He is on Crexont and rasagiline . Family wants o talk to their OP cards before they want him back on Droxidopa
Neurology evaluated
Per D/W his OP Neuro hallucinations can be worsened by Neupro.
also made aware agrees and advised to DC Patch. Stopped.
# Hyponatremia-symptomatic
Possibly could have had seizure from that and worsening likely secondary seizure. Sodium is stable now
SIADH
3% saline given, when sodium corrected patient became more awake and alert
Normal TSH and cortisol level
# Mildly elevated troponin-
Repeat chest x-ray linear opacities in the left lung base atelectasis and or scarring. Trace left pleural effusion
Cardiology signed off
# Aortic stenosis status post bioprosthetic aortic valve replacement at [place] September 2024
# Coronary disease with history of CABG September 2024
# DVT prophylax-Lovenox.
# DNR
Discussed with patient's granddaughter, daughter and at bedside
Discussed with nursing
time over 50 min
Part of this note was created using voice recognition system. Occasional wrong word or��sound alike� substitutions may have inadvertently occurred due to the inherent limitations of voice recognition software. If noted kindly bring it to my
attention for correction.
[2025-01-19] MEDS: KCL 20 MEQ PO (13:21)
--- NOTE | 2025-01-19 15:38 | CM ---
F/U: CODE purple had to be called last night because the patient got aggressive and would not calm down. Patient is better today, but went for a LP to see if there is any reason for last night. [facility] aware of what happened and still following.
[facility] will not take patients over the weekend. Transport was cancelled. PLAN: Acute at [facility] when ready.
--- NOTE | 2025-01-19 16:45 | CS.PSYCHR ---
Consult Summary - Psychiatry
-
asked to see patient due to agitation requiring restraints this morning
79 yo man admitted for concern for seizure. Has had 5 year history of Parkinson's disease, had been doing well until September 2024 when he had elective cardiac surgery. Since that time family has noted significant decline in functioning, with more
prominent parkinsonism symptoms as well as recently visual hallucinations. Here in hospital has commented on seeing men in room when no one is there. Became upset this morning thinking he was going to be harmed and tried to strike out.
No prior psychiatric history. 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 56 years, two children 5 grandchildren. Lives with , was running up until 4 days
before surgery. Was scheduled to go to rehab today but put on hold due to behavioral disturbance.
Current meds from Dr. Kishor Krishna neurologist at [facility] 70-280 two qid, droxidopa 100 mg daily, rasagiline 1 mg daily, as well as aspirin
Met with pt, , emailed Dr Krishna
Pleasant elderly man, very parkinsonized but able to interact well--has good sense of humor (laughs at my jokes) Tells me that there is a man sitting next to me, accepts it when I tell him it is a hallucination. Not depressed, upset he could not go
to rehab, wants to live, no thoughts about suicide. No significant cognitive impairment, oriented x 3 and to situation. Insight/judgment fair
Impression: hallucinations due to carbidopa/levodop therapy
I have ordered pimavanserin, non-formulary but first line for this
In interim would use seroquel 25 mg hs and 12.5 mg q 6 hr prn if ok with cardiology
[2025-01-19] MEDS: LOVENOX 40 MG SC (18:02)
[2025-01-19] MEDS: D5/0.9% SODIUM CHLORIDE 1000 IV (19:45)
[2025-01-19] MEDS: MELATONIN 5 MG PO (20:33)
[2025-01-19] MEDS: HALDOL 1 MG IV (21:13)
[2025-01-20] VITALS (11 sets, daily range): BP systolic 109–190; BP diastolic 60–111
[2025-01-20] MEDS: HALDOL 0.5 MG IV (02:19)
--- NOTE | 2025-01-20 02:30 | PTCARENOTE ---
Pt continues with confusion, agitation. Continues to declare that he needs to go to work. B/l wrist restraints remain in place. Pt continues with low temp by rectal thermometer, refuses bouchra banuelos. Kicks blankets off. Warm blanket placed around
pt's shoulders and over his lap. STAT dose of medication given per MAR per FAMILY PSYCHOLOGIST orders with some improvement. remains at bedside. Care ongoing.
[2025-01-20] MEDS: RASAGILINE MESYLATE 1 MG PO (07:57)
[2025-01-20] MEDS: ASPIR LOW (ENTERIC COATED) 81 MG PO (07:57)
[2025-01-20] MEDS: VITAMIN B-12 1000 MCG PO (07:58)
[2025-01-20] MEDS: NON-FORMULARY ITEM 2 UNIT PO ×2 (07:58→12:43)
--- NOTE | 2025-01-20 11:24 | W.PN.UPDATE ---
Update Note
Progress Note Update
Patient seen by me on from 11am-11:15am
Psychiatry follow up for management of agitation in context of delirium/parkinsons. Chart reviewed and case discussed with nursing. Pimavanserin was ordered by psych yesterday but not on formulary. Per family, patient had a paradoxical reaction to
Valium when received in the ER. Patient received Haldol IV last night with limited response of about an hour. This morning Qtc is 412 so has shortened since last EKG. At this time patient remains restrained. He is restless and admits to seeing
multiple men in the room with us who are not present. He thinks we are 'in a single family home in [facility] He knows the year is 2024 and says its January.
Plan- Will do a now order of seroquel 12.5mg to see how patient responds. Nursing will report back to me. If patient does well, will then order it standing as acquiring pimavanserin will take time if we are able to get it at all.
--- NOTE | 2025-01-20 11:45 | W.PN.HOSP.TC ---
Today's Communication/Plan
-
Restraints required overnight due to agitation
Patient received Haldol overnight
Repeat EKG with QTc within normal limits
Transfer to [facility]
Assessment / Plan
Assessment / Plan
Patient is a 79y M with PMH significant for Parkinson's disease who presents to ED for evaluation after shaking episode / suspected seizure at home this evening. At baseline, he continues to work and is functional with assist devices for
ambulation. Patient underwent CABG x 2 and bovine AVR at [facility] in September of this year. Following that surgery, he began to have increased episodes of bradykinesia / 'freezing' and general functional decline. Family notes that his medications have
been changed a number of times in an attempt to control his symptoms. In the ED, patient is noted to be agitated and restless and had some shaking episodes, was given Keppra and diazepam. Head CT negative for acute intracranial abnormalities. Labs
showed hyponatremia, patient was given IV fluids. In the hospital patient was initially obtunded and altered unable to respond to commands and continued to shake, urine study showed SIADH, patient fluid restricted and nephrology consulted for 3%
saline. Patient's outside PCP and neurologist were contacted who reported low sodium as recently as the end of November. They also reported significant medication changes that appear to be ongoing. Neurology was consulted for altered mental
status and possible seizures, EEG ordered and showed no seizure, brain MRI was unremarkable, LP pending. ID was consulted for fever and altered mental status with concerns for encephalitis or meningitis, patient was started on empiric antibiotics
and antivirals. Patient was also found to have elevated troponins and cardiology was consulted, EKG was unrevealing showed no evidence of active ACS, troponins down trended to within normal limits, echo was ordered which showed EF of 53% while
sitting aortic valve and no regional wall motion abnormalities. During the hospital stay patient's sodium continue to improve and on 01/17 patient's mentation was back to baseline according to family. ID recommended discontinuing empiric
antibiotics and antivirals. Patient was reevaluated by [facility] after mentation improved and restarted on his home medications. Neurology recommended decrease in rotigotine patch at lower dose. Family decided they did not want LP and wanted transfer
to [facility] transfer process initiated, but availability limited. Updated patient's PCP. Patient was evaluated by PMR for acute rehab placement and a bed was found at [facility]. However on the morning of 01/19 patient became
disoriented and agitated requiring restraints. In the morning he was able to be reoriented by family and in discussion with family decided to pursue LP. LP done by RR was unable to obtain enough CSF fluid for analysis. Patient was rehydrated with
a bolus of fluid. Psychiatry was consulted for patient's agitation and recommended pimavanserin for Parkinson's psychosis however medication is nonformulary and patient did not receive it, Seroquel was also recommended however given patient's
previous EKG showing prolonged QTc it was not given. On the night of 01/19 patient became agitated again requiring Haldol after repeat EKG showed normal QTc. In the morning of 01/20 patient's labs showed a decrease in sodium to likely due to fluid
bolus. Patient began to exhibit similar tremors and shaking as was seen on admission. Patient was accepted at [facility] by Dr. Claudia Corral who was called and given an update. In the interim patient received salt tabs and quetiapine for continued
hallucinations and agitation.
#Altered mental status
#Shaking
#Encephalopathy, unclear etiology
DDx includes seizure, encephalitis, meningitis, stroke, hyponatremia
- Elevated lactate level, hyponatremia, etc consistent with possible seizure
- Other history seems more consistent with worsening Parkinson's, urinary retention and pain / agitation.
- CT head with no acute abnormality.
- Neurology consult appreciate recs
-DC antiseizure medications, if restarted use lacosamide instead of levetiracetam
-Thiamine and B12
- oral home crexont plus rotigotine patch 2mg
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
- Repeat chest x-ray stable no evidence of pneumonia, trace left pleural effusion
-Disoriented and agitation requiring restraints 10/24, possibly delirium/sundowning possibly due to rotigotine patch
-Low body temperature 95.3 without other signs of infection, s/p Felicita hugger temperature improved to within normal limits
- LP dry tap, no fluid for analysis, may attempt in 2 days, IR recommends fluid bolus
- Psych consult appreciate recs
-Impression: hallucinations due to carbidopa/levodop therapy
- pimavanserin, non-formulary but first line for this
- In interim would use quetiapine/seroquel 12.5 mg hs
#Parkinson's Disease
#Orthostatic hypotension, Parkinson's
Outpatient neurologist contacted at request of family
Neurologist okay with LP
Revaluated by [facility], patient allowed p.o., regular diet thin liquids
- Uncontrolled. Recent episodes of severe bradykinesia / rigidity / immobility.
- Change Crexont to Sinemet 4 times a day
-Rotigotine patch 4 mg daily instead of carbo levodopa
- Restart droxidopa per neuro
-family wants to hold off droxidopa until conversation with patient's respiratory services manager
- Appreciate physiatry consult
Orthostatic hypotension: Likely autonomic in nature related to Parkinson's. May also be related to Flomax which is daily.
- Suggest switching Flomax to at bedtime to minimize effects when medication first is taken.
-Can use bilateral thigh-high teds. Can also use midodrine first thing in the morning and in the afternoon.
#Hyponatremia
131 today, dropped due to fluid bolus
- urine studies indicating SIADH
- S/p fluid restriction, 3% saline
-1 g salt tabs
- Nephrology consult
- Follow-up TSH 1.91 Cortisol 21, ACTH 16
#Acute Urinary Retention
- Likely present for some time based on history of frequency / small volume urination / etc.
- Orantes placed
- tamsulosin every p.m.
- TOV successful
#ASCVD
#Aortic Stenosis
#Elevated troponin
- Stable. s/p CABG x 2 and BioAVR in September at [facility].
- Continue ASA daily.
- EKG without evident ischemia.
- serial troponin down trended to within normal limits
- Suspect demand ischemia, not ACS
- Cardiology consult, appreciate recs
-Chest x-ray shows possible mild interstitial edema and trace left-sided pleural effusion. He is without evidence of gross volume overload on examination and is not requiring supplemental O2.
- proBNP 4590
- Given significant orthostasis, hesitant to diurese at this time
- Echo LVEF 53%, while sitting aortic valve, no regional wall motion abnormalities
#Left lower extremity wound
S/p Mohs surgery
Mildly bleeding
-Wound care
-Will contact patient's [facility] router tender [phone] for recommendations
- Unable to reach [facility] dermat[facility]
Dispo: acute rehab
Appreciate physiatry consult
DVT Prophylaxis: SCDs
Code Status: DNR
Anticipated Discharge: Today
Subjective/Interval History
-
Patient was seen at bedside with family. He was tremulous similar to his first day here, and having hallucination that someone was attacking him. He reported mild pain in his left anterior thigh. He has no pain in his abdomen chest or neck.
Patient also refused was too agitated for a.m. labs. Overnight patient was agitated requiring 2 doses of Haldol. EKG checked prior to Haldol administration with QT within normal limits. Date of Service: January 20, 2025
Objective Data
-
Labs:
Laboratory Results
01/20/25
06:00
WBC Pending
Hgb Pending
Hct Pending
Plt Count Pending
Sodium Pending
Potassium Pending
Chloride Pending
Carbon Dioxide Pending
BUN Pending
Creatinine Pending
Glucose Pending
Calcium Pending
Vital Signs:
Vital Signs
Temp Pulse Resp BP Pulse Ox
98.7 F 83 16 135/60 97
01/20/25 08:02 01/20/25 06:00 01/20/25 06:00 01/20/25 04:47 01/20/25 08:20
I&O
01/19/25 01/20/25 01/21/25
06:59 06:59 06:59
Intake Total 860 / 860
Output Total 260 / 260 500 / 500
Balance 600 / 600 -500 / -500
Review of Systems
-
Unable to obtain full review of systems at this time due to: Acuity
History Source: Patient and Family
Constitutional: Denies Fever or Chills
EENT: Denies Eye Pain
Respiratory: Denies Cough or Trouble Breathing
Cardiac: Denies Chest Pain or Palpitations
Abdomen/GI: Denies Abdominal Pain, Nausea, Vomiting, Diarrhea or Constipated
Genitourinary: Denies Dysuria
Skin: Denies Itching
Neuro: Reports Tremors; Denies Dizzy or Headache
Psych: Reports Anxious
Physical Exam
-
General: Appears in Distress, Conversant and Cachectic; Negative Respiratory Distress or Fever
HEENT: Normocephalic and Atraumatic
Respiratory: Non Labored Respirations; Negative Wheezes or Crackles
Cardiac: Regular Rhythm, S1/S2 and Tachycardic; Negative Murmur
GI: Soft, Nontender, Nondistended and Normal Bowel Sounds
Musculoskeletal: No Clubbing and No Edema
Skin: Warm, Dry and Lesions
Neuro: Awake, Alert and Tremors
Psych: Agitated and Other (Visual hallucinations)
[2025-01-20 12:02] LABS: Hematocrit 30.7 % (39.0-52.0); Hemoglobin 10.4 g/dL (13.0-18.0); Mean Corp Hgb Conc. 33.9 g/dL (33.0-37.0); Mean Corpuscular Volume 83.7 fL (80.0-94.0); Platelet Count 198 10^3/uL (130-400); Red Cell Dist. Width 17.1 % (11.5-14.5)
[2025-01-20 12:37] LABS: Blood Urea Nitrogen 14 mg/dl (9-20); Calcium 8.1 mg/dl (8.4-10.2); Carbon Dioxide 26 mmol/L (22-30); Chloride 102 mmol/L (98-107); Estimated Creatinine Clearance 74 ml/min; Glucose 91 mg/dl (70-99); Magnesium 1.6 mg/dl (1.6-2.3); Potassium 3.6 mmol/L (3.5-5.1); Sodium 131 mmol/L (135-145); eGFR > 60.00
--- NOTE | 2025-01-20 12:54 | W.PN.UPDATE ---
Update Note
Progress Note Update
called in by nursing on 01/20/2025 at 12:45pm due to seizure-like activity. the entire episode lasted about 15 seconds. It started with significant shaking of left arm and full tightening of body and ended with eyes rolled up and back. Episode self
resolved. neurology and primary team contacted and updated. per nursing this was the second time this has happened today. first resulted in rapid response call.
--- NOTE | 2025-01-20 12:55 | W.PN.NEURO.1 ---
Today's Communication / Plan
-
.
Subjective/Objective
Subjective Data
Date of Service: January 20, 2025
Neurology Consultation Note.
HPI: This is a 79-year-old man who presented to [facility] on 01/15/2025 with encephalopathy.
Mr. Snow is unable to provide a history. According to EMR the patient has had fluctuating mental status with associated agitation requiring soft restraints since admission.
I have reviewed the video taken by patient's spouse over the phone of recurrent spells where patient is holding onto bed rails being awake, hyperactive with nonrhythmic movements, talking through the spell and intermittently attending to medical
personnel.
Review of vital signs was notable for intermittent hypertension up to 187/111 at 6:43 AM today and fever up to 38.8C on 01/16/2025.
PDMP: none
EKG: NSR, QTcB Int : 412 ms
Labs: Sodium�131, calcium�8.1, magnesium is 1.6, normal WBCs, platelets, free T4.
LP(01/19/2025) dry tap
Brain MRI w/wo josi(01/17/2025) No evidence of acute intracranial abnormality. Moderate diffuse atrophy. Moderate to severe leukomalacia with increased T2 and FLAIR signal within the white matter, stable from examination of April 08, 2024.
MAR in ER: Diazepam 5 mg, Keppra 1500 mg once, ceftriaxone
MAR: Haloperidol 1 mg given on , 0.5 mg given at 219 on 01/20/2025.
The patient was started on Neupro on 04/18/2024.
PMH: CAD, parkinsonism/autonomic dysfunction, neuropathy
PSH: CABG, bioprostetic AVR, hernia repair, lumbar laminectomy, bilateral cataract surgery
SH: , non-smoker. 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
FH: Not pertinent to current presentation
All: PNC
ROS: General: Positive for weight loss (approximately 20 pounds), decreased appetite.
Genitourinary: Positive for testicular swelling, getting up every hour at night to urinate.
Musculoskeletal: Positive for leg pain, stiffness.
General: Restrained in no acute distress
Cardio: Regular rate and rhythm without murmur. Extremities are without cyanosis or edema.
Neuro:
Mental Status: Lethargic, oriented to name, 'hospital 'present. Intermittently agitated. Follows simple requests intermittently. Nonfluent. No hemineglect.
Cranial Nerves: Pupils are equally round and reactive to light. Horizontal EOMs full. Blink to threat bilaterally. No nystagmus. No dysarthria
Motor: Increased motor tone in upper and lower extremities. Moves all limbs symmetrically.
Reflexes: Bilateral grasp
Sensory: Unable to due to poor attention
Coordination: No tremors myoclonic movements.
Gait: deferred
Assessment and Plan:
I. Hyperactive delirium. Low suspicion for epileptic spells.
II. History of IPD/autonomic dysfunction
III. Encephalopathy (neurodegenerative, toxic )
IV. Dry lumbar puncture. The most common cause is�anatomical variations�(degenerative arthritis, spinal fusion).
- Follow seizure precautions
- Please check B12, prolactin, CK,
- Avoid benzodiazepines
- Continue IV thiamine
- Frequent reassurance, touch, and verbal orientation can lessen disruptive behaviors; family members or other familiar persons are preferred, but professional sitters can also be used; Delusions and hallucinations should be neither endorsed nor
challenged. - - Antipsychotic agents have limited efficacy and are associated with increased mortality
- Psychiatry follow-up
- Please recall neurology service with any questions or concerns.
-The case was discussed with patient's daughter in detail.
I personally reviewed all radiology and labs along with past medical records pertinent to current medical problems. Total time spent in patient care is 55 minutes.
Thank you for allowing us to participate in the care of this patient. Please do not hesitate to contact us with any questions or concerns.
Objective Data
Vital Signs
Temp Pulse Resp BP Pulse Ox
37.1 C 82 16 124/96 97
01/20/25 08:02 01/20/25 12:00 01/20/25 12:00 01/20/25 12:00 01/20/25 08:20
Lab Results
01/20/25 11:47
01/20/25 11:47
PT 14.7 Sec (11.4-14.6) H 01/15/25 18:15
INR 1.12 01/15/25 18:15
APTT 30.2 Sec (23.4-35.0) 01/15/25 18:15
Sodium 131 mmol/L (135-145) L 01/20/25 11:47
Potassium 3.6 mmol/L (3.5-5.1) 01/20/25 11:47
BUN 14 mg/dl (9-20) 01/20/25 11:47
Glucose 91 mg/dl (70-99) 01/20/25 11:47
Calcium 8.1 mg/dl (8.4-10.2) L 01/20/25 11:47
Phosphorus 3.9 mg/dl (2.5-4.5) 01/16/25 02:31
Bfm-B-Pcsgaaiyhxn Pept 4590 pg/ml 01/17/25 10:56
Patient Allergies
Penicillins Allergy (Verified 12/05/24 05:37)
Unknown
Vital Signs and Labs
-
Vital Signs and Labs:
Vital Signs
Temp Pulse Resp BP Pulse Ox
37.1 C 82 16 124/96 97
01/20/25 08:02 01/20/25 12:00 01/20/25 12:00 01/20/25 12:00 01/20/25 08:20
Lab Results
01/20/25 11:47
01/20/25 11:47
PT 14.7 Sec (11.4-14.6) H 01/15/25 18:15
INR 1.12 01/15/25 18:15
APTT 30.2 Sec (23.4-35.0) 01/15/25 18:15
Sodium 131 mmol/L (135-145) L 01/20/25 11:47
Potassium 3.6 mmol/L (3.5-5.1) 01/20/25 11:47
BUN 14 mg/dl (9-20) 01/20/25 11:47
Glucose 91 mg/dl (70-99) 01/20/25 11:47
Calcium 8.1 mg/dl (8.4-10.2) L 01/20/25 11:47
Phosphorus 3.9 mg/dl (2.5-4.5) 01/16/25 02:31
Umt-J-Yeswdnwvexs Pept 4590 pg/ml 01/17/25 10:56
Medications
-
Medications:
Generic Name Dose Route Start Last Admin
Trade Name Freq PRN Reason Stop Dose Admin
Acetaminophen 650 mg 01/16/25 00:40
Acetaminophen 325 Mg Tablet PO 02/13/25 00:39
Q4HPRN PRN
Mild Pain / Temp > 101
Aspirin 81 mg 01/16/25 08:00 01/20/25 07:57
Aspirin 81 Mg (Enteric Coated) Tablet PO 02/13/25 07:59 81 mg
DAILY NUBIA Administration
Cyanocobalamin 1,000 mcg 01/16/25 09:30 01/20/25 07:58
Cyanocobalamin (Vitamin B-12) 500 Mcg Tablet PO 02/13/25 09:29 1,000 mcg
DAILY NUBIA Administration
Droxidopa 100 mg 01/18/25 14:00 01/20/25 12:43
Droxidopa 100 Mg Capsule (Non-Form) PO 02/15/25 13:59 Not Given
DAILY NUBIA
Enoxaparin Sodium 40 mg 01/18/25 18:00 01/19/25 18:02
Enoxaparin Sodium 40 Mg/0.4 Ml Syringe SC 02/15/25 17:59 40 mg
QPM NUBIA Administration
Dextrose/Sodium Chloride 1,000 mls @ 75 mls/hr 01/19/25 19:00 01/19/25 19:45
D5/0.9% Sodium Chloride IV 1,000 mls
.[id number] NUBIA Administration
Melatonin 5 mg 01/19/25 22:00 01/19/25 20:33
Melatonin 5 Mg Tablet PO 02/16/25 21:59 5 mg
HS NUBIA Administration
Carbidopa/Levodopa 0 unit 01/17/25 18:00 01/20/25 12:43
70-280 Mg Extended PO 02/14/25 17:59 2 unit
Release Capsules [ QID NUBIA Administration
Crexont] - 2
Capsules Po Qid
Pimavanserin 34 Mg 0 microgram 01/20/25 08:00
Capsule [Nuplazid] - PO 02/17/25 07:59
1 Capsule (34 Mg) DAILY NUBIA
Po Once Daily
Rasagiline 1 mg 01/16/25 08:00 01/20/25 07:57
Rasagiline (Azilect) 0.5 Mg Tablet (Non-Form) PO 02/13/25 07:59 1 mg
DAILY NUBIA Administration
Sodium Chloride 0 flush 01/16/25 01:00
Sodium Chloride 0.9% (Flush) Syringe IV 02/13/25 00:59
PER PROTOCOL NUBIA
Tamsulosin HCl 0.4 mg 01/19/25 22:00 01/19/25 21:37
Tamsulosin 0.4 Mg Capsule PO 02/16/25 21:59 Not Given
HS NUBIA
Home Medications
-
Home Medications
rasagiline 1 mg tablet 1 mg PO DAILY Parkinson's 04/08/24
aspirin 81 mg tablet 81 mg PO DAILY Blood Clot Prevention/Tx 01/15/25
carbidopa 70 mg-levodopa ER 280 mg capsule,immed and extended release (Crexont) 2 cap PO QID Parkinson's Disease 01/15/25
droxidopa 100 mg capsule 100 mg PO DAILY Orthostatic hypotension 01/15/25
--- NOTE | 2025-01-20 12:57 | PTCARENOTE ---
Patient just had an episode of 'seizure like activity' which lasted for about 10 seconds. Patient all of a sudden became more tremulous then his baseline, eyes rolled back. Patient now appears postictal now. VS stable. SR on monitor.
--- NOTE | 2025-01-20 13:04 | W.PN.UPDATE ---
Update Note
Progress Note Update
Seen and examined the patient earlier today. Late documentation. Agree with the plan formulated by the resident.
Family was at bedside daughter and
Pt was confused overnight. ON restraints. stayed in the room
leather dresser noticed that he was shaking. No eyes rolling back as he had at home. Rapid response was called felt that this was not a seizure.
On examination awake alert oriented
Cardiovascular system seems to appreciate
Chest clear to auscultation
Abdomen soft nontender
Patient was able to communicate with eyes closed. He is very confused he does have rigidity all over with tremors of upper extremity
MRI of the brain-no evidence of acute intracranial abnormality. Moderate diffuse atrophy. 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
# Hypothermia -normal TSH. No evidence of active infection. Felicita banuelos prn
# Encephalopathy
Blood cultures negative so far
No more fevers
EEG without any seizures per discussion with neurology
MRI without any acute changes
Patient was given 2 days of ceftriaxone and antivirals which were discontinued
Neupro patch was discontinued after discussion with neurology
Patient was very confused overnight likely hospital-acquired delirium
Lumbar puncture was attempted yesterday could not obtain much fluid
Patient was hydrated with 500 mL of IV fluids yesterday to try again.
Psychiatric valuation appreciated. Patient could not get any Seroquel given long QTc but QTc has shortened since then therefore Seroquel is going to be tried
I spoke to pharmacy we do not carry pimavanserin and could not be ordered till Wednesday after reviewing with director.
Discussed with psychiatry and neurology to kindly evaluate
Family to reorient the patient
Sodium trended down unclear if patient had was a seizure which caused the sodium to go down
Prolactin level ordered
# Episode of shaking-possibly could have been seizures from hyponatremia?
Was given Keppra in the ER not continued by neurology
MRI of the brain without any acute changes, but has chronic changes
# Hypokalemia-correct
# Acute urinary retention-Orantes catheter was placed in the ER-continue Flomax
# Parkinson disease with history of autonomic dysfunction
Rasagiline was on hold for cardiac surgery which was restarted recently
He is on Crexont and rasagiline . Family wants o talk to their OP cards before they want him back on Droxidopa
Per D/W his OP Neuro hallucinations can be worsened by Neupro.Stopped.
# Hyponatremia-symptomatic on admission
Possibly could have had seizure from that and worsening likely secondary seizure.
SIADH
3% saline given, when sodium corrected patient became more awake and alert
Is delirious now
Sodium 131
Normal TSH and cortisol level
Will start NACL tabs. Order placed.
# Mildly elevated troponin-
Repeat chest x-ray linear opacities in the left lung base atelectasis and or scarring. Trace left pleural effusion
Cardiology signed off
# Prolonged QTc-better
# Aortic stenosis status post bioprosthetic aortic valve replacement at [place] September 2024
# Coronary disease with history of CABG September 2024
# DVT prophylax-Lovenox.
# DNR
Discussed with patient's daughter and at bedside
Discussed with nursing
Discussed psychiatry, nursing, cardiology
time over 50 min
Part of this note was created using voice recognition system. Occasional wrong word or��sound alike� substitutions may have inadvertently occurred due to the inherent limitations of voice recognition software. If noted kindly bring it to my
attention for correction.
--- NOTE | 2025-01-20 13:13 | W.PN.UPDATE ---
Addendum entered and electronically signed by Jessica Kingsley MD 01/20/25 13:20:
updated.
Original Note:
Update Note
Progress Note Update
Patient obtained a bed at [facility] family would like to initiate the transfer
Will proceed
[2025-01-20] MEDS: MAGNESIUM SULFATE 102 GRAMS IV (13:52)
[2025-01-20] MEDS: FLUSH (NSS) 1 FLUSH IV (13:53)
--- NOTE | 2025-01-20 14:00 | PTCARENOTE ---
Bed available at [facility]. Transport set up and patient to be picked up at 4 PM. Report given to receiving JUSTIN Valdes. Patient continues with agitation, combative at time. Bilateral wrist restraints in place. VS stable. Neurology in room.
Mag. rider infusing as ordered.
[2025-01-20] MEDS: SODIUM CHLORIDE 1 GRAM PO (15:08)
[2025-01-20] MEDS: SEROQUEL 12.5 MG PO (15:08)
--- NOTE | 2025-01-20 15:31 | W.PN.UPDATE ---
Update Note
Progress Note Update
Saw patient again. Confused. Willing to take salt tablets now.
Family agreeable for transfer
Discussed with nursing and patient's daughter at bedside
--- NOTE | 2025-01-20 15:46 | CM ---
Patient is being discharged to [facility] for specialized Neurological acute care services.
[2025-01-20] MEDS: D5/0.9% SODIUM CHLORIDE IV (19:34)
== END 2025-01-20 16:52 | disposition short-term general hospital (02) | DRG 644 ==
LOC: IMU 22:29
PROVIDERS: Radiology Vascular & Interventional Radiology; Student in an Organized Health Care Education/Training Program; ADMITTING PHYSICIAN Hospitalist; ATTENDING PHYSICIAN Hospitalist; CONSULT PHYSICIAN Internal Medicine Cardiovascular Disease; CONSULT PHYSICIAN Internal Medicine Infectious Disease; CONSULT PHYSICIAN Physical Medicine & Rehabilitation; CONSULT PHYSICIAN Psychiatry & Neurology Neurology; CONSULT PHYSICIAN Psychiatry & Neurology Psychiatry; CONSULT PHYSICIAN Specialist; EMERGENCY PHYSICIAN Student in an Organized Health Care Education/Training Program; FAMILY PHYSICIAN Internal Medicine
PROC: 3E02340 Introduction of Influenza Vaccine into Muscle, Percutaneous Approach (ICD-10-PCS; 2025-01-17)
PROC: B01B1ZZ Fluoroscopy of Spinal Cord using Low Osmolar Contrast (ICD-10-PCS; 2025-01-19)
PROC: 009U3ZX Drainage of Spinal Canal, Percutaneous Approach, Diagnostic (ICD-10-PCS; 2025-01-19)
DX: E22.2 Syndrome of inappropriate secretion of antidiuretic hormone (principal); E87.20 Acidosis, unspecified; G93.40 Encephalopathy, unspecified; K50.90 Crohn's disease, unspecified, without complications; R64 Cachexia; Z68.1 Body mass index [BMI] 19.9 or less, adult; F05 Delirium due to known physiological condition; G20.A1 Parkinson's disease without dyskinesia, without mention of fluctuations; I95.1 Orthostatic hypotension; R33.8 Other retention of urine; I25.10 Atherosclerotic heart disease of native coronary artery without angina pectoris; Z95.1 Presence of aortocoronary bypass graft; R56.9 Unspecified convulsions; Z88.0 Allergy status to penicillin; Z79.82 Long term (current) use of aspirin; Z79.899 Other long term (current) drug therapy; Z66 Do not resuscitate; Z82.5 Family history of asthma and other chronic lower respiratory diseases; Z95.3 Presence of xenogenic heart valve; D64.9 Anemia, unspecified; T42.8X5A Adverse effect of antiparkinsonism drugs and other central muscle-tone depressants, initial encounter; R79.89 Other specified abnormal findings of blood chemistry; Z11.52 Encounter for screening for COVID-19; Z23 Encounter for immunization
CPT/HCPCS: 62328; 70450; 70553; 71045; 71046; 80048; 80053; 81003; 81015; 82024; 82533; 82550; 83605; 83735; 83880; 83930; 83935; 84100; 84146; 84300; 84443; 84484; 85025; 85027; 85610; 85730; 87040; 87070; 87147; 87502; 87811; 90662; 92526; 92610; 93005; 93306; 95813; 96374; 96375; 96376; 97116; 97163; 97167; 97535; 99291; A9575; G0008